=== PATIENT | female | born 1945 | race Caucasian/White ===

== ENCOUNTER 2018-09-27 17:11 | Observation (INO) | payer OTHER ==
--- OUTSIDE RECORDS SUMMARY | 2018-09-27 17:32 | XMS REPORT | Clinical Summary ---
:1945 Author Organization [facility] Address [address] [place] [address] Care Team Providers Name Role Phone Lázaro Butterfield MD Primary Care Provider Allergies Active Allergy Reactions Severity Noted Date Comments Amlodipine Other (See Comments) 02/07/2016 "makes me sick" Diltiazem Hcl 02/07/2016 Codeine Anaphylaxis High 02/07/2016 Cannot breath Gabapentin Other (See Comments) 02/07/2016 Hydralazine Other (See Comments) 12/17/2017 Body aches and coughing Hydrocodone Shortness Of Breath High 02/07/2016 Losartan-Hydrochlorothia Hives 02/07/2016 zide Latex, Natural Rubber 02/07/2016 "makes me skin breakout" Lisinopril 02/07/2016 Hydrocodone-Acetaminophe Shortness Of Breath High 02/07/2016 n Promethazine Other (See Comments) 02/07/2016 "Vomitting" Milnacipran 02/07/2016 Quetiapine 02/07/2016 Tramadol Palpitations, Other Medium 02/07/2016 (See Comments) Trazodone Shortness Of Breath High 02/07/2016 Simvastatin Other (See Comments) 02/07/2016 Blisters and rashes Medications Medication Sig Dispensed Refills Start Date End Date Status levothyroxine Take 75 mcg 0 Active (SYNTHROID, LEVOXYL) by mouth 75 mcg tablet every morning. aspirin (ECOTRIN) 81 Take 81 mg by 0 Active MG enteric coated mouth 2 (two) tablet times a day. estradiol (ESTRACE) 1 Take 1 mg by 0 Active MG tablet mouth nightly. clonAZEPAM (KlonoPIN) Take 0.5 mg 0 Active 0.5 MG tablet by mouth every 8 (eight) hours as needed for anxiety. metoprolol succinate Take 100 mg 0 Active XL (TOPROL-XL) 100 mg by mouth 2 24 hr tablet (two) times a day. omeprazole OTC Take 20 mg by 0 Active (PriLOSEC OTC) 20 MG mouth daily. EC tablet MAGNESIUM ORAL Take 1 tablet 0 Active by mouth daily. Patient stated takes OTC and doesnot know the dosage CYANOCOBALAMIN, Inject as 0 Active VITAMIN B-12, (B-12 directed COMPLIANCE INJ) every 30 (thirty) days. cholecalciferol, Take by mouth 0 Active vitamin D3, (VITAMIN daily. D3) 5,000 unit tablet docosahexanoic Take by mouth 0 Active acid/epa (FISH OIL daily. ORAL) ESTRADIOL, BULK, MISC Take 1 mg by 0 Discontinued mouth 8 nightly. meclizine (ANTIVERT) Take 25 mg by 0 Discontinued 25 mg tablet mouth 3 9 (three) times a day as needed for dizziness. dabigatran etexilate Take 1 60 capsule 0 12/18/2017 (PRADAXA) 150 mg capsule (150 8 capsuIndications: mg total) by Prevent mouth 2 (two) Thromboembolism in times a day Chronic Atrial for 30 days. Fibrillation phenazopyridine Take 1 tablet 30 tablet 0 08/09/2018 (PYRIDIUM) 200 MG (200 mg 9 tablet total) by mouth 3 (three) times a day as needed for bladder spasms for up to 10 days. Active Problems Problem Noted Date Renal mass 04/14/2017 Atrial fibrillation 02/07/2016 Encounters Date Type Specialty Care Team Description 08/09/2018 Surgery Urology Nico Mckeon CYSTOSCOPY, W/ 200 MD Xiang UNITS BOTULINUM TOXIN INJECTED INTO THE BLADDER 08/09/2018 Anesthesia Event Urology Donte Das DO 08/09/2018 Hospital Encounter Urology Nico Mckeon MD 01/25/2018 Hospital Encounter Procedural Cristy Crespo Paroxysmal atrial Cardiology MD Giovana fibrillation (HCC) 01/19/2018 Transcribe Orders Procedural Cristy Crespo Paroxysmal atrial Cardiology MD Giovana fibrillation (Primary Dx) 12/17/2017 Anesthesia Event Procedural Altaf Briggs, Cardiology 12/17/2017 Surgery Procedural Azk, Nadim Cv left atrial Cardiology MD Giovana appendage closure [87757 (CPT)] 12/17/2017 - Hospital Encounter Cardiology Cristy Crespo Atrial fibrillation , 12/18/2017 MD Giovana unspecified type 12/15/2017 Transcribe Orders Procedural Cristy Crespo Atrial fibrillation, Cardiology MD Giovana unspecified type (Primary Dx) after 09/26/2017 Family History Medical History Relation Name Comments Heart disease Father Heart disease Mother Relation Name Status Comments Father Mother Social History Tobacco Use Types Packs/Day Years Used Date Never Smoker Smokeless Tobacco: Never Used Alcohol Use Drinks/Week oz/Week Comments No Sex Assigned at Date Recorded Not on file Job Start Date Occupation Industry Not on file Not on file Not on file Travel History Travel Start Travel End No recent travel history available. Last Filed Vital Signs Vital Sign Reading Time Taken Blood Pressure 149/84 08/09/2018 11:35 AM CDT Pulse 80 08/09/2018 11:35 AM CDT Temperature 36.6 C (97.8 F) 08/09/2018 11:35 AM CDT Respiratory Rate 16 08/09/2018 11:35 AM CDT Oxygen Saturation 97% 08/09/2018 11:35 AM CDT Inhaled Oxygen Concentration - - Weight 70.9 kg (156 lb 6.4 oz) 08/09/2018 10:13 AM CDT Height 167.6 cm (5' 6") 08/09/2018 10:13 AM CDT Body Mass Index 25.24 08/09/2018 10:13 AM CDT Plan of Treatment Health Maintenance Due Date Last Done Comments BREAST CANCER SCREENING 09/05/1993 COLON CANCER SCREENING 09/05/1993 SHINGLES VACCINES (#1) 09/05/1993 65+ PNEUMOCOCCAL VACCINE (1 of 2 - PCV13) 09/05/2008 PNEUMOCOCCAL POLYSACCHARIDE VACCINE AGE 65 AND OVER 09/05/2008 INFLUENZA VACCINE 11/24/2018 Implants Implanted Type Area Insulation Blanket Maker Device Shelf Model / Identifier Expiration Serial / Date Lot Device Closure Watchcarlyle Felicia 24mm - [id number] Cardiovascular N/A: [place] 06/28/2020 [id number] / Implanted: 12/17/2017 (Quantity not on file) Implants N/A SCIENTIFIC / JEANINE [id number] Implantable Loop Recorder-07/17/2014 Implantable Loop Implanted: 07/17/2014 (Quantity not on file) Recorder Reveal Linq Shipwright-01/02/2015 Implanted: 01/02/2015 (Quantity not on file) Procedures Procedure Name Priority Date/Time Associated Diagnosis Comments CA AN ELECTIVE Routine 08/09/2018 10:32 AM SUPRAGLOTTIC AIRWAY CDT Procedure Note - Renetta Chang - 08/09/2018 10:32 AM CDT Airway Performed by: Renetta Chang Authorized by: Donte Das DO Location: OR Urgency: Elective Difficult Airway: No Performed by: resident/MATRIX REPAIRER/AA Preoxygenated with 100% O2: Yes Mask Ventilation: Not attempted Final Airway Type: Supraglottic airway Final LMA: I-Gel LMA Size: 4 Number of Attempts at Approach: 1 CYSTOSCOPY, WITH BOTULINUM TOXIN 08/09/2018 10:25 AM CDT OAB (overactive bladder) INJECTION Case Notes REQ 1030 START Special Needs REQ 1030 START ESTIMATED GFR Routine 08/09/2018 10:00 Results for this AM CDT procedure are in the results section. HC COMPLETE BLD COUNT Routine 08/09/2018 10:00 Results for this W/AUTO DIFF AM CDT procedure are in the results section. BASIC METABOLIC PANEL Routine 08/09/2018 10:00 Results for this AM CDT procedure are in the results section. ECG 12-LEAD Routine 08/09/2018 9:51 Results for this AM CDT procedure are in the results section. URINALYSIS SCREEN AND Routine 08/09/2018 9:45 Results for this MICROSCOPY, WITH REFLEX AM CDT procedure are in TO CULTURE the results section. URINE CULTURE Routine 08/09/2018 9:45 Results for this AM CDT procedure are in the results section. ECHOCARDIOGRAM Routine 01/25/2018 2:25 Paroxysmal atrial Results for this TRANSESOPHAGEAL W PM CDT fibrillation (HCC) procedure are in DOPPLER COLORFLOW the results section. POC GLUCOSE Routine 12/18/2017 12:41 Results for this PM CDT procedure are in the results section. HC COMPLETE BLD COUNT Routine 12/18/2017 5:05 Results for this W/AUTO DIFF AM CDT procedure are in the results section. ZZESTIMATED GFR Routine 12/18/2017 4:00 Results for this AM CDT procedure are in the results section. BASIC METABOLIC PANEL Routine 12/18/2017 4:00 Results for this AM CDT procedure are in the results section. HEMOGLOBIN Timed 12/17/2017 3:35 Results for this PM CDT procedure are in the results section. ZZESTIMATED GFR Timed 12/17/2017 3:00 Results for this PM CDT procedure are in the results section. CREATININE LEVEL Timed 12/17/2017 3:00 Results for this PM CDT procedure are in the results section. CV LEFT ATRIAL Routine 12/17/2017 2:44 Atrial fibrillation, Results for this APPENDAGE CLOSURE PM CDT unspecified type procedure are in the results section. ACTIVATED CLOTTING TIME Routine 12/17/2017 2:37 Results for this PM CDT procedure are in the results section. ANESTHESIA MIGUEL Routine 12/17/2017 2:34 PM CDT Procedure Note - Jostin Perea CRNA - 12/17/2017 2:34 PM CDT Procedure Performed: MIGUEL Start Time: End Time: Preanesthesia Checklist: Patient identified, IV assessed, risks and benefits discussed, monitors and equipment assessed, procedure being performed at surgeon's request, anesthesia consent obtained. General Procedure Information Diagnostic Indications for Echo: assessment of ascending aorta and assessment of surgical repair Physician Requesting Echo: CRISTY CRESPO JR. Location performed: laborer hoisting Intubated Bite block placed Heart visualized Probe Insertion: Easy Probe Type: Multiplane Modalities: Color flow mapping, 2D only, continuous wave Doppler and pulse wave Doppler Echocardiographic and Doppler Measurements Ventricles Right Ventricle: Cavity size normal. Hypertrophy not present. Thrombus not present. Global function normal. Left Ventricle: Cavity size normal. Hypertrophy not present. Thrombus not present. Global Function normal. Ejection Fraction 60%. Valves Aortic Valve: Annulus normal. Stenosis not present. Regurgitation absent. Leaflets normal. Leaflet motions normal. Mitral Valve: Annulus normal. Stenosis not present. Regurgitation absent. Leaflets normal. Leaflet motions normal. Tricuspid Valve: Annulus normal. Stenosis not present. Regurgitation absent. Leaflets normal. Leaflet motions normal. Pulmonic Valve: Annulus normal. Stenosis not present. Regurgitation absent. Aorta Ascending Aorta: Size normal. Dissection not present. Plaque thickness less than 3 mm. Mobile plaque not present. Aortic Arch: Size normal. Dissection not present. Plaque thickness less than 3 mm. Mobile plaque not present. Descending Aorta: Size normal. Dissection not present. Plaque thickness less than 3 mm. Mobile plaque not present. Atria Right Atrium: Size normal. Spontaneous echo contrast not present. Thrombus not present. Tumor not present. Device not present. Left Atrium: Size dilated. Spontaneous echo contrast not present. Thrombus not present. Tumor not present. Device not present. Left atrial appendage normal. Septa Atrial Septum: Intra-atrial septal morphology contains atrial septal defect. Ventricular Septum: Intra-ventricular septum morphology normal. Other Findings Pericardium: normal Pleural Effusion: none Pulmonary Arteries: normal Pulmonary Venous Flow: normal Anesthesia Information Performed Personally Anesthesiologist: ALTAF BRIGGS. Echocardiogram Comments: LVEF normal. RV ef normal. Small anterior pericardial effusion. No clot in FELICIA. No valvular abnormalities. No dissection S/p 24 mm watchman No leak. In adequate position. Pericardial effusion unchanged. Residual ASD noted. ACTIVATED CLOTTING TIME Routine 12/17/2017 2:25 PM CDT ACTIVATED CLOTTING TIME Routine 12/17/2017 2:19 PM CDT ACTIVATED CLOTTING TIME Routine 12/17/2017 2:13 PM CDT ACTIVATED CLOTTING TIME Routine 12/17/2017 1:44 PM CDT CA AN ELECTIVE ENDOTRACHEAL Routine 12/17/2017 1:43 PM CDT AIRWAY Procedure Note - Jostin Perea CRNA - 12/17/2017 1:43 PM CDT Airway Date/Time: 12/17/2017 1:28 PM Performed by: JOSTIN PEREA Authorized by: ALTAF BRIGGS Location: OR Urgency: Elective Difficult Airway: No Anesthesiologist: ALTAF BRIGGS. Resident/MATRIX REPAIRER/AA: LARRY CARDOSO Performed by: resident/MATRIX REPAIRER/AA Preoxygenated with 100% O2: Yes C-spine Precautions Maintained Throughout: Yes Mask Ventilation: Easy mask Final Airway Type: Endotracheal airway Final Endotracheal Airway: ETT Cuffed: Yes Technique Used: Direct laryngoscopy Devices/Methods Used in Placement: Intubating stylet Insertion Site: Oral Blade Type: Powell Laryngoscope Blade/Videolaryngoscope Blade Size: 2 ETT Size (mm): 7.0 Cuff at minimum occlusion pressure: Yes Measured from: Lips ETT to Lips (cm): 21 Placement Verified by: CO2 detection, direct visualization and equal breath sounds Laryngoscopic view: Grade I - full view of glottis Rapid Sequence Induction (RSI): No Modified RSI: No Number of Attempts at Approach: 1 Atraumatic intubation, teeth and lips intact, ETT secured via tape and connected to the OR vent. Patient tolerated intubation well. ARTERIAL LINE Routine 12/17/2017 1:42 PM CDT Procedure Note - Jostin Perea CRNA - 12/17/2017 1:42 PM CDT Arterial line Performed by: JOSTIN PEREA Authorized by: ALTAF BRIGGS Patient Location: OR Start Time: 12/17/2017 1:31 PM End Time: 12/17/2017 1:32 PM Staff: Anesthesiologist: ALTAF BRIGGS Resident/MATRIX REPAIRER/AA: JOSTIN PEREA Performed by: Resident/MATRIX REPAIRER/AA Pre-procedure: patient identified, IV checked, site and side verified, risks and benefits discussed, procedure verified, surgical consent complete, patient position confirmed, monitors and equipment checked and pre-op evaluation complete MSBT: antiseptic used, all elements of maximal sterile barrier technique followed, hand hygiene performed, cap/gown used by other personnel and solutions labeled TIme Out Performed: 12/17/2017 1:30 PM Indications: Indications: multiple ABGs and hemodynamic monitoring Anesthesia: Anesthesia: General Procedure Details: Arterial Line placement: Placed post induction Line placement site: Radial Line placement side: Left Arterial line gauge: 20 G Number of attempts: 1 Ultrasound guidance used: Yes Post-procedure: Post-procedure: Sterile dressing applied Post procedure circulation, sensation, movement: Unchanged Patient tolerance: Patient tolerated the procedure well with no immediate complications TYPE AND SCREEN STAT 12/17/2017 10:18 AM CDT PROTHROMBIN TIME WITH INR Routine 12/17/2017 10:15 AM CDT ECG PRE/POST OP STAT 12/17/2017 9:03 AM CDT after 09/26/2017 Results Estimated GFR (08/09/2018 10:00 AM CDT) Estimated GFR 64 mL/min/1.73 STEPHEN ORIENTAL ORTHODOX Comment: [address] CatergoryUnitsInterpretation G1 >=90 Normal or high G2 60-89Mildly decreased [id number] to moderately decreased G0v55-32Uqgrqkgpeq to severely decreased G4 15-29Severely decreased G5 <15Kidney failure The eGFR was calculated using the Chronic Kidney Disease Epidemiology Collaboration (CKD-EPI) equation. Interpretation is based on recommendations of the National Kidney Foundation-Kidney Disease Outcomes Quality Initiative (NKF-KDOQI) published in 2014. Specimen Plasma specimen Performing Organization Address City/State/Zipcode Phone Number [facility] DEPARTMENT OF PATHOLOGY AND [address] [place] [address] [facility] [address] [place] [id number] CBC with platelet and differential (08/09/2018 10:00 AM CDT)Only the most recent of2 resultswithin the time period is included. WBC 7.47 4.50 - 11.00 [facility] k/uL HOSPITAL RBC 4.60 4.20 - 5.50 [facility] 14.2 12.0 - 16.0 [facility] HCT 42.1 37.0 - 47.0 % [facility] MCV 91.5 82.0 - 100.0 [facility] MCH 30.9 27.0 - 34.0 pg [facility] MCHC 33.7 31.0 - 37.[address] [facility] RDW - SD 42.6 37.0 - 55.0 fL [facility] MPV 9.5 8.8 - 13.2 fL [facility] Platelet count 246 150 - 400 k/uL [facility] Nucleated RBC 0.00 /100 WBC [facility] Neutrophils 63.5 39.0 - 69.0 % [facility] Lymphocytes 23.8 (L) 25.0 - 45.0 % [facility] Monocytes 8.4 0.0 - 10.0 % [facility] Eosinophils 3.1 0.0 - 5.0 % [facility] Basophils 0.9 0.0 - 1.0 % [facility] Immature granulocytes 0.3Comment: 0.0 - 1.0 % [facility] "Immature [facility] granulocytes" (promyelocytes , myelocytes, metamyelocytes ) Specimen Blood Performing Organization Address City/[facility]/Zipcode Phone Number [facility] DEPARTMENT OF PATHOLOGY AND [address] [place] [address] [address] Basic metabolic panel (08/09/2018 10:00 AM CDT)Only the most recent of2 resultswithin the time period is included. Sodium 140 135 - 148 mEq/L [facility] Potassium 4.8 3.5 - 5.0 mEq/L [facility] Chloride 101 98 - 112 mEq/L [facility] CO2 24 24 - 31 mEq/L [facility] Anion gap 15@ANIO 7 - 15 mEq/L [facility] BUN 11 8 - 23 mg/dL [facility] Creatinine 0.88 0.50 - 0.90 mg/dL [facility] Glucose 109 (H) 65 - 99 mg/dL [facility] Calcium 9.5 8.8 - 10.2 mg/dL [facility] Specimen Plasma specimen Performing Organization Address City/State/[facility] Phone Number [facility] DEPARTMENT OF PATHOLOGY AND [address] [place] [address] [facility] [place] [id number] [place] [address] ECG 12 lead (08/09/2018 9:51 AM CDT) Pathologist [facility] Ventricular rate 82 [facility] Atrial rate 288 [facility] QRSD interval 80 [facility] QT interval 388 [facility] QTC interval 453 [facility] QRS axis 1 78 [facility] T wave axis 63 [facility] EKG impression Atrial [facility] M[facility] fibrillation-Abnormal ECG-In automated comparison with ECG of 17-DEC-2017 09:03,-No significant change was found- Specimen Narrative Performed At Performing Organization Address City/State/[facility] Cent[facility]ode Phone Number [facility] [place] [place] [address] [place] [address] Urinalysis screen and microscopy, with reflex to culture (08/09/2018 9:45 AM CDT) Specimen site Clean catch [facility] Color, UA Straw [facility] Appearance, UA Clear [facility] Specific gravity, UA 1.014 1.001 - 1.035 [facility] pH, UA 7.0 5.0 - 8.5 [facility] Protein, UA Negative Negative [facility] Glucose, UA Negative Negative [facility] Ketones, UA Negative Negative [facility] Bilirubin, UA Negative Negative [facility] Blood, UA Negative Negative [facility] Nitrite, UA Negative Negative [facility] Urobilinogen, UA <2.0 <2.0 [facility] Leukocyte esterase, Negative Negative [facility] Epithelial cells, UA <1 /HPF [facility] WBC, UA None seen 0 - 4 /HPF [facility] RBC, UA 1 0 - 5 /HPF [facility] Bacteria, UA None seen None seen [facility] Yeast, UA None seen [facility] Yeast with None seen [facility] pseudohyphae, [facility] Hyaline casts, UA 1 /LPF [facility] Specimen Urine Performing Organization Address City/[facility] Centercode Phone Number [facility] DEPARTMENT OF PATHOLOGY AND [address] [place] [address] Urine culture (08/09/2018 9:45 AM CDT) Urine culture SEE COMMENTComment: [facility] B[facility] negative. Specimen Performing Organization Address City/[facility] Centercode Phone Number [facility] DEPARTMENT OF PATHOLOGY AND [address] [place] [address] Echocardiogram transesophageal (01/25/2018 2:25 PM CDT) Specimen Narrative Performed At [facility] Transesophageal Echo Report [address] [place], [place] [address] [address] Pat.Name:LADY RAINES Pat.ID:[id number] .Date: 01/25/2018 Refer.MD:CRISTY CRESPO MD Exam Time: 1:29:00 PMStudy Type:MIGUEL Height:66inWeight: 155lb BSA: 1.8 f4ZAPItg:1945,72Y Sex: FEMALEBP:160/86 HR:85 bpmSonogrphr: Sean Elizondo MD Pat. Stat.:OutpatientStudy Status:Final Echo Event ID:[id number] Order ID:[id number] Reason for Study:Atrial fibrillation, S/P Watchman Procedures:Transesophageal Echo with Colorflow Doppler Race: SUMMARY: LV EF is normal. Estimated EF is 60-64%. Watchman device is well seated in LA appendage without octavia-device leak. FINDINGS: MIGUEL:The attending office support performed the MIGUEL procedure and waspresent for the entire duration. The patient was counseledand an informed consent was obtained. Topical and intravenousanesthesia was administered. The esophagus was intubatedwithout difficulty. The probe was passed to the gastricfundus and all standard echocardiographic views wereobtained. The patient tolerated the procedure well. LV: LV size is normal. LV EF is normal. Overall wall motion is normal.Estimated EF is 60-64%. RV: RV size is normal. RV systolic function is normal. LA: LA volume is enlarged. Watchman device is well seated in LA appendagewithout octavia-device leak. RA: RA volume is enlarged. AO: Aortic root diameter is normal in size. Mild atherosclerotic changesseen in the aortic arch and descending aorta. OCTAVIA: No pericardial effusion. AV: No structural AV abnormalities noted. MV: No structural MV abnormalities noted. A trace of mitral regurgitation. PV: No structural PV abnormalities noted. A trace of pulmonic regurgitation. TV: No structural TV abnormalities noted. A trace of tricuspid regurgitation IAS:No evidence of interatrial shunt demonstrated by color Doppler. MIGUEL: Anesthesia: Moderate SedationASA Class: 3 Physician: Rupesh Odell MD Jumpbasting Machine Operator: Sean Elizondo MD Pre TEEBP HR Post MIGUEL BP HR 160/86 97525/78 89 Meds:Viscous xylocaine, Cetacaine spray to oropharynx, Versed 3 mg IV, Fentanyl 75 mcg IV Complications: None Condition: Stable Signed 01/25/2018 05:10 PM Rupesh Odell MD Procedure Note Interface, Radiology Results In - 01/25/2018 5:11 PM CDT Transesophageal Echo Report [address], [place], [place] [address] Pat.Name: LADY RAINES Pat.ID: [id number] .Date: 01/25/2018 Refer.MD: CRISTY CRESPO MD Exam Time: 1:29:00 PM Study Type:MIGUEL Height: 66in Weight: 155lb BSA: 1.8 m2 Age: 3 1945,72Y Sex: FEMALE BP: 160/86 HR: 85 bpm Sonogrphr: Sean Elizondo MD Pat. Stat.:Outpatient Study Status:Final Echo Event ID:[id number] Order ID: [id number] Reason for Study:Atrial fibrillation, S/P Watchman Procedures:Transesophageal Echo with Colorflow Doppler Race: SUMMARY: LV EF is normal. Estimated EF is 60-64%. Watchman device is well seated in LA appendage without octavia-device leak. FINDINGS: MIGUEL: The attending office support performed the MIGUEL procedure and was present for the entire duration. The patient was counseled and an informed consent was obtained. Topical and intravenous anesthesia was administered. The esophagus was intubated without difficulty. The probe was passed to the gastric fundus and all standard echocardiographic views were obtained. The patient tolerated the procedure well. LV: LV size is normal. LV EF is normal. Overall wall motion is normal. Estimated EF is 60-64%. RV: RV size is normal. RV systolic function is normal. LA: LA volume is enlarged. Watchman device is well seated in LA appendage without octavia-device leak. RA: RA volume is enlarged. AO: Aortic root diameter is normal in size. Mild atherosclerotic changes seen in the aortic arch and descending aorta. OCTAVIA: No pericardial effusion. AV: No structural AV abnormalities noted. MV: No structural MV abnormalities noted. A trace of mitral regurgitation. PV: No structural PV abnormalities noted. A trace of pulmonic regurgitation. TV: No structural TV abnormalities noted. A trace of tricuspid regurgitation IAS: No evidence of interatrial shunt demonstrated by color Doppler. MIGUEL: Anesthesia: Moderate Sedation ASA Class: 3 Physician: Rupesh Odell MD Jumpbasting Machine Operator: Sean Elizondo MD Pre MIGUEL BP HR Post MIGUEL BP HR 160/86 85 144/78 89 Meds: Viscous xylocaine, Cetacaine spray to oropharynx, Versed 3 mg IV, Fentanyl 75 mcg IV Complications: None Condition: Stable Signed 01/25/2018 05:10 PM Rupesh Odell MD Performing Organization Address [facility] Phone Number [facility] [address] [place] [address] POC glucose (12/18/2017 12:41 PM CDT) [facility] POC glucose 101 (H) 65 - 99 mg/dL [facility] DEPARTMENT OF Comment: PATHOLOGY AND No Action Needed GENOMIC MEDICINE [facility] Notified RN Meter ID: [id number] Plant Operations Vice President: Nasim Mcelroy Performing Organization Address [facility] Phone Number [facility] DEPARTMENT OF PATHOLOGY AND [address] [place] [address] GENOMIC MEDICINE Estimated GFR (12/18/2017 4:00 AM CDT)Only the most recent of2 resultswithin the time period is included. [facility] GFR Non Af Amer 49 (A) mL/min/1.73 [facility] DEPARTMENT OF m2 PATHOLOGY AND GENOMIC MEDICINE GFR Af Amer 59 (A) mL/min/1.73 [facility] DEPARTMENT OF Comment: m2 PATHOLOGY AND Chronic kidney disease: <60 mL/min/1.73m2 [facility] Kidney failure: <15 mL/min/1.73m2 The estimated GFR is calculated from the IDMS-traceable Modification of Diet in Renal Disease Equation. The accuracy of the calculation is poor when the creatinine is normal. Calculated values >90 mL/min/1.73m2 are not reported. This equation has not been validated in children (<18 years), women, the elderly (>70 years), or ethnic groups other than Caucasians and Americans. Specimen Plasma specimen Performing Organization Address City/State/[facility] Phone Number [facility] DEPARTMENT OF PATHOLOGY AND [address] [place] [address] Hemoglobin (12/17/2017 3:35 PM CDT) HGB 12.0 12.0 - 16.0 g/dL [facility] DEPARTMENT OF PATHOLOGY AND GENOMIC MEDICINE Specimen Blood Performing Organization Address [facility] Phone Number [facility] DEPARTMENT OF PATHOLOGY AND [address] [place], [place] [id number] [facility] Creatinine level (12/17/2017 3:00 PM CDT) Creatinine 0.9 0.5 - 0.9 mg/dL [facility] DEPARTMENT OF PATHOLOGY AND GENOMIC MEDICINE Specimen Plasma specimen Performing Organization Address [facility] Phone Number [facility] DEPARTMENT OF PATHOLOGY AND [address] [place] [address] Cv laboratory assistant procedure (12/17/2017 2:44 PM CDT) Specimen Narrative Performed At TITLE OF PROCEDURE: CUPID Insertion of left atrial appendage occlusion device (WATCHMAN). PREOPERATIVE DIAGNOSES: 1.Persistent atrial fibrillation. 2.High CHADS-VASc score. 3.Hypertension. 4.Gastrointestinal hemorrhage. POSTOPERATIVE DIAGNOSES: 1.Persistent atrial fibrillation. 2.High CHADS-VASc score. 3.Hypertension. 4.Gastrointestinal hemorrhage. PROCEDURES PERFORMED: 1.General anesthesia. 2.Insertion of left atrial appendage occlusion device (WATCHMAN). BRIEF HISTORY AND CLINICAL BACKGROUND: This is a 72-year-old woman, soon to be 73-year-old with a history of hypertension and chronic atrial fibrillation.She has a known history of lower gastrointestinal hemorrhage.Because of her CHADS-VASc score and risk of chronic or significant lower gastrointestinal hemorrhage, she has been felt to be a poor candidate for the long-term oral anticoagulation.Because of her high CHADS-VASc score, we discussed implantation of a WATCHMAN.She and her primary office support and paint stockman have given a thoughtful consideration and we are all in agreement that she is an adequate candidate for this procedure. DESCRIPTION OF PROCEDURE: The patient was taken to the EP lab in the fasting nonsedated drug-free state. Informed consent had been obtained and reconfirmed.She was prepped and draped in usual sterile fashion.General anesthesia was achieved.Access to the right femoral vein was achieved and a 5-Bruneian sheath was utilized for venous access. Through the other access, a medium curved Agilis sheath was advanced and utilizing standard fluoroscopic approach guided by transesophageal echocardiography, the transseptal puncture was performed and left atrial pressure measurements were obtained.Thereafter, utilizing an Amplatz Super-Stiff wire, was advanced into the left superior pulmonary vein and the Agilis sheath was exchanged for a double-curved [employer] WATCHMAN deployment sheath.This sheath was placed into the left atrium and then subsequently a pigtail catheter was utilized to cannulate the left atrial appendage and identified the appropriate lobe into which the WATCHMAN would be deployed.Angiography was taken in different angulations as necessary. Measurements were taken and a 24-mm WATCHMAN device was selected.This was placed in standard fashion.After deployment, it was tug tested, it was evaluated under transesophageal echocardiography for appropriate anatomic deployment.It was evaluated for compression and it was evaluated for jet leakage via color Doppler.At the conclusion of this, the device was released and the guide sheath was returned to the right side of the intraatrial septum. Heparin was then reversed and the sheaths were removed and hemostasis was achieved utilizing digital pressure as well as a [id number] stitch above the vein in the venotomy sites. COMPLICATIONS: None. FINDINGS: 1.Estimated blood loss 50 mL. 2.The Watchman device is a [employer] 24 mm, lot #[id number], reference [id number]. 3.Tug test was nominal. 4.A 2D transesophageal echocardiography was nominal.Compressions at 0 were 21 degrees, at 45 degrees was 20 degrees, at 90 degrees was 17 degrees, at 135 degrees was 16 degrees.There was no leakage noted at any angulation. OTHER FINDINGS: Mean left atrial pressure 14 mmHg. CONCLUSIONS: Successful deployment of WATCHMAN device. RECOMMENDATIONS: Initiate anticoagulation in 4 hours post bed rest and discharge to home in the morning. Performing Organization Address City/[facility]/Zipcode Phone Number [facility] [address] [place] [address] Activated clotting time (12/17/2017 2:37 PM CDT)Only the most recent of5 resultswithin the time period is included. Pathologist [facility] Activated 87 (L) 96 - 152 sec [facility] DEPARTMENT OF clotting time Comment: PATHOLOGY AND Meter ID: [id number] GENOMIC MEDICINE Plant Operations Vice President: Brit Lisa Specimen Performing Organization Address [facility] Phone Number [facility] DEPARTMENT OF PATHOLOGY AND [address] [place] [phone] GENOMIC MEDICINE Type and screen (12/17/2017 10:18 AM CDT) Pathologist [facility] ABO grouping A [facility] DEPARTMENT OF PATHOLOGY AND GENOMIC MEDICINE Rh type POS [facility] DEPARTMENT OF PATHOLOGY AND GENOMIC MEDICINE Antibody screen (gel) NEG [facility] DEPARTMENT OF PATHOLOGY AND GENOMIC MEDICINE Specimen Blood Performing Organization Address [facility] Phone Number [facility] DEPARTMENT OF PATHOLOGY AND [address] [place] [phone] [facility] Prothrombin time with INR (12/17/2017 10:15 AM CDT) Pathologist [facility] Prothrombin time 12.4 12.0 - 15.0 [facility] DEPARTMENT OF sec PATHOLOGY AND GENOMIC MEDICINE INR 0.9 [facility] DEPARTMENT OF Comment: PATHOLOGY AND The International Normalized Ratio (INR) is a therapeutic GENOMIC MEDICINE monitoring tool for patients who are stable on oral anticoagulant therapy. An INR of 2.0-3.0 is suggested for deep vein thrombosis/pulmonary embolism. Specimen Blood Performing Organization Address [facility] Phone Number [facility] DEPARTMENT OF PATHOLOGY AND [address] [place] [phone] [facility] ECG Pre/Post Op (12/17/2017 9:03 AM CDT) Ventricular rate 108 [facility] Atrial rate 288 [facility] QRSD interval 80 [facility] QT interval 364 [facility] QTC interval 487 [facility] QRS axis 1 51 [facility] T wave axis 79 [facility] EKG impression Atrial fibrillation [facility] with rapid ventricular response-Abnormal ECG-In automated comparison with ECG of 21-JUL-2017 07:14,-No significant change was found- Specimen Performing Organization Address City/State/Zipcode Phone Number [facility] [address] [place] [address] after 09/26/2017 Insurance Payer Benefit Plan / Subscriber ID Effective Dates Phone Address Type Group MEDICARE MEDICARE xxxxxxxxxxx 2008-Present Medicare RAILROAD RAILROAD RESERVE RESERVE xxxxxxxxxx 2013-Present [employer] Advance Directives Patient has advance care planning documents, and code status on file. For more information, please contact:Pepe Burr[address] [place] [address] Code Status Date Activated Date Inactivated Comments Full Code 04/14/2017 4:02 PM 04/15/2017 4:12 PM Code Status decision reached by: Patient
--- OUTSIDE RECORDS SUMMARY | 2018-09-27 17:33 | XMS REPORT | Clinical Summary ---
:1945 Author Organization [facility] Address [address] [place] [address] Care Team Providers Name Role Phone Lázaro Butterfield Todd Primary Care Provider Allergies Active Allergy Reactions Severity Noted Date Comments Codeine Shortness Of Breath High 12/26/2016 Hydrocodone-Acetaminophen Shortness Of Breath High 12/26/2016 Promethazine-Dm Nausea And Vomiting 12/26/2016 Sihhjhn-Hnf-Cqg Reductase Inhibitors Rash Low 12/26/2016 Tramadol Nausea And Vomiting 12/26/2016 Trazodone Itching High 12/26/2016 Medications Medication Sig Dispensed Refills Start Date End Date Status levothyroxine Take 75 mcg by 0 Active (SYNTHROID, mouth Every LEVOTHROID) 75 MCG morning on an tablet empty stomach. amiodarone (PACERONE) Take 200 mg by 0 Active 200 MG tablet mouth daily. aspirin 81 MG EC Take 81 mg by 0 Active tablet mouth 2 (two) times daily. clonazePAM (KLONOPIN) Take 0.5 mg by 0 Active 0.5 MG tablet mouth 2 (two) times daily as needed for Anxiety. cholecalciferol, Take 5,000 0 Active vitamin D3, 5,000 unit Units by mouth Tab daily. amLODIPine (NORVASC) Take 1 tablet 30 tablet 0 12/29/2016 12/29/2017 10 MG tablet (10 mg total) by mouth daily. lisinopril Take 1 tablet 30 tablet 0 12/29/2016 12/29/2017 (PRINIVIL,ZESTRIL) 10 (10 mg total) MG tablet by mouth daily. Active Problems Problem Noted Date Chest pain 12/26/2016 Social History Tobacco Use Types Packs/Day Years Used Date Never Smoker Smokeless Tobacco: Never Used Alcohol Use Drinks/Week oz/Week Comments No has not drank alcohol in a long time. Sex Assigned at Date Recorded Not on file Job Start Date Occupation Industry Not on file Not on file Not on file Travel History Travel Start Travel End No recent travel history available. Last Filed Vital Signs Not on file Plan of Treatment Not on file Results Not on fileafter 09/26/2017 Insurance Payer Benefit Plan / Group Subscriber ID Type Phone Address MEDICARE MEDICARE A B xxxxxxxxxx Medicare [facility] GENERIC MEDIC[facility]PP[facility]INDIVIDUAL SUPPLEMENT
--- OUTSIDE RECORDS SUMMARY | 2018-09-27 17:33 | XMS REPORT ---
:1945 [facility] Address [address] [place] [address] Care Team Providers Name Role Phone LENARD LUNA Unavailable Unavailable Payers Payer Name Policy Type Policy Number Effective Date Expiration Date Problems This patient has no known problems. Allergies, Adverse Reactions, Alerts Allergy Name Allergy Status Severity Reaction(s) Onset Inactive Treating Comments Type Date Date Clinician promethazine DA Active [place] 2009-04 HCl 05-11 00:00: 00 hydrocodone bit DA Active [place] 2009-04 00:00: 00 propoxyphene DA Active [place] 2009-04 napsylate 05-11 00:00: 00 atorvastatin DA Active [place] 2009-04 calcium 05-11 00:00: 00 quetiapine DA Active [place] 2009-04 fumarate 05-11 00:00: 00 codeine DA Active [place] 2009-04 00:00: 00 acetaminophen DA Active [place] 2009-04 00:00: 00 simvastatin DA Active [place] 2009-04 00:00: 00 trazodone DA Active [place] 2009-04 00:00: 00 latex DA Active [place] 2009-04 00:00: 00 Medications This patient has no known medications. Results Test Description Test Time Test Comments Text Results Atomic Results Result Comments - MRI L-SPINE W/O CONT 2018-06-14 09:54:00 Patient Name: SAVANNA CASTILLO Unit No: [id number] EXAMS: CPT CODE: [id number] MRI L-SPINE W/O CONT 13016 TECHNIQUE: Multiplanar, multisequence MRI examination performed of the lumbar spine without intravenous contrast material. COMPARISON: MR dated 04/08/2010 FINDINGS: Postoperative changes of L3-L5 posterior decompression and fusion demonstrated. There is also posterior decompression and interbody fusion at L5-S1 Alignment: Grade 1 spondylolisthesis of L5-S1. Bone Lesion: No suspicious osseous lesion. Degenerative marrow signal is seen at L2-L3. Fracture: None present. Paraspinal Soft Tissues: A complex exophytic left renal mass measuring 2.5 cm appears new compared to prior imaging. Conus Medullaris: Termination at L1 level. Morphology is normal. L1/2: No significant abnormality. L2/3: Marked disc degeneration with endplate marrow changes and broad disc bulge. Moderate facet hypertrophy and ligamentum flavum thickening. There is moderate central canal stenosis without significant foraminal narrowing. These findings have increased compared to prior exam. L3/4: Discectomy with interbody graft. Central canal is decompressed with posterior fusion. No significant foraminal stenosis. L4/5: Discectomy with interbody graft. Central canal is decompressed with posterior fusion. No significant foraminal stenosis. L5/S1: Grade 1 spondylolisthesis. Discectomy and interbody fusion. The central canal is decompressed. No significant foraminal stenosis. IMPRESSION: 1. Development of an exophytic left renal mass measuring 2.5 cm, concerning for malignancy. Recommend further evaluation with renal mass protocol MRI. 2. Postoperative lumbar spine with progression in spondylosis at L2-L3, where there is moderate central canal stenosis. at 0954 Reported and signed by: Josafat Lux M.D. [facility] NAME: SAVANNA CASTILLO [address] [facility] PHYS: Justo Negron MD : 1945 AGE: 72 SEX: F [place], [place] [address] LOC: Y.MRI PHONE #: [phone] EXAM DATE: 06/13/2018 STATUS: DEP CLI FAX #: [phone] RAD #: [id number] D/C DT PAGE 1 Signed Report (CONTINUED) Patient Name: SAVANNA CASTILLO Unit No: [id number] EXAMS: CPT CODE: [id number] MRI L-SPINE W/O CONT 21498 <Continued> CC: Lázaro Butterfield MD; Kris Adames M.D. Technologist: BALBINA KMI MRI Transcribed D/ (0954) Marshal [facility] NAME: SAVANNA CASTILLO [address] [facility] PHYS: Justo Negron MD : 1945 AGE: 72 SEX: F [place] [address] LOC: Y.MRI PHONE #: [phone] EXAM DATE: 06/13/2018 STATUS: DEP CLI FAX #: [phone] RAD #: [id number] D/C DT PAGE 2 Signed Report Patient Name: SAVANNA CASTILLO Unit No: [id number] EXAMS: CPT CODE: [id number] MRI L-SPINE W/O CONT 31429 <Continued> Orig Print D/T: S: 06/14/2018 (0957) [facility] NAME: SAVANNA CASTILLO [address] [facility] PHYS: Justo Negron MD : 1945 AGE: 72 SEX: F [place] [address] LOC: Y.MRI PHONE #: [phone] EXAM DATE: 06/13/2018 STATUS: DEP CLI FAX #: [phone] RAD #: [id number] D/C DT PAGE 3 Signed Report - MRI LW JNT W/O CONT LT 2018-06-04 07:09:00 Patient Name: SAVANNA CASTILLO Unit No: [id number] EXAMS: CPT CODE: [id number] MRI LW JNT W/[place] [address] MRI OF THE PELVIS AND HIPS WITH SPECIAL ATTENTION TO THE LEFT HIP DIAGNOSIS: 1. Partial-thickness tears of the gluteus medius tendon insertions left worse than right without tendon retraction or muscular atrophy. Small effusions are seen in the trochanteric bursa bilaterally. 2. Bilateral hip joint degenerative change with superior cartilage irregularity and superior labral tearing. Also noted is a herniation. In the left proximal femur at the head neck junction anteriorly. 3. Low-grade partial thickness tears of the hamstring tendon insertions right worse than left without tendon retraction or muscular atrophy. COMMENT: COMPARISON: No prior exams available. Scans were performed in the sagittal, axial and coronal planes utilizing T1, spin density with fat saturation, inversion recovery and T2-weighted pulse sequences. A bony abnormality is seen in the left proximal femur at the head neck junction. Hip joint degenerative changes are present as noted. Tendon abnormalities are present as described. There is mild bilateral trochanteric bursitis. No muscle strains or tears are seen. There is no evidence for a pelvic mass or free pelvic fluid. at 0709 Reported and signed by: Misha Benavides MD CC: Lázaro Butterfield MD; Aguila Servin MD Technologist: Rosa M Lew RT(R) Transcribed D/ (708) Eric.RENO [facility] NAME: SAVANNA CASTILLO [address] [facility] PHYS: GOMMU. - Aguila Servin : 1945 AGE: 72 SEX: F [place] [address] LOC: Y.MRI PHONE #: [phone] EXAM DATE: 06/03/2018 STATUS: DEP CLI FAX #: [phone] RAD #: [id number] D/C DT PAGE 1 Signed Report Patient Name: SAVANNA CASTILLO Unit No: [id number] EXAMS: CPT CODE: [id number] MRI LW JNT W/[place] [address] <Continued> Orig Print D/T: S: 06/04/2018 (12) [facility] NAME: SAVANNA CASTILLO [address] [facility] PHYS: GOMMU. - DaneAguila valerio Ray : 1945 AGE: 72 SEX: F [place] [address] LOC: Y.MRI PHONE #: [phone] EXAM DATE: 06/03/2018 STATUS: DEP WISAM FAX #: [phone] RAD #: [id number] D/C DT PAGE 2 Signed Report MAGNESIUM 2016-12-28 06:33:00 Test Item Value Reference Range Comments MAGNESIUM (BEAKER) (test iggz=822) 1.9 mg/dL 1.6-2.6 BASIC METABOLIC [id number] 06:33:00 Test Item Value Reference Range Comments SODIUM (BEAKER) (test 138 meq/L 136-145 ikcm=621) POTASSIUM (BEAKER) (test 4.0 meq/L 3.5-5.1 zssm=238) CHLORIDE (BEAKER) (test 105 meq/L 98-107 ihdo=968) CO2 (BEAKER) (test 24 meq/L 22-29 uxtg=307) BLOOD UREA NITROGEN 10 mg/dL 7-21 (BEAKER) (test ffbl=127) CREATININE (BEAKER) (test 0.88 mg/dL 0.57-1.25 lnpq=895) GLUCOSE RANDOM (BEAKER) 98 mg/dL 70-105 (test uisr=685) CALCIUM (BEAKER) (test 9.1 mg/dL 8.4-10.2 hofq=841) EGFR (BEAKER) (test 63 mL/min/1.73 sq m ESTIMATED GFR IS NOT yjbw=5196) ACCURATE CREATININE CLEARANCE IN PREDICTING GLOMERULAR FILTRATION RATE. ESTIMATED GFR IS NOT APPLICABLE FOR DIALYSIS PATIENTS. [id number] 06:33:00 Test Item Value Reference Range Comments AMYLASE (BEAKER) (test ryrb=391) 54 U/L 25-125 IRON, TIBC, % SAT. (WITHOUT FERRITIN)2016-12-28 06:23:00 Test Item Value Reference Range Comments IRON (BEAKER) (test zigz=616) 30 ug/dL 40-160 TOTAL IRON BINDING CAPACITY (BEAKER) (test 316 ug/dL 250-450 hesr=439) IRON % SATURATION (2) (BEAKER) (test qtpn=9654) 9 % 20-55 CBC W/PLT COUNT & AUTO [id number] 06:16:00 Test Item Value Reference Range Comments WHITE BLOOD CELL COUNT (BEAKER) (test gshe=742) 6.2 K/ L 3.5-10.5 RED BLOOD CELL COUNT (BEAKER) (test etul=312) 3.83 M/ L 3.93-5.22 HEMOGLOBIN (BEAKER) (test xtsz=995) 9.7 GM/DL 11.2-15.7 HEMATOCRIT (BEAKER) (test zhpp=431) 31.1 % 34.1-44.9 MEAN CORPUSCULAR VOLUME (BEAKER) (test auna=195) 81.2 fL 79.4-94.8 MEAN CORPUSCULAR HEMOGLOBIN (BEAKER) (test 25.3 pg 25.6-32.2 ptaq=949) MEAN CORPUSCULAR HEMOGLOBIN CONC (BEAKER) (test 31.2 GM/DL 32.2-35.5 ogyf=538) RED CELL DISTRIBUTION WIDTH (BEAKER) (test 16.6 % 11.7-14.4 dmbi=468) PLATELET COUNT (BEAKER) (test jjgl=677) 294 K/CU MM 150-450 MEAN PLATELET VOLUME (BEAKER) (test vwxv=945) 9.4 fL 9.4-12.3 NUCLEATED RED BLOOD CELLS (BEAKER) (test 0 /100 WBC 0-0 ajxy=438) NEUTROPHILS RELATIVE PERCENT (BEAKER) (test 61 % sthk=594) LYMPHOCYTES RELATIVE PERCENT (BEAKER) (test 27 % ugcj=369) MONOCYTES RELATIVE PERCENT (BEAKER) (test 10 % uztm=220) EOSINOPHILS RELATIVE PERCENT (BEAKER) (test 2 % aaya=278) BASOPHILS RELATIVE PERCENT (BEAKER) (test 1 % yylh=746) NEUTROPHILS ABSOLUTE COUNT (BEAKER) (test 3.77 K/ L 1.56-6.13 lhcp=769) LYMPHOCYTES ABSOLUTE COUNT (BEAKER) (test 1.64 K/ L 1.18-3.74 hitl=922) MONOCYTES ABSOLUTE COUNT (BEAKER) (test 0.62 K/ L 0.24-0.36 rpaa=636) EOSINOPHILS ABSOLUTE COUNT (BEAKER) (test 0.10 K/ L 0.04-0.36 biad=769) BASOPHILS ABSOLUTE COUNT (BEAKER) (test 0.03 K/ L 0.01-0.08 rgar=044) IMMATURE GRANULOCYTES-RELATIVE PERCENT (BEAKER) 0 % 0-1 (test jpqo=0021) [id number] 14:25:00 Test Item Value Reference Range Comments FERRITIN (BEAKER) (test kxvs=456) 28 ng/mL 5-275 Effective 03/13/2014: Reference Range ChangeNew: Male 5-275 Previous: Male 22-322 Female 5-275 Female 10-291TSH/FREE T4 IF [id number] 14:25:00 Test Item Value Reference Range Comments THYROID STIMULATING HORMONE (BEAKER) (test 1.47 uIU/mL 0.35-4.94 weqb=762) HEPATIC FUNCTION [id number] 14:04:00 Test Item Value Reference Range Comments TOTAL PROTEIN (BEAKER) (test 6.5 gm/dL 6.0-8.3 Specimen slightly hemolyzed gbxc=610) ALBUMIN (BEAKER) (test 3.6 g/dL 3.5-5.0 Specimen slightly hemolyzed aeej=7557) BILIRUBIN TOTAL (BEAKER) (test 0.5 mg/dL 0.2-1.2 Specimen slightly hemolyzed wmpw=722) BILIRUBIN DIRECT (BEAKER) (test 0.2 mg/dL 0.1-0.5 Specimen slightly hemolyzed wozu=695) ALKALINE PHOSPHATASE (BEAKER) 56 U/L 40-150 (test aapm=543) AST (SGOT) (BEAKER) (test 33 U/L 5-34 Specimen slightly hemolyzed bflb=462) ALT (SGPT) (BEAKER) (test 37 U/L 6-55 Specimen slightly hemolyzed qpeb=623) RETICULOCYTE [id number] 13:37:00 Test Item Value Reference Range Comments RETICULOCYTE COUNT PCT (BEAKER) (test tach=782) 1.7 % 0.5-1.7 HEMOGLOBIN [id number] 10:31:00 Test Item Value Reference Range Comments HEMOGLOBIN A1C (BEAKER) (test yuek=933) 7.0 % 4.3-6.1 TROPONIN [id number] 05:43:00 Test Item Value Reference Range Comments TROPONIN I (BEAKER) (test mjwq=354) 0.19 ng/mL 0.00-0.03 Effective 03/13/2014: Reference Range ChangeNew: 0.00-0.03 Previous 0.00- 0.15Troponin I (TnI) levels must be interpreted in the context of the presenting symptoms and the clinical findings. Elevated TnI levels indicate myocardial damage, but are not specific for ischemic heart disease. Elevated TnI levels are seen in patients with other cardiac conditions (including myocarditis and congestive heartfailure), and slight TnI elevations occur in patients with other conditions, including sepsis, renalfailure, acidosis, acute neurological disease, and persistent tachyarrhythmia.[id number] 05:34: 00 Test Item Value Reference Range Comments MAGNESIUM (BEAKER) (test dijb=944) 1.7 mg/dL 1.6-2.6 BASIC METABOLIC [id number] 05:34:00 Test Item Value Reference Range Comments SODIUM (BEAKER) (test 138 meq/L 136-145 nmxa=964) POTASSIUM (BEAKER) (test 4.0 meq/L 3.5-5.1 agwf=112) CHLORIDE (BEAKER) (test 104 meq/L 98-107 zxbq=291) CO2 (BEAKER) (test 24 meq/L 22-29 umjq=969) BLOOD UREA NITROGEN 9 mg/dL 7-21 (BEAKER) (test mvcz=128) CREATININE (BEAKER) (test 0.81 mg/dL 0.57-1.25 puje=997) GLUCOSE RANDOM (BEAKER) 106 mg/dL 70-105 (test imfe=627) CALCIUM (BEAKER) (test 8.8 mg/dL 8.4-10.2 klmt=381) EGFR (BEAKER) (test 69 mL/min/1.73 sq m ESTIMATED GFR IS NOT orpw=9548) ACCURATE CREATININE CLEARANCE IN PREDICTING GLOMERULAR FILTRATION RATE. ESTIMATED GFR IS NOT APPLICABLE FOR DIALYSIS PATIENTS. LIPID [id number] 05:34:00 Test Item Value Reference Range Comments TRIGLYCERIDES (BEAKER) (test tmvn=788) 108 mg/dL CHOLESTEROL (BEAKER) (test pusj=930) 266 mg/dL HDL CHOLESTEROL (BEAKER) (test xxud=091) 65 mg/dL LDL CHOLESTEROL CALCULATED (BEAKER) (test 179 mg/dL jsul=729) Triglyceride Reference Range: Low Risk <150 Borderline 150- 199 High Risk 200-499 Very High Risk >=500Cholesterol Reference Range: Low Risk <200 Borderline 200-239 High Risk > 240HDL Cholesterol Reference Range: Low Risk >=60 High Risk <40LDL Cholesterol Reference Range: Optimal <100 Near Optimal 100-129 Borderline 130-159 High 160-189 Very High >=190CBC W/PLT COUNT & AUTO [id number] 05:33:00 Test Item Value Reference Range Comments WHITE BLOOD CELL COUNT (BEAKER) (test gaxq=806) 5.9 K/ L 3.5-10.5 RED BLOOD CELL COUNT (BEAKER) (test txvp=254) 3.50 M/ L 3.93-5.22 HEMOGLOBIN (BEAKER) (test nvrl=691) 8.9 GM/DL 11.2-15.7 HEMATOCRIT (BEAKER) (test ewcq=448) 28.6 % 34.1-44.9 MEAN CORPUSCULAR VOLUME (BEAKER) (test trjo=330) 81.7 fL 79.4-94.8 MEAN CORPUSCULAR HEMOGLOBIN (BEAKER) (test 25.4 pg 25.6-32.2 zqxy=025) MEAN CORPUSCULAR HEMOGLOBIN CONC (BEAKER) (test 31.1 GM/DL 32.2-35.5 yglt=140) RED CELL DISTRIBUTION WIDTH (BEAKER) (test 16.3 % 11.7-14.4 expm=887) PLATELET COUNT (BEAKER) (test byxv=100) 263 K/CU MM 150-450 MEAN PLATELET VOLUME (BEAKER) (test qqbx=842) 9.7 fL 9.4-12.3 NUCLEATED RED BLOOD CELLS (BEAKER) (test 0 /100 WBC 0-0 sutk=072) NEUTROPHILS RELATIVE PERCENT (BEAKER) (test 65 % rxip=113) LYMPHOCYTES RELATIVE PERCENT (BEAKER) (test 23 % addk=524) MONOCYTES RELATIVE PERCENT (BEAKER) (test 9 % qpal=032) EOSINOPHILS RELATIVE PERCENT (BEAKER) (test 2 % bdel=122) BASOPHILS RELATIVE PERCENT (BEAKER) (test 1 % mbll=609) NEUTROPHILS ABSOLUTE COUNT (BEAKER) (test 3.82 K/ L 1.56-6.13 ynza=210) LYMPHOCYTES ABSOLUTE COUNT (BEAKER) (test 1.33 K/ L 1.18-3.74 uptx=454) MONOCYTES ABSOLUTE COUNT (BEAKER) (test 0.50 K/ L 0.24-0.36 yhqp=510) EOSINOPHILS ABSOLUTE COUNT (BEAKER) (test 0.12 K/ L 0.04-0.36 kbcv=949) BASOPHILS ABSOLUTE COUNT (BEAKER) (test 0.05 K/ L 0.01-0.08 zpdk=082) IMMATURE GRANULOCYTES-RELATIVE PERCENT (BEAKER) 1 % 0-1 (test xuqk=4953) TROPONIN [id number] 21:11:00 Test Item Value Reference Range Comments TROPONIN I (BEAKER) (test epxc=655) 0.26 ng/mL 0.00-0.03 Effective 03/13/2014: Reference Range ChangeNew: 0.00-0.03 Previous 0.00- 0.15Troponin I (TnI) levels must be interpreted in the context of the presenting symptoms and the clinical findings. Elevated TnI levels indicate myocardial damage, but are not specific for ischemic heart disease. Elevated TnI levels are seen in patients with other cardiac conditions (including myocarditis and congestive heartfailure), and slight TnI elevations occur in patients with other conditions, including sepsis, renalfailure, acidosis, acute neurological disease, and persistent tachyarrhythmia.CREATINE KINASE (CK), TOTAL AND [id number] 21:06:00 Test Item Value Reference Range Comments CREATINE KINASE TOTAL (BEAKER) (test ugrl=836) 76 U/L 29-200 CREATINE KINASE-MB (BEAKER) (test vbqg=197) 2.7 ng/mL 0.0-6.6 CREATINE KINASE-MB INDEX (BEAKER) (test rhnc=659) 3.6 % Effective 03/13/2014: CK-MB Reference Range ChangeNew: 0.0-6.6 Previous: 0.0- 4.9CK-MB Reference Range:<6.7 Normal6.7-10.0 Borderline>10.0 Abnormal
[2018-09-27 18:13] VITALS: BMI 24.7
[2018-09-27 18:30] LABS: Absolute Lymphocytes (CBC) 1.5 K/uL (0.7-4.9); Absolute Monocytes 0.5 K/uL (0.1-1.3); Absolute Neutrophil 5.8 K/uL (1.8-8.0); Basophils % 1.2 % (0-1.3); Eosinophils % 1.6 % (0-4.4); Hematocrit 43.1 % (36.0-45.0); Lymphocytes % 18.2 % (15.3-44.8); MPV 7.7 fL (7.6-11.3); Monocytes % 6.7 % (3.3-12.3); RBC Red Blood Cell Count 4.72 M/uL (3.86-4.86)
[2018-09-27 18:33] LABS: Protime INR 0.98
--- NOTE | 2018-09-27 18:40 | RAD REPORT ---
EXAM DESCRIPTION: RAD - Chest Single View - 09/27/2018 6:32 pm CLINICAL HISTORY: n/v Chest pain. COMPARISON: Chest Single View dated 12/26/2016; Chest Pa And Lat (2 Views) dated 07/29/2015; CHEST SINGL E VIEW dated 06/14/2014; CHEST SINGLE VIEW dated 11/23/2012 FINDINGS: Portable technique limits examination quality. The lungs are grossly clear. The heart is normal in size. No displaced fractures. IMPRESSION: No acute intrathoracic process suspected.
[2018-09-27] MEDS ORDERED: ONDANSETRON 4 MG (ODT) TAB PO PRN (19:00)
[2018-09-27] MEDS ORDERED: POLYETHYL GLY 3350 17 GM/DOSE PO PRN (19:00)
[2018-09-27] MEDS ORDERED: DIPHENHYDRAMINE 25 MG TAB/CAP PO PRN (19:00)
[2018-09-27] MEDS ORDERED: ACETAMINOPHEN 325 MG TABLET PO PRN (19:00)
[2018-09-27] MEDS ORDERED: ONDANSETRON 4 MG/2 ML VIAL IV PRN (19:00)
[2018-09-27] MEDS ORDERED: LOPERAMIDE HCL 2 MG CAPSULE PO PRN (19:00)
[2018-09-27] MEDS ORDERED: NACHLORIDE 0.45% 1,000 ML IV SCH (19:00)
[2018-09-27] MEDS ORDERED: PNEUMOCOCCAL VACCINE 0.5 ML IMVAC ONE (19:00)
[2018-09-27 19:16] LABS: Albumin 3.8 g/dL (3.4-5.0); Bilirubin Direct 0.1 mg/dL (0-0.2); Bilirubin Total 0.6 mg/dL (0.2-1.0); Magnesium 1.9 mg/dL (1.8-2.4); Phosphorus 2.8 mg/dL (2.5-4.9); Potassium 3.9 mmol/L (3.5-5.1); Protein, Total 7.6 g/dL (6.4-8.2); Thyroid Stimulating Hormone 0.767 uIU/mL (0.360-3.740)
[2018-09-27] MEDS: clonazePAM 0.5 MG TAB PO SCH (20:15)
[2018-09-27] MEDS: ENOXAPARIN 40 MG/0.4 ML SQ SCH (20:15)
[2018-09-27] MEDS: MECLIZINE HCL 12.5 MG TAB PO SCH (20:15)
[2018-09-27] MEDS: cloNIDine HCl 0.1 MG TAB PO PRN ×2 (20:16→22:13)
--- NOTE | 2018-09-27 22:32 | RAD REPORT ---
EXAM DESCRIPTION: MRI - MRA Head Wo Cont - 09/27/2018 9:25 pm CLINICAL HISTORY: dizziness,not able to walk Headache, dizziness, CVA symptomology. COMPARISON: HEAD BRAIN W O CONTRAST dated 12/08/2014HEAD BRAIN W O CONTRAST dated 12/08/2014; Brain W/ Wo Cont dated 09/27/2018 FINDINGS: 3D noncontrast [id number]-fpxoei MR angiography of the [place] was performed. No aneurysm, flow-limiting stenosis or vascular malformation is seen. Forward flow seen in codominant vertebral arteries. The visualized dural venous sinuses appear patent. IMPRESSION: No significant flow abnormality of the [place] is identified.
--- NOTE | 2018-09-27 22:33 | RAD REPORT ---
EXAM DESCRIPTION: MRI - Brain W/Wo Cont - 09/27/2018 9:25 pm CLINICAL HISTORY: . Headache, drowsiness, CVA symptomology. COMPARISON: MRA Head Wo Cont dated 09/27/2018 TECHNIQUE: Multi-sequence, multiplanar MR imaging of the brain was performed with contrast. FINDINGS: No intracranial hemorrhage, hydrocephalus, or extra-axial fluid collection.Mild areas of T 2 and FLAIR hyperintensity in the periventricular white matter appear chronic in etiology likely repr esenting chronic microvascular ischemic changes. No edema or shift of midline structures. No intracra nial mass. DWI is negative for acute CVA. The midline structures are normally formed. The paranasal sinuses are clear except for a small mucous retention cyst in the right maxillary antrum. Small amount of left mastoid fluid. Post-contrast images show no abnormal enhancement to suggest tumor or infection. IMPRESSION: Negative for acute CVA or other acute intracranial process. Small amount of left mastoid fluid. No pathologic post-contrast enhancement suspected.
--- NOTE | 2018-09-27 22:34 | RAD REPORT ---
EXAM DESCRIPTION: MRI - MRA Neck W/Wo Cont - 09/27/2018 9:25 pm CLINICAL HISTORY: . Headache, drowsiness, TIA symptomology. COMPARISON: No comparisons FINDINGS: Contrast enhance 2D [id number] MR angiography of the neck vessels was performed. A left aortic arch is present. Normal branching pattern of the great vessels is seen. Both common carotid arteries and subclavian arteries appear widely patent. No significant internal carotid artery stenosis seen. Antegrade flow is seen codominant vertebral art eries. IMPRESSION: No significant flow abnormality of the neck vessels.
[2018-09-27 22:47] LABS: MPV 8.1 fL (7.6-11.3)
[2018-09-27 22:58] LABS: Platelet Estimate ADEQ
[2018-09-28] MEDS ORDERED: LEVOTHYROXINE SOD 0.075 MG TAB PO SCH (06:00)
[2018-09-28 06:20] LABS: Absolute Lymphocytes (CBC) 1.9 K/uL (0.7-4.9); Absolute Monocytes 0.5 K/uL (0.1-1.3); Absolute Neutrophil 2.9 K/uL (1.8-8.0); Basophils % 0.8 % (0-1.3); Eosinophils % 2.5 % (0-4.4); Hematocrit 41.4 % (36.0-45.0); MPV 7.7 fL (7.6-11.3); Monocytes % 8.2 % (3.3-12.3); RBC Red Blood Cell Count 4.52 M/uL (3.86-4.86)
[2018-09-28 06:25] LABS: Magnesium 2.1 mg/dL (1.8-2.4); Potassium 3.7 mmol/L (3.5-5.1)
[2018-09-28] MEDS ORDERED: CLOPIDOGREL 75 MG TABLET PO SCH (09:00)
[2018-09-28] MEDS ORDERED: DOCOSAHEXANOIC AC/EPA 1000 MG PO SCH (09:00)
[2018-09-28] MEDS ORDERED: HOME MED 1 EA UNK (Magnesium Oxide [Magnesium] 500 MG) PO SCH (09:00)
[2018-09-28] MEDS ORDERED: METOPROLOL XL 50 MG TAB PO SCH (09:00)
[2018-09-28] MEDS: clonazePAM 0.5 MG TAB PO SCH (09:44)
[2018-09-28] MEDS: MECLIZINE HCL 12.5 MG TAB PO SCH ×2 (09:45→13:22)
[2018-09-28] MEDS: ENOXAPARIN 40 MG/0.4 ML SQ SCH (09:45)
[2018-09-28 12:00] VITALS: O2SAT 95
[2018-09-28 13:33] VITALS: BP 144/74; TEMP 98.4
--- NOTE | 2018-09-28 21:49 | P.DS ---
Admission Date: 09/27/18 Discharge Date: 09/28/18 Disposition: ROUTINE DISCHARGE Discharge Condition: FAIR Hospital Course: SAVANNA CAME TO OFFICE , NOT BEING ABLE TO WALK, WITH NAUSEA, BP BEINGVERY HIGH AT 220 SYSTOLIC. SHE IMPROVED WITH CLONIDINE PO, KLONOPIN PO BID I SEE SHE HAS SEVERE ANXIETY. SHE IS STABLE TO GO HOME. I AM GIVING HER TWO NEW MEDS FOR CONTROL OF BP AND ANXIETY. SHE GOEST ODR NASSER FOR A FIB. Vital Signs/Physical Exam: Temp Pulse Resp BP Pulse Ox 98.4 F 74 18 144/74 H 95 09/28/18 12:00 09/28/18 12:00 09/28/18 12:00 09/28/18 12:00 09/28/18 12:00 General: Alert, In no apparent distress HEENT: Atraumatic, PERRLA, EOMI Neck: Supple, JVD not distended Respiratory: Clear to auscultation bilaterally, Normal air movement Cardiovascular: Regular rate/rhythm, Normal S1 S2 Gastrointestinal: Normal bowel sounds, No tenderness Musculoskeletal: No tenderness Integumentary: No rashes Neurological: Normal speech, Normal tone, Normal affect Lymphatics: No axilla or inguinal lymphadenopathy Laboratory Data at Discharge: WBC 5.5 K/uL (4.3-10.9) D 09/28/18 05:50 Hgb 14.1 g/dL (12.0-15.0) 09/28/18 05:50 Hct 41.4 % (36.0-45.0) 09/28/18 05:50 Plt Count 213 K/uL (152-406) 09/28/18 05:50 PT 11.6 SECONDS (9.5-12.5) 09/27/18 18:12 INR 0.98 09/27/18 18:12 APTT 31.0 SECONDS (24.3-36.9) 09/27/18 18:12 Sodium 139 mmol/L (136-145) 09/28/18 05:50 Potassium 3.7 mmol/L (3.5-5.1) 09/28/18 05:50 BUN 9 mg/dL (7-18) 09/28/18 05:50 Creatinine 0.70 mg/dL (0.55-1.3) 09/28/18 05:50 Glucose 98 mg/dL (74-106) 09/28/18 05:50 Phosphorus 2.8 mg/dL (2.5-4.9) 09/27/18 18:12 Magnesium 2.1 mg/dL (1.8-2.4) 09/28/18 05:50 Total Bilirubin 0.6 mg/dL (0.2-1.0) 09/27/18 18:12 AST 18 U/L (15-37) 09/27/18 18:12 ALT 22 U/L (12-78) 09/27/18 18:12 Alkaline Phosphatase 71 U/L (45-117) 09/27/18 18:12 Home Medications: Cholecalciferol (Vitamin D3) [Vitamin D3] 5,000 unit PO DAILY 09/27/18 Clopidogrel Bisulfate [Plavix*] 75 mg PO DAILY 09/27/18 Docosahexanoic AC/Epa [Fish Oil 1,000 MG CAP] 1 cap PO BID 09/27/18 Estradiol [Estrace] 1 mg PO DAILY 09/27/18 L.acidoph,Paracasei, B.lactis [Probiotic] 1 each PO DAILY 09/27/18 Levothyroxine Sodium 75 mcg PO [id number] 09/27/18 Magnesium Oxide [Magnesium] 500 mg PO DAILY 09/27/18 Metoprolol Succinate [Toprol Xl*] 100 mg PO BID 09/27/18 Pantoprazole Sodium [Protonix] 40 mg PO [id number] 09/27/18 Telmisartan/Amlodipine [Telmisartan-Amlodipine 40-5 mg] 1 each PO DAILY #90 tablet 09/28/18 clonazePAM [Klonopin*] 0.5 mg PO BID #60 tab 09/28/18 New Medications: clonazePAM [Klonopin*] 0.5 mg PO BID #60 tab Telmisartan/Amlodipine [Telmisartan-Amlodipine 40-5 mg] 1 each PO DAILY #90 tablet
== END 2018-09-28 14:20 | disposition home or self-care (01) ==
LOC: 4TH 17:29
PROVIDERS: ADMIT Internal Medicine; ATTEND Internal Medicine
DX: I10 Essential (primary) hypertension (principal); E53.8 Deficiency of other specified B group vitamins; I48.91 Unspecified atrial fibrillation; F33.2 Major depressive disorder, recurrent severe without psychotic features; R11.0 Nausea; Z91.81 History of falling; Z79.890 Hormone replacement therapy; Z79.02 Long term (current) use of antithrombotics/antiplatelets; Z79.899 Other long term (current) drug therapy; Z85.528 Personal history of other malignant neoplasm of kidney
CPT/HCPCS: 85025 ×2; 80048 ×2; 36415 ×2; 83735 ×2; 84100; 85049; 85610; 85379; 80076; 85730; 84443; 82607; 82306; 83880; 71045; 70553; 70544; 70549; A9577; G0379; J1650 ×2; G0378

== ENCOUNTER 2018-12-28 22:07 | Emergency (ER) | payer OTHER ==
--- OUTSIDE RECORDS SUMMARY | 2018-12-28 22:09 | XMS REPORT | Clinical Summary ---
:1945 Author Organization [facility] Address [address] [place] [address] Care Team Providers Name Role Phone Lázaro [...] 0 Active acid/epa (FISH OIL daily. ORAL) meclizine (ANTIVERT) Take 25 mg by 0 [...] Mckeon MD 01/25/2018 Hospital Encounter Procedural Cristy Aguirre Paroxysmal atrial Cardiology MD Giovana fibrillation (HCC) 01/19/2018 Transcribe Orders Procedural Cristy Aguirre Paroxysmal atrial Cardiology MD Giovana fibrillation (Primary Dx) after 12/27/2017 Family History Medical History Relation Name Comments [...] Vital Signs Vital Sign Reading Time Taken Comments Blood Pressure 149/84 08/09/2018 11:35 AM CDT [...] Last Done Comments BREAST CANCER SCREENING 09/05/1993 COLONOSCOPY SCREENING 09/05/1993 SHINGLES VACCINES (#1) 09/05/1993 65+ PNEUMOCOCCAL VACCINE (1 of 2 - PCV13) 09/05/2008 INFLUENZA VACCINE 11/24/2018 Implants Implanted Type Area Combine Operator Device Shelf Model / Identifier Expiration Serial / Date Lot Device Closure Watchman Susie 24mm - [id number] Cardiovascular N/A: [place] 06/28/2020 [id number] / Implanted: 12/17/2017 at [facility] (Quantity not on file) Implants N/A SCIENTIFIC / JEANINE [id number] Implantable Loop Recorder-07/17/2014 Implantable Loop Implanted: 07/17/2014 (Quantity not on file) Recorder Description:In JUNE or July 2014 Reveal Linq Anvil Worker-01/02/2015 Implanted: 01/02/2015 (Quantity not on file) Procedures Procedure Name Priority Date/Time Associated Diagnosis Comments CT AN ELECTIVE Routine 08/09/2018 10:32 AM SUPRAGLOTTIC AIRWAY CDT Procedure Note - Renetta Chang - 08/09/2018 10:32 AM CDT Airway Performed by: Renetta Chang Authorized by: Donte Das, Location: OR Urgency: Elective Difficult Airway: No Performed by: resident/APPOINTMENT CLERK/AA Preoxygenated with 100% O2: Yes Mask Ventilation: Not attempted Final Airway Type: Supraglottic airway Final LMA: I-Gel LMA Size: 4 Number of Attempts at Approach: 1 CYSTOSCOPY, WITH BOTULINUM TOXIN 08/09/2018 10:22 AM CDT OAB (overactive bladder) INJECTION Case [...] are in DOPPLER COLORFLOW the results section. after 12/27/2017 Results Estimated GFR (08/09/2018 10:00 AM CDT) Estimated GFR 64 mL/min/1.73 [facility] Comment: HOSPITAL CatergoryUnitsInterpretation G1 >=90 Normal or high G2 60-89Mildly decreased A1f08-03Wbvgxy to moderately decreased P5u08-82Lbidrezqqv to severely decreased G4 15-29Severely decreased G5 <15Kidney failure The eGFR was calculated using the Chronic Kidney Disease Epidemiology Collaboration (CKD-EPI) equation. Interpretation is based on recommendations of the National Kidney Foundation-Kidney Disease Outcomes Quality Initiative (NKF-KDOQI) published in 2014. Specimen Plasma specimen Performing Organization Address City/State/Zipcode Phone Number [facility] DEPARTMENT OF PATHOLOGY AND [address] [place] [phone] GENOMIC MEDICINE [address] [address] CBC with platelet and differential (08/09/2018 10:00 AM CDT) WBC 7.47 4.50 - 11.00 [facility] k/uL HOSPITAL RBC 4.60 4.20 - 5.50 [facility] m/uL HOSPITAL HGB 14.2 12.0 - 16.0 [facility] g/dL HOSPITAL HCT 42.1 37.0 - 47.0 % [facility] MCV 91.5 82.0 - 100.0 [facility] MCH 30.9 27.0 - 34.0 pg [facility] MCHC 33.7 31.0 - 37.0 [facility] g/dL HOSPITAL RDW - SD 42.6 37.0 - 55.0 fL [facility] MPV 9.5 8.8 - 13.2 [facility] Platelet count 246 150 - 400 k/uL [facility] Nucleated RBC 0.00 /100 WBC [facility] Neutrophils 63.5 39.0 - 69.0 % [facility] Lymphocytes 23.8 (L) 25.0 - 45.0 % [facility] Monocytes 8.4 0.0 - 10.0 % [facility] Eosinophils 3.1 0.0 - 5.0 % [facility] Basophils 0.9 0.0 - 1.0 % [facility] Immature granulocytes 0.3Comment: 0.0 - 1.0 % [facility] granulocytes" (promyelocytes , myelocytes, metamyelocytes ) Specimen Blood Performing Organization Address City/State/Zipcode Phone Number [facility] DEPARTMENT OF PATHOLOGY AND [address] [place] [phone] GENOMIC MEDICINE [address] [address] Basic metabolic panel (08/09/2018 10:00 AM CDT) Sodium 140 135 - 148 mEq/L [facility] Potassium 4.8 3.5 - 5.0 mEq/L [facility] Chloride 101 98 - 112 mEq/L [facility] CO2 24 24 - 31 mEq/L [facility] Anion gap 15@ANIO 7 - 15 mEq/L [facility] BUN 11 8 - 23 mg/dL [facility] Creatinine 0.88 0.50 - 0.90 mg/dL [facility] Glucose 109 (H) 65 - 99 mg/dL [facility] Calcium 9.5 8.8 - 10.2 mg/dL [facility] Specimen Plasma specimen Performing Organization Address City/State/Zipcode Phone Number [facility] DEPARTMENT OF PATHOLOGY AND [address] [place] [address] GENOMIC MEDICINE [address] [address] ECG 12 lead (08/09/2018 9:51 AM CDT) Ventricular rate 82 [facility] Atrial rate 288 [facility] QRSD interval 80 [facility] QT interval 388 [facility] QTC interval 453 [facility] QRS axis 1 78 [facility] T wave axis 63 [facility] EKG impression Atrial [facility] MUSE fibrillation-Abnormal ECG-In automated comparison with ECG of 17-DEC-2017 09:03,-No significant change was found- Specimen Narrative Performed At Performing Organization Address City/[facility] Phone Number [address] [address] Urinalysis screen and microscopy, with reflex to culture (08/09/2018 9:45 AM CDT) Specimen site Clean catch [facility] Color, UA Straw [facility] Appearance, UA Clear [facility] Specific gravity, UA 1.014 1.001 - 1.035 [facility] pH, UA 7.0 5.0 - 8.5 [facility] Protein, UA Negative Negative [facility] Glucose, UA Negative Negative [facility] Ketones, UA Negative Negative [facility] Bilirubin, UA Negative Negative [facility] Blood, UA Negative Negative [facility] Nitrite, UA Negative Negative [facility] Urobilinogen, UA <2.0 <2.0 [facility] Leukocyte esterase, Negative Negative [facility] Epithelial cells, UA <1 /HPF [facility] WBC, UA None seen 0 - 4 /HPF [facility] RBC, UA 1 0 - 5 /HPF [facility] Bacteria, UA None seen None seen [facility] Yeast, UA None seen [facility] Yeast with None seen [facility] pseudohyphae, [facility] Hyaline casts, UA 1 /LPF [facility] Specimen Urine Performing Organization Address City/State/Zipcode Phone Number [facility] DEPARTMENT OF PATHOLOGY AND [address] [place] [address] Urine culture (08/09/2018 9:45 AM CDT) Urine culture SEE COMMENTComment: [facility] Bacteriuria screen [facility] negative. Specimen Performing Organization Address City/State/Zipcode Phone Number [facility] DEPARTMENT OF PATHOLOGY AND [address] [place] [address] Echocardiogram transesophageal (01/25/2018 2:25 PM CDT) Specimen Narrative Performed At [facility] Transesophageal Echo Report [address]ac[address], [place] [address] Pat.Name:LADY RAINES Pat.ID:[id number] .Date: 01/25/2018 Refer.MD:CRISTY AGUIRRE MD Exam Time: 1:29:00 PMStudy Type:MIGUEL Height:66inWeight: 155lb BSA: 1.8 e4FLXWmz:1945,72Y Sex: FEMALEBP:160/86 HR:85 bpmSonogrphr: Sean Elizondo MD Pat. Stat.:OutpatientStudy Status:Final Echo Event ID:[id number] Order ID:[id number] Reason for Study:Atrial fibrillation, S/P Watchman Procedures:Transesophageal Echo with Colorflow Doppler Race: SUMMARY: LV EF is normal. Estimated EF is 60-64%. Watchman device is well seated in LA appendage without octavia-device leak. FINDINGS: MIGUEL:The attending production superintendent performed the MIGUEL procedure and waspresent for [...] SedationASA Class: 3 Physician: Rupesh Odell MD Laminating Machine Operator Helper: Sean Elizondo MD Pre TEEBP HR Post MIGUEL BP HR 160/86 94838/78 89 Meds:Viscous xylocaine, Cetacaine spray to oropharynx, Versed 3 mg IV, Fentanyl 75 mcg IV Complications: None Condition: Stable Signed 01/25/2018 05:10 PM Rupesh Odell MD Procedure Note Interface, Radiology Results In - 01/25/2018 5:11 PM CDT Transesophageal Echo Report [address], [place], [place] [address] Pat.Name: LADY RAINES Pat.ID: [id number] St.Date: 01/25/2018 Refer.MD: CRISTY AGUIRRE MD Exam Time: 1:29:00 PM Study Type:MIGUEL Height: 66in Weight: 155lb BSA: 1.8 m2 Age: 3 1945,72Y Sex: FEMALE BP: 160/86 HR: 85 bpm Sonogrphr: Sean Elizondo MD [facility]. Stat.:Outpatient Study Status:Final Echo Event ID:[id number] Order ID: [id number] Reason for Study:Atrial fibrillation, S/P Watchman Procedures:Transesophageal Echo with Colorflow Doppler Race: SUMMARY: LV EF is normal. Estimated EF is 60-64%. Watchman device is well seated in [place] appendage without octavia-device leak. FINDINGS: MIGUEL: The attending production superintendent performed the MIGUEL procedure and was present [...] ASA Class: 3 Physician: Rupesh Odell MD Laminating Machine Operator Helper: Sean Elizondo MD Pre MIGUEL BP HR Post MIGUEL BP HR 160/86 85 144/78 89 Meds: Viscous xylocaine, Cetacaine spray to oropharynx, Versed 3 mg IV, Fentanyl 75 mcg IV Complications: None Condition: Stable Signed 01/25/2018 05:10 PM Rupesh Odell MD Performing Organization Address City/State/[facility] Cent[facility] Phone Number [facility] [address] [place] [address] after 12/27/2017 Insurance Payer Benefit Plan / Subscriber ID Effective Dates Phone Address Type Group MEDICARE MEDICARE xxxxxxxxxxx 2008-Present Medicare [facility] xxxxxxxxxx 2013-Present [employer] Advance Directives For more information, please contact: [phone] Type Date Recorded Patient Tattoo Artist Explanation Advance Directives, Living Will 02/25/2017 11:32 AM and Medical Power of Auto Body Service Mechanic Code Status Date Activated Date Inactivated Comments Full Code 04/14/2017 4:02 PM 04/15/2017 4:12 PM Code Status decision reached by: Patient
--- OUTSIDE RECORDS SUMMARY | 2018-12-28 22:10 | XMS REPORT | Clinical Summary ---
:1945 Author Organization [facility] [place] [facility] Address [address] [place] [address] Care Team Providers Name Role Phone Lázaro Butterfield Todd Primary Care Provider Allergies Active Allergy Reactions Severity Noted Date Comments Codeine Shortness Of Breath High 12/26/2016 Hydrocodone-Acetaminophen Shortness Of Breath High 12/26/2016 Promethazine-Dm Nausea And Vomiting 12/26/2016 Otacnqm-Yls-Ptn Reductase Inhibitors Rash Low 12/26/2016 Tramadol Nausea [...] Not on file Results Not on fileafter 12/27/2017 Insurance Payer Benefit Plan / Group Subscriber ID Type Phone Address MEDICARE MEDICARE A B xxxxxxxxxx Medicare [facility] GENERIC MEDICARE x[facility]x [facility]/INDIVIDUAL SUPPLEMENT
--- OUTSIDE RECORDS SUMMARY | 2018-12-28 22:10 | XMS REPORT ---
:1945 [facility] Address [address] [place] [address] Care Team Providers Name Role Phone LENARD [...] 09:54:00 Patient Name: SAVANNA CASTILLO Unit No: [id number] EXAMS: CPT CODE: [id number] MRI L-SPINE W/O CONT 00712 TECHNIQUE: Multiplanar, multisequence MRI examination performed of [...] Reported and signed by: Josafat Lux M.D. [facility] NAME: SAVANNA CASTILLO [address] [facility] PHYS: Justo Negron MD : 1945 AGE: 72 SEX: F [place], [place] [address] LOC: Y.MRI PHONE #: [phone] EXAM DATE: 06/13/2018 STATUS: DEP CLI FAX #: [phone] RAD #: [id number] D/C DT PAGE 1 Signed Report (CONTINUED) Patient Name: SAVANNA CASTILLO Unit No: [id number] EXAMS: CPT CODE: [id number] MRI L-SPINE W/O CONT 18451 <Continued> CC: Lázaro Butterfield MD; Kris Adames M.D. Technologist: BALBINA KIM MRI Transcribed D/ (0954) Marshal [facility] NAME: SAVANNA CASTILLO [address] [facility] PHYS: Justo Negron MD : 1945 AGE: 72 SEX: F [place] [address] LOC: Y.MRI PHONE #: [phone] EXAM DATE: 06/13/2018 STATUS: DEP CLI FAX #: [phone] RAD #: [id number] D/C DT PAGE 2 Signed Report Patient Name: SAVANNA CASTILLO Unit No: [id number] EXAMS: CPT CODE: [id number] MRI L-SPINE W/O CONT 38695 <Continued> Orig Print D/T: S: 06/14/2018 (0957) [facility] NAME: SAVANNA CASTILLO [address] [facility] PHYS: Justo Negron MD : 1945 AGE: 72 SEX: F [place] [address] LOC: Y.MRI PHONE #: [phone] EXAM DATE: 06/13/2018 STATUS: DEP CLI FAX #: [phone] RAD #: [id number] D/C DT PAGE 3 Signed Report - MRI LW JNT W/O CONT LT 2018-06-04 07:09:00 Patient Name: SAVANNA CASTILLO Unit No: [id number] EXAMS: CPT CODE: [id number] MRI LW JNT W/[place] [address] MRI OF THE PELVIS AND HIPS WITH [...] M Lew RT(R) Transcribed D/ (708) Eric.RENO [facility] NAME: SAVANNA CASTILLO [address] [facility] PHYS: GOMMU. - Aguila Servin : 1945 AGE: 72 SEX: F [place] [address] LOC: Y.MRI PHONE #: [phone] EXAM DATE: 06/03/2018 STATUS: DEP CLI FAX #: [phone] RAD #: [id number] D/C DT PAGE 1 Signed Report Patient Name: SAVANNA CASTILLO Unit No: [id number] EXAMS: CPT CODE: [id number] MRI LW JNT W/[place] [address] <Continued> Orig Print D/T: S: 06/04/2018 (12) [facility] NAME: SAVANNA CASTILLO [address] [facility] PHYS: GOMMU. - DaneAguila valerio Ray : 1945 AGE: 72 SEX: F [place] [address] LOC: Y.MRI PHONE #: [phone] EXAM DATE: 06/03/2018 STATUS: DEP WISAM FAX #: [phone] RAD #: [id number] D/C DT PAGE 2 Signed Report MAGNESIUM 2016-12-28 06:33:00 Test Item Value Reference Range Comments MAGNESIUM (BEAKER) (test jhga=599) 1.9 mg/dL 1.6-2.6 BASIC METABOLIC [id number] 06:33:00 Test Item Value Reference Range Comments SODIUM (BEAKER) (test 138 meq/L 136-145 olyi=129) POTASSIUM (BEAKER) (test 4.0 meq/L 3.5-5.1 wfkv=821) CHLORIDE (BEAKER) (test 105 meq/L 98-107 rjpo=432) CO2 (BEAKER) (test 24 meq/L 22-29 spjd=816) BLOOD UREA NITROGEN 10 mg/dL 7-21 (BEAKER) (test ovap=952) CREATININE (BEAKER) (test 0.88 mg/dL 0.57-1.25 itqb=629) GLUCOSE RANDOM (BEAKER) 98 mg/dL 70-105 (test djzf=612) CALCIUM (BEAKER) (test 9.1 mg/dL 8.4-10.2 yooz=766) EGFR (BEAKER) (test 63 mL/min/1.73 sq m ESTIMATED GFR IS NOT euhx=4917) ACCURATE CREATININE CLEARANCE IN PREDICTING GLOMERULAR FILTRATION RATE. ESTIMATED GFR IS NOT APPLICABLE FOR DIALYSIS PATIENTS. [id number] 06:33:00 Test Item Value Reference Range Comments AMYLASE (BEAKER) (test jvyz=384) 54 U/L 25-125 IRON, TIBC, % SAT. (WITHOUT FERRITIN)2016-12-28 06:23:00 Test Item Value Reference Range Comments IRON (BEAKER) (test athk=528) 30 ug/dL 40-160 TOTAL IRON BINDING CAPACITY (BEAKER) (test 316 ug/dL 250-450 kpys=455) IRON % SATURATION (2) (BEAKER) (test dotj=2062) 9 % 20-55 CBC W/PLT COUNT & AUTO [id number] 06:16:00 Test Item Value Reference Range Comments WHITE BLOOD CELL COUNT (BEAKER) (test smuf=638) 6.2 K/ L 3.5-10.5 RED BLOOD CELL COUNT (BEAKER) (test ihsx=779) 3.83 M/ L 3.93-5.22 HEMOGLOBIN (BEAKER) (test hmyn=667) 9.7 GM/DL 11.2-15.7 HEMATOCRIT (BEAKER) (test snvx=648) 31.1 % 34.1-44.9 MEAN CORPUSCULAR VOLUME (BEAKER) (test uoju=255) 81.2 fL 79.4-94.8 MEAN CORPUSCULAR HEMOGLOBIN (BEAKER) (test 25.3 pg 25.6-32.2 crlo=266) MEAN CORPUSCULAR HEMOGLOBIN CONC (BEAKER) (test 31.2 GM/DL 32.2-35.5 nqnb=065) RED CELL DISTRIBUTION WIDTH (BEAKER) (test 16.6 % 11.7-14.4 hzpp=260) PLATELET COUNT (BEAKER) (test uxws=250) 294 K/CU MM 150-450 MEAN PLATELET VOLUME (BEAKER) (test bumq=749) 9.4 fL 9.4-12.3 NUCLEATED RED BLOOD CELLS (BEAKER) (test 0 /100 WBC 0-0 ukxb=162) NEUTROPHILS RELATIVE PERCENT (BEAKER) (test 61 % xoxr=566) LYMPHOCYTES RELATIVE PERCENT (BEAKER) (test 27 % hcnt=656) MONOCYTES RELATIVE PERCENT (BEAKER) (test 10 % ceqk=861) EOSINOPHILS RELATIVE PERCENT (BEAKER) (test 2 % nbmz=936) BASOPHILS RELATIVE PERCENT (BEAKER) (test 1 % hxtj=093) NEUTROPHILS ABSOLUTE COUNT (BEAKER) (test 3.77 K/ L 1.56-6.13 ajee=393) LYMPHOCYTES ABSOLUTE COUNT (BEAKER) (test 1.64 K/ L 1.18-3.74 zzhr=647) MONOCYTES ABSOLUTE COUNT (BEAKER) (test 0.62 K/ L 0.24-0.36 quyy=583) EOSINOPHILS ABSOLUTE COUNT (BEAKER) (test 0.10 K/ L 0.04-0.36 drax=128) BASOPHILS ABSOLUTE COUNT (BEAKER) (test 0.03 K/ L 0.01-0.08 fagk=843) IMMATURE GRANULOCYTES-RELATIVE PERCENT (BEAKER) 0 % 0-1 (test fguh=7901) [id number] 14:25:00 Test Item Value Reference Range Comments FERRITIN (BEAKER) (test pakn=990) 28 ng/mL 5-275 Effective 03/13/2014: Reference Range ChangeNew: Male 5-275 Previous: Male 22-322 Female 5-275 Female 10-291TSH/FREE T4 IF [id number] 14:25:00 Test Item Value Reference Range Comments THYROID STIMULATING HORMONE (BEAKER) (test 1.47 uIU/mL 0.35-4.94 panr=515) HEPATIC FUNCTION [id number] 14:04:00 Test Item Value Reference Range Comments TOTAL PROTEIN (BEAKER) (test 6.5 gm/dL 6.0-8.3 Specimen slightly hemolyzed elne=877) ALBUMIN (BEAKER) (test 3.6 g/dL 3.5-5.0 Specimen slightly hemolyzed dxlm=1004) BILIRUBIN TOTAL (BEAKER) (test 0.5 mg/dL 0.2-1.2 Specimen slightly hemolyzed crka=428) BILIRUBIN DIRECT (BEAKER) (test 0.2 mg/dL 0.1-0.5 Specimen slightly hemolyzed cqke=703) ALKALINE PHOSPHATASE (BEAKER) 56 U/L 40-150 (test lrkx=941) AST (SGOT) (BEAKER) (test 33 U/L 5-34 Specimen slightly hemolyzed ivir=179) ALT (SGPT) (BEAKER) (test 37 U/L 6-55 Specimen slightly hemolyzed sibo=921) RETICULOCYTE [id number] 13:37:00 Test Item Value Reference Range Comments RETICULOCYTE COUNT PCT (BEAKER) (test vgrl=266) 1.7 % 0.5-1.7 HEMOGLOBIN [id number] 10:31:00 Test Item Value Reference Range Comments HEMOGLOBIN A1C (BEAKER) (test pjri=529) 7.0 % 4.3-6.1 TROPONIN [id number] 05:43:00 Test Item Value Reference Range Comments TROPONIN I (BEAKER) (test mwhe=775) 0.19 ng/mL 0.00-0.03 Effective 03/13/2014: Reference Range [...] renalfailure, acidosis, acute neurological disease, and persistent tachyarrhythmia.[id number] 05:34: 00 Test Item Value Reference Range Comments MAGNESIUM (BEAKER) (test apzn=010) 1.7 mg/dL 1.6-2.6 BASIC METABOLIC [id number] 05:34:00 Test Item Value Reference Range Comments SODIUM (BEAKER) (test 138 meq/L 136-145 lgvk=545) POTASSIUM (BEAKER) (test 4.0 meq/L 3.5-5.1 fpra=980) CHLORIDE (BEAKER) (test 104 meq/L 98-107 mkbf=645) CO2 (BEAKER) (test 24 meq/L 22-29 ubpi=166) BLOOD UREA NITROGEN 9 mg/dL 7-21 (BEAKER) (test poih=716) CREATININE (BEAKER) (test 0.81 mg/dL 0.57-1.25 bcfs=891) GLUCOSE RANDOM (BEAKER) 106 mg/dL 70-105 (test tyqa=668) CALCIUM (BEAKER) (test 8.8 mg/dL 8.4-10.2 urxb=812) EGFR (BEAKER) (test 69 mL/min/1.73 sq m ESTIMATED GFR IS NOT nwkf=4657) ACCURATE CREATININE CLEARANCE IN PREDICTING GLOMERULAR FILTRATION RATE. ESTIMATED GFR IS NOT APPLICABLE FOR DIALYSIS PATIENTS. LIPID [id number] 05:34:00 Test Item Value Reference Range Comments TRIGLYCERIDES (BEAKER) (test snzc=300) 108 mg/dL CHOLESTEROL (BEAKER) (test ocpf=214) 266 mg/dL HDL CHOLESTEROL (BEAKER) (test cotb=027) 65 mg/dL LDL CHOLESTEROL CALCULATED (BEAKER) (test 179 mg/dL rlxx=251) Triglyceride Reference Range: Low Risk <150 Borderline 150- 199 High Risk 200-499 Very High Risk >=500Cholesterol Reference Range: Low Risk <200 Borderline 200-239 High Risk > 240HDL Cholesterol Reference Range: Low Risk >=60 High Risk <40LDL Cholesterol Reference Range: Optimal <100 Near Optimal 100-129 Borderline 130-159 High 160-189 Very High >=190CBC W/PLT COUNT & AUTO [id number] 05:33:00 Test Item Value Reference Range Comments WHITE BLOOD CELL COUNT (BEAKER) (test nfay=742) 5.9 K/ L 3.5-10.5 RED BLOOD CELL COUNT (BEAKER) (test wclu=782) 3.50 M/ L 3.93-5.22 HEMOGLOBIN (BEAKER) (test wgrn=966) 8.9 GM/DL 11.2-15.7 HEMATOCRIT (BEAKER) (test dbdn=250) 28.6 % 34.1-44.9 MEAN CORPUSCULAR VOLUME (BEAKER) (test xnhk=064) 81.7 fL 79.4-94.8 MEAN CORPUSCULAR HEMOGLOBIN (BEAKER) (test 25.4 pg 25.6-32.2 gpgr=698) MEAN CORPUSCULAR HEMOGLOBIN CONC (BEAKER) (test 31.1 GM/DL 32.2-35.5 zqum=802) RED CELL DISTRIBUTION WIDTH (BEAKER) (test 16.3 % 11.7-14.4 bloi=983) PLATELET COUNT (BEAKER) (test zmvq=329) 263 K/CU MM 150-450 MEAN PLATELET VOLUME (BEAKER) (test wstw=257) 9.7 fL 9.4-12.3 NUCLEATED RED BLOOD CELLS (BEAKER) (test 0 /100 WBC 0-0 qmab=575) NEUTROPHILS RELATIVE PERCENT (BEAKER) (test 65 % hvcg=880) LYMPHOCYTES RELATIVE PERCENT (BEAKER) (test 23 % dtro=816) MONOCYTES RELATIVE PERCENT (BEAKER) (test 9 % lzrw=580) EOSINOPHILS RELATIVE PERCENT (BEAKER) (test 2 % oocw=216) BASOPHILS RELATIVE PERCENT (BEAKER) (test 1 % fivy=662) NEUTROPHILS ABSOLUTE COUNT (BEAKER) (test 3.82 K/ L 1.56-6.13 ywdq=944) LYMPHOCYTES ABSOLUTE COUNT (BEAKER) (test 1.33 K/ L 1.18-3.74 zzyw=674) MONOCYTES ABSOLUTE COUNT (BEAKER) (test 0.50 K/ L 0.24-0.36 dayk=019) EOSINOPHILS ABSOLUTE COUNT (BEAKER) (test 0.12 K/ L 0.04-0.36 nnlv=376) BASOPHILS ABSOLUTE COUNT (BEAKER) (test 0.05 K/ L 0.01-0.08 yfgj=426) IMMATURE GRANULOCYTES-RELATIVE PERCENT (BEAKER) 1 % 0-1 (test ogsc=1610) TROPONIN [id number] 21:11:00 Test Item Value Reference Range Comments TROPONIN I (BEAKER) (test hjbt=623) 0.26 ng/mL 0.00-0.03 Effective 03/13/2014: Reference Range [...] and persistent tachyarrhythmia.CREATINE KINASE (CK), TOTAL AND [id number] 21:06:00 Test Item Value Reference Range Comments CREATINE KINASE TOTAL (BEAKER) (test iimj=834) 76 U/L 29-200 CREATINE KINASE-MB (BEAKER) (test nayy=708) 2.7 ng/mL 0.0-6.6 CREATINE KINASE-MB INDEX (BEAKER) (test jdcj=148) 3.6 % Effective 03/13/2014: CK-MB Reference Range ChangeNew: 0.0-6.6 Previous: 0.0- 4.9CK-MB Reference Range:<6.7 Normal6.7-10.0 Borderline>10.0 Abnormal
[2018-12-28 22:40] LABS: Absolute Lymphocytes (CBC) 2.4 K/uL (0.7-4.9); Basophils % 0.9 % (0-1.3); Hematocrit 40.3 % (36.0-45.0); Lymphocytes % 35.9 % (15.3-44.8); MPV 7.9 fL (7.6-11.3); RBC Red Blood Cell Count 4.43 M/uL (3.86-4.86)
[2018-12-28 22:49] LABS: Protime INR 0.94
[2018-12-28 22:56] LABS: Potassium 3.9 mmol/L (3.5-5.1)
[2018-12-28] MEDS ORDERED: METOPROLOL TARTRATE 5 MG/5 ML INJ IV ONE (23:27)
--- NOTE | 2018-12-28 23:28 | EDPHYS ---
Physician Documentation [facility] Name: Lady Raines Age: 73 yrs Sex: Female : 1945 Arrival Date: 12/28/2018 Time: 22:11 Bed 16 Private MD: ED Physician Asa Paz HPI: 12/28 22:43 This 73 yrs old Female presents to ER via Ambulatory with complaints of pkl Confusion, Altered Mental Status. 22:43 The patient presents with confusion. Onset: The symptoms/episode began/occurred just pkl prior to arrival, 2.5 hour(s) ago. Possible causes: CVA or TIA. Associated signs and symptoms: Pertinent positives: difficulty with her speech. 23:11 The patient has experienced similar episodes in the past, a few times. pkl Historical: - Allergies: 22:25 "zocar drugs"; lp1 22:25 Codeine; lp1 22:25 Hydrocodone-Acetaminophen; lp1 22:25 Phenergan; lp1 22:25 tramadol; lp1 - Home Meds: 22:25 Estradiol 0.1 mg once a day Oral 1 tab once daily [Active]; sotalol 80 mg Oral tab 0.5 lp1 tab daily [Active]; levothyroxine 50 mcg tab 1 tab once daily [Active]; aspirin 81 mg Oral TbEC 1 tab once daily [Active]; Acid Fig Caprifier (cimetidine) 200 mg Oral tab 1 tab once daily [Active]; clonazepam 0.5 mg Oral TbDL [Active]; amiodarone 200 mg Oral tab 1 tab once daily [Active]; clonidine HCl 0.1 mg Oral tab 1 tab 2 times per day [Active]; metoprolol tartrate 25 mg Oral tab 1 tab 2 times per day [Active]; - PMHx: 22:25 AFIB; Hyperlipidemia; Hypertension; reflux; lp1 - PSHx: 22:25 Hysterectomy; shoulder sx; Knee surgery; back sx; Cholecystectomy; Bladder suspension; lp1 - Immunization history:: Adult Immunizations up to date. - Ebola Screening: : No symptoms or risks identified at this time. ROS: 23:11 Eyes: Negative for injury, pain, redness, and discharge, ENT: Negative for injury, pkl pain, and discharge, Neck: Negative for injury, pain, and swelling, Cardiovascular: Negative for chest pain, palpitations, and edema, Respiratory: Negative for shortness of breath, cough, wheezing, and pleuritic chest pain, Abdomen/GI: Negative for abdominal pain, nausea, vomiting, diarrhea, and constipation, Back: Negative for injury and pain, : Negative for injury, bleeding, discharge, and swelling, MS/Extremity: Negative for injury and deformity, Skin: Negative for injury, rash, and discoloration. 23:11 Neuro: Positive for altered mental status, speech changes, visual changes. Exam: 23:11 Head/Face: Normocephalic, atraumatic. Eyes: Pupils equal round and reactive to light, pkl extra-ocular motions intact. Lids and lashes normal. Conjunctiva and sclera are non-icteric and not injected. Cornea within normal limits. Periorbital areas with no swelling, redness, or edema. ENT: Nares patent. No nasal discharge, no septal abnormalities noted. Tympanic membranes are normal and external auditory canals are clear. Oropharynx with no redness, swelling, or masses, exudates, or evidence of obstruction, uvula midline. Mucous membranes moist. Neck: Trachea midline, no thyromegaly or masses palpated, and no cervical lymphadenopathy. Supple, full range of motion without nuchal rigidity, or vertebral point tenderness. No Meningismus. Chest/axilla: Normal chest wall appearance and motion. Nontender with no deformity. No lesions are appreciated. Cardiovascular: Regular rate and rhythm with a normal S1 and S2. No gallops, murmurs, or rubs. Normal PMI, no JVD. No pulse deficits. Respiratory: Lungs have equal breath sounds bilaterally, clear to auscultation and percussion. No rales, rhonchi or wheezes noted. No increased work of breathing, no retractions or nasal flaring. Abdomen/GI: Soft, non-tender, with normal bowel sounds. No distension or tympany. No guarding or rebound. No evidence of tenderness throughout. Back: No spinal tenderness. No costovertebral tenderness. Full range of motion. Skin: Warm, dry with normal turgor. Normal color with no rashes, no lesions, and no evidence of cellulitis. MS/ Extremity: Pulses equal, no cyanosis. Neurovascular intact. Full, normal range of motion. 23:11 Neuro: Orientation: is normal, Mentation: appropriate for stated age, Cranial nerves: grossly normal, Cerebellar function: normal finger to nose testing, Motor: is normal, Sensation: is normal, Gait: is steady. Vital Signs: 22:10 BP 181 / 119; Pulse 80; Resp 18; Pulse Ox 99% on R/A; lp1 22:18 BP 182 / 104; Pulse 78; Resp 18; Pulse Ox 99% on R/A; lp1 22:47 Temp 98.7(O); Weight 71.2 kg (M); jb4 22:53 BP 160 / 87; Pulse 73; Resp 19; Pulse Ox 99% on R/A; 4 12/29 00:00 BP 181 / 102; Pulse 72; Resp 17; Pulse Ox 99% on R/A; jb4 00:15 BP 141 / 90; Pulse 80; Resp 17; Pulse Ox 98% on R/A; jb4 00:30 BP 110 / 75; Pulse 82; Resp 15; Pulse Ox 99% on R/A; jb4 01:00 BP 122 / 72; Pulse 85; Resp 15; Pulse Ox 98% on R/A; jb4 01:30 BP 135 / 76; Pulse 81; Resp 20; Pulse Ox 98% on R/A; jb4 02:00 BP 140 / 85; Pulse 87; Resp 21; Pulse Ox 98% on R/A; jb4 NIH Stroke Scale Scores: 12/28 22:29 NIHSS Score: 2 jb4 MDM: 22:29 Patient medically screened. [facility] 23:18 Data reviewed: vital signs, nurses notes, lab test result(s), EKG, radiologic studies, [facility] plain films. 23:20 Data reviewed: radiologic studies, CT scan. ED course: Talked to Dr. Berg ( [facility] Neurologist ) [facility]. Accepted transfer. Do not recommend thrombolytic due to improving speech.. 12/29 00:58 ED course: Talked to Dr. Berg and notified him on the lab. results. [facility] 12/28 22:31 Order name: Basic Metabolic Panel; Complete Time: 23:17 bb 12/28 22:31 Order name: CBC with Diff; Complete Time: 23:17 12/28 22:16 Order name: CT Stroke Brain w/o Contrast mw2 12/28 22:31 Order name: Protime (+inr); Complete Time: 23:17 bb 09/04 22:31 Order name: Ptt, Activated; Complete Time: 23:17 12/29 00:27 Order name: Urine Dipstick--Ancillary (enter results); Complete Time: 01:25 mw2 12/28 22:31 Order name: Stroke CXR 1 View 12/28 22:31 Order name: Accucheck; Complete Time: 22:45 bb 12/28 22:31 Order name: Cardiac monitoring; Complete Time: 22:44 12/28 22:31 Order name: EKG - Nurse/Tech; Complete Time: 22:45 12/28 22:31 Order name: IV Saline Lock; Complete Time: 22:45 12/28 22:31 Order name: Labs collected and sent; Complete Time: 22:47 12/28 22:31 Order name: NPO; Complete Time: 22:48 12/28 22:31 Order name: O2 Per Protocol; Complete Time: 22:48 12/28 22:31 Order name: O2 Sat Monitoring; Complete Time: 22:48 12/28 22:31 Order name: Stroke Swallow Screen; Complete Time: 22:49 bb Administered Medications: 12/28 23:39 Drug: Lopressor 5 mg Route: IVP; Site: left wrist; jb4 12/29 00:00 Follow up: Response: No adverse reaction; Blood pressure is unchanged 4 00:12 Drug: hydrALAZINE 20 mg {Note: given slow IV Push per pharmacy protocol..} Route: IV; [facility] Rate: calculated rate; Site: left wrist; 00:15 Follow up: Response: No adverse reaction; Blood pressure is lowered; IV Status: jb4 Completed infusion; IV Intake: 1ml Point of Care Testing: Blood Glucose: 12/28 22:14 Blood Glucose: 95 mg/dL; lp1 Ranges: Critical Glucose Levels:Adult <50 mg/dl or >400 mg/dl <40 mg/dl or >180 mg/dl Disposition: 12/29/18 01:25 Transfer ordered to [facility]. Diagnosis is Confusion. Speech difficulty. Transient ischemic attack. - Reason for transfer: Higher level of care. - Accepting physician is Dr. Cast. - Condition is Stable. - Problem is new. - Symptoms have improved. NIH Stroke Scale - NIH Stroke Score Date: 12/28/2018 Time: 22:29 Total Score = 2 1a. Level of Consciousness (LOC) - 0(Alert) 1b. Level of Consciousness (LOC) (Year \\T\\ Age) - 0(Both) 1c. LOC Commands (Open \\T\\ Closes Eyes/Ordained Minister) - 0(Both) 2. Best Gaze (Lateral Gaze Paresis) - 0(Normal) 3. Visual Field Loss - 0(No visual loss) 4. Facial Palsy - 0(Normal) 5a. Left Arm: Motor (10-second hold) - 0(No drift) 5b. Right Arm: Motor (10-second hold) - 0(No drift) 6a. Left Leg: Motor (5-second hold - always test supine) - 0(No drift) 6b. Right Leg: Motor (5-second hold - always test supine) - 0(No drift) 7. Limb Ataxia (finger/nose \\T\\ heel/calle - test with eyes open) - 0(Absent) 8. Sensory Loss (pinprick arms/legs/face) - 0(Normal) 9. Best Language: Aphasia (description/naming/reading) - 1(Mild to moderate aphasia) 10. Dysarthria (speech clarity - read or repeat words) - 1(Mild to Moderate) 11. Extinction and Inattention (visual/tactile/auditory/spatial/personal) - 0(No abnormality) Initials: jb4 Signatures: Dispatcher [employer] EDMS Asa Paz MD MD pkl Fern Underwood, RN RN bb Jacque Pitts, JACK RN lp1 Yonathan Bertrand RN RN jb4 Corrections: (The following items were deleted from the chart) 12/29 01:23 09 23:27 12/28/2018 23:27 Transfer ordered to [facility]. Diagnosis is Confusion. Speech difficulty Transient ishemic attack. Reason for transfer: Higher level of care. Accepting physician is Dr. Berg. Condition is Stable. Problem is new. Symptoms have improved. pkl 12/29 02:15 01:25 12/29/2018 01:25 Transfer ordered to [facility]. jb4 Diagnosis is Confusion. Speech difficulty. Transient ischemic attack. Reason for transfer: Higher level of care. Accepting physician is Dr. Cast. Condition is Stable. Problem is new. Symptoms have improved. pkl
--- NOTE | 2018-12-28 23:28 | ER ---
Nurse's Notes [facility] Name: Lady Raines Age: 73 yrs Sex: Female : 1945 Arrival Date: 12/28/2018 Time: 22:11 Bed 16 Private MD: Diagnosis: Confusion. Speech difficulty. Transient ischemic attack Presentation: 12/28 22:19 Presenting complaint: Grand daughter states receiving phone call from patient at 2126 lp1 and she was confused and could not get her words out; Patient lives alone at home; Unknown last well time; Patient ambulated independently into ER lobby. Transition of care: patient was not received from another setting of care. Onset of symptoms is unknown. Risk Assessment: Do you want to hurt yourself or someone else? Patient reports no desire to harm self or others. Initial Sepsis Screen: Does the patient meet any 2 criteria? No. Patient's initial sepsis screen is negative. Does the patient have a suspected source of infection? No. Patient's initial sepsis screen is negative. Care prior to arrival: None. 22:19 Method Of Arrival: Ambulatory lp1 22:19 Acuity: KOMAL 2 lp1 Historical: - Allergies: 22:25 "zocar drugs"; lp1 22:25 Codeine; lp1 22:25 Hydrocodone-Acetaminophen; lp1 22:25 Phenergan; lp1 22:25 tramadol; lp1 - Home Meds: 22:25 Estradiol 0.1 mg once a day Oral 1 tab once daily [Active]; sotalol 80 mg Oral tab 0.5 lp1 tab daily [Active]; levothyroxine 50 mcg tab 1 tab once daily [Active]; aspirin 81 mg Oral TbEC 1 tab once daily [Active]; Acid Clinching Machine Operator (cimetidine) 200 mg Oral tab 1 tab once daily [Active]; clonazepam 0.5 mg Oral TbDL [Active]; amiodarone 200 mg Oral tab 1 tab once daily [Active]; clonidine HCl 0.1 mg Oral tab 1 tab 2 times per day [Active]; metoprolol tartrate 25 mg Oral tab 1 tab 2 times per day [Active]; - PMHx: 22:25 AFIB; Hyperlipidemia; Hypertension; reflux; lp1 - PSHx: 22:25 Hysterectomy; shoulder sx; Knee surgery; back sx; Cholecystectomy; Bladder suspension; lp1 - Immunization history:: Adult Immunizations up to date. - Ebola Screening: : No symptoms or risks identified at this time. Screenin:15 Abuse screen: Denies threats or abuse. Nutritional screening: No deficits noted. jb4 Tuberculosis screening: No symptoms or risk factors identified. Fall Risk Secondary diagnosis (15 points) TIA, IV access (20 points). Total Maurer Fall Scale indicates Low Risk Score (25-44 pts). Fall prevention measures have been instituted. Side Rails Up X 2 Placed close to Nursing Station Frequent Obs/Assesments occuring Family Present and informed to notify staff if they need to leave bedside As available Patient and Family Educated on Fall Prevention Program and strategies. 22:29 The patient passed the bedside swallow screening. Oral medications may be given as jb4 ordered. Contact Physician for further diet orders. Assessment: 22:15 General: Appears in no apparent distress. comfortable, Behavior is calm, cooperative, jb4 appropriate for age. Pain: Denies pain. Neuro: Level of Consciousness is awake, alert, obeys commands, Oriented to person, place, time, situation, Casino Controller are equal bilaterally Moves all extremities. Gait is steady, Speech is slurred, with expressive aphasia noted, Facial symmetry appears normal, Pupils are PERRLA, Intact. Cardiovascular: Patient's skin is warm and dry. Respiratory: Airway is patent Respiratory effort is even, unlabored, Respiratory pattern is regular, symmetrical. GI: No deficits noted. No signs and/or symptoms were reported involving the gastrointestinal system. : No deficits noted. No signs and/or symptoms were reported regarding the genitourinary system. EENT: No deficits noted. No signs and/or symptoms were reported regarding the EENT system. Derm: Skin is intact, Skin is pink, warm \\T\\ dry. Musculoskeletal: Circulation, motion, and sensation intact. Range of motion: intact in all extremities. 22:18 Reassessment: Pt to Ct. jb4 23:00 Reassessment: Patient appears in no apparent distress at this time. No changes from jb4 previously documented assessment. Patient and/or family updated on plan of care and expected duration. Pain level reassessed. Patient is alert, oriented x 3, equal unlabored respirations, skin warm/dry/pink. 23:30 Reassessment: PT speech has improved, is speaking fluently and clearly. jb4 12/29 00:00 Reassessment: Patient appears in no apparent distress at this time. Patient and/or jb4 family updated on plan of care and expected duration. Pain level reassessed. Patient is alert, oriented x 3, equal unlabored respirations, skin warm/dry/pink. Blood pressure unchanged, provider notified, see MAR for orders. 00:16 Reassessment: B/p decreased to 141/90, Provider notified. jb4 01:00 Reassessment: Patient appears in no apparent distress at this time. Patient and/or jb4 family updated on plan of care and expected duration. Pain level reassessed. Patient is alert, oriented x 3, equal unlabored respirations, skin warm/dry/pink. 01:30 Reassessment: Patient appears in no apparent distress at this time. Patient and/or jb4 family updated on plan of care and expected duration. Pain level reassessed. Patient is alert, oriented x 3, equal unlabored respirations, skin warm/dry/pink. Transfer form signed. 01:41 Reassessment: Report called to JACK Del Valle at [facility]. jb4 02:11 Reassessment: Patient appears in no apparent distress at this time. Patient and/or jb4 family updated on plan of care and expected duration. Pain level reassessed. Patient is alert, oriented x 3, equal unlabored respirations, skin warm/dry/pink. PT loaded onto EMS transfer. Speech is clear, IV left in for transfer. Transported out of ED via stretcher. Vital Signs: 12/28 22:10 BP 181 / 119; Pulse 80; Resp 18; Pulse Ox 99% on R/A; lp1 22:18 BP 182 / 104; Pulse 78; Resp 18; Pulse Ox 99% on R/A; lp1 22:47 Temp 98.7(O); Weight 71.2 kg (M); jb4 22:53 BP 160 / 87; Pulse 73; Resp 19; Pulse Ox 99% on R/A; jb4 12/29 00:00 BP 181 / 102; Pulse 72; Resp 17; Pulse Ox 99% on R/A; jb4 00:15 BP 141 / 90; Pulse 80; Resp 17; Pulse Ox 98% on R/A; jb4 00:30 BP 110 / 75; Pulse 82; Resp 15; Pulse Ox 99% on R/A; jb4 01:00 BP 122 / 72; Pulse 85; Resp 15; Pulse Ox 98% on R/A; jb4 01:30 BP 135 / 76; Pulse 81; Resp 20; Pulse Ox 98% on R/A; jb4 02:00 BP 140 / 85; Pulse 87; Resp 21; Pulse Ox 98% on R/A; jb4 NIH Stroke Scale Scores: 12/28 22:29 NIHSS Score: 2 jb4 ED Course: 22:11 Patient arrived in ED. ds1 22:15 Patient has correct armband on for positive identification. Placed in gown. Bed in low jb4 position. Call light in reach. Side rails up X 1. cardiac monitor on. Pulse ox on. NIBP on. 22:[address] via stretcher. lp1 22:20 Triage completed. lp1 22:20 EKG done, by ED staff, reviewed by Asa Paz MD. jb4 22:21 Arm band placed on. lp1 22:27 CT Stroke Brain w/o Contrast In Process Unspecified. EDMS 22:28 Asa Paz MD is Attending Physician. pkl 22:30 Initial lab(s) drawn, by label machine operator, sent to lab. jb4 22:31 Yonathan Bertrand, RN is Primary Nurse. jb4 22:35 Missed attempt(s): 20 gauge in left antecubital area. Bleeding controlled, band aid aa1 applied, catheter tip intact. 22:39 Stroke CXR 1 View In Process Unspecified. EDMS 22:40 Inserted saline lock: 22 gauge in left forearm, using aseptic technique. aa1 12/29 02:14 No provider procedures requiring assistance completed. Patient transferred, IV remains jb4 in place. Administered Medications: 12/28 23:39 Drug: Lopressor 5 mg Route: IVP; Site: left wrist; jb4 12/29 00:00 Follow up: Response: No adverse reaction; Blood pressure is unchanged jb4 00:12 Drug: hydrALAZINE 20 mg {Note: given slow IV Push per pharmacy protocol..} Route: IV; jb4 Rate: calculated rate; Site: left wrist; 00:15 Follow up: Response: No adverse reaction; Blood pressure is lowered; IV Status: jb4 Completed infusion; IV Intake: 1ml Point of Care Testing: Blood Glucose: 12/28 22:14 Blood Glucose: 95 mg/dL; lp1 Ranges: Intake: 12/29 00:15 IV: 1ml; Total: 1ml. jb4 Outcome: 12/28 23:27 ER care complete, transfer ordered by . [email or web address] 12/29 01:25 ER care complete, transfer ordered by . [email or web address] 02:14 Transferred by ground EMS to [facility], Transfer form completed. jb4 X-rays sent w/ patient. 02:14 Condition: stable 02:14 Discharge instructions given to patient, Instructed on the need for transfer, Demonstrated understanding of instructions. 02:15 Patient left the ED. jb4 NIH Stroke Scale - NIH Stroke Score Date: 12/28/2018 Time: 22:29 Total Score = 2 1a. Level of Consciousness (LOC) - 0(Alert) 1b. Level of Consciousness (LOC) (Year \\T\\ Age) - 0(Both) 1c. LOC Commands (Open \\T\\ Closes Eyes/Transaction Processor) - 0(Both) 2. Best Gaze (Lateral Gaze Paresis) - 0(Normal) 3. Visual Field Loss - 0(No visual loss) 4. Facial Palsy - 0(Normal) 5a. Left Arm: Motor (10-second hold) - 0(No drift) 5b. Right Arm: Motor (10-second hold) - 0(No drift) 6a. Left Leg: Motor (5-second hold - always test supine) - 0(No drift) 6b. Right Leg: Motor (5-second hold - always test supine) - 0(No drift) 7. Limb Ataxia (finger/nose \\T\\ heel/calle - test with eyes open) - 0(Absent) 8. Sensory Loss (pinprick arms/legs/face) - 0(Normal) 9. Best Language: Aphasia (description/naming/reading) - 1(Mild to moderate aphasia) 10. Dysarthria (speech clarity - read or repeat words) - 1(Mild to Moderate) 11. Extinction and Inattention (visual/tactile/auditory/spatial/personal) - 0(No abnormality) Initials: jb4 Signatures: Dispatcher [employer] EDMS Cinthia Nunes RN RN aa1 Asa Paz MD MD pkl Mary Rajan ds1 Jacque Pitts RN RN lp1 Yonathan Bertrand RN RN jb4 Corrections: (The following items were deleted from the chart) 00:30 00:15 BP 141 / 90; Pulse 8bpm; Resp 17bpm; Pulse Ox 98% RA; jb4 jb4
[2018-12-29] MEDS ORDERED: HYDRALAZINE HCL 20 MG/ML VIAL ONE (00:03)
[2018-12-29 01:09] LABS: Urine Blood NEGATIVE (NEG); Urine Glucose NEGATIVE (NEG); Urine Protein NEGATIVE (NEG)
[2018-12-29 02:33] VITALS: TEMP 98.7
[2018-12-29 02:41] VITALS: O2SAT 98
[2018-12-29 02:43] VITALS: BP 140/85
--- NOTE | 2018-12-29 08:14 | RAD REPORT ---
EXAM DESCRIPTION: [place] Single View12/28/2018 10:48 pm CLINICAL HISTORY: Chest pain COMPARISON: November 2018 FINDINGS: Left pneumonia has almost completely resolved. The right lung appears clear of acute infiltrate. The heart is mildly enlarged
--- NOTE | 2018-12-29 10:02 | RAD REPORT ---
EXAM DESCRIPTION: CT - Ct Stroke Brain Wo Cont - 12/29/2018 5:59 am CLINICAL HISTORY: CONFUSED COMPARISON: None available TECHNIQUE: Axial CT of the head obtained from the skull apex to the skull base without contrast. FINDINGS: No acute intracranial hemorrhage identified. No mass, mass effect, shift of the midline, a bnormal extra-axial fluid collection or CT evidence of acute ischemic change identified. The ventricu lar system and sulcal spaces are mildly enlarged compatible with mild cerebral atrophy. Scattered a reas of hypodensity throughout the supratentorial white matter are nonspecific and may be related to chronic small vessel ischemic change. The visualized paranasal sinuses and the mastoids are clear. No skull fracture identified. Vis ualized orbits and globes are unremarkable DLP: 46 mGy-cm IMPRESSION: 1. No acute intracranial abnormality by CT criteria. This exam was performed according to our departmental dose-optimization program, which includes autom ated exposure control, adjustment of the mA and/or kV according to patient size and/or use of iterati ve reconstruction technique. Electronically signed by: Dexter Weaver 12/28/2018 10:34 PM CDT Due to temporary technical issues with the PACS/Fluency reporting system, reports are being signed by the in house radiologist as a courtesy to ensure prompt reporting. The interpreting radiologist is f ully responsible for the content of the report.
== END 2018-12-29 02:15 | disposition short-term general hospital (02) ==
LOC: ER 22:07
DX: G45.9 Transient cerebral ischemic attack, unspecified (principal); R47.9 Unspecified speech disturbances; I10 Essential (primary) hypertension; I48.91 Unspecified atrial fibrillation; E78.5 Hyperlipidemia, unspecified; Z79.82 Long term (current) use of aspirin; Z88.5 Allergy status to narcotic agent; Z88.6 Allergy status to analgesic agent; Z88.8 Allergy status to other drugs, medicaments and biological substances
CPT/HCPCS: 85025; 80048; 36415; 85610; 82962; 85730; 81003; 70450; 71045; 96375; 96374; 99285; J0360

== ENCOUNTER 2019-07-17 22:42 | Observation (INO) | payer OTHER ==
--- OUTSIDE RECORDS SUMMARY | 2019-07-17 22:47 | XMS REPORT ---
:1945 [facility] Organization [facility] Address [address] [place] [place] [address] Care Team Providers Name Role Phone DAVID KIDD V. Unavailable Unavailable LENARD LUNA Unavailable Unavailable Payers Payer Name Policy Type Policy Number Effective Date Expiration Date Problems This patient has no known problems. Allergies, Adverse Reactions, Alerts Allergy Name Allergy Status Severity Reaction(s) Onset Inactive Treating Comments Type Date Date Clinician promethazine DA Active RI 2009-04 HCl 05-11 00:00: 00 hydrocodone bit DA Active RI 2009-04 00:00: 00 propoxyphene DA Active U 2009-04 napsylate 05-11 00:00: 00 atorvastatin DA Active RI 2009-04 calcium 05-11 00:00: 00 quetiapine DA Active RI 2009-04 fumarate 05-11 00:00: 00 codeine DA Active RI 2009-04 00:00: 00 acetaminophen DA Active U 2009-04 00:00: 00 simvastatin DA Active RI 2009-04 00:00: 00 trazodone DA Active RI 2009-04 00:00: 00 latex DA Active RI 2009-04 00:00: 00 Medications This patient has no known medications. Results Test Description Test Time Test Comments Text Results Atomic Results Result Comments LIPID PANEL 2018-12-30 06:34:00 Test Item Value Reference Range Comments TRIGLYCERIDES (BEAKER) (test frab=844) 190 mg/dL CHOLESTEROL (BEAKER) (test kfzp=572) 244 mg/dL HDL CHOLESTEROL (BEAKER) (test slqj=055) 77 mg/dL LDL CHOLESTEROL CALCULATED (BEAKER) (test ghrw=860) 129 mg/dL Triglyceride Reference Range: Low Risk <150 Borderline 150- 199 High Risk 200-499 Very High Risk >=500Cholesterol Reference Range: Low Risk <200 Borderline 200-239 High Risk > 240HDL Cholesterol Reference Range: Low Risk >=60 High Risk <40LDL Cholesterol Reference Range: Optimal <100 Near Optimal 100-129 Borderline 130-159 High 160-189 Very High >=190BASIC METABOLIC [id number] 06:34:00 Test Item Value Reference Range Comments SODIUM (BEAKER) (test 135 meq/L 136-145 jieo=329) POTASSIUM (BEAKER) (test 3.9 meq/L 3.5-5.1 pvky=975) CHLORIDE (BEAKER) (test 102 meq/L 98-107 tjpd=283) CO2 (BEAKER) (test 26 meq/L 22-29 xgzw=017) BLOOD UREA NITROGEN 14 mg/dL 7-21 (BEAKER) (test mxci=469) CREATININE (BEAKER) (test 0.79 mg/dL 0.57-1.25 gcvd=897) GLUCOSE RANDOM (BEAKER) 96 mg/dL 70-105 (test jrik=854) CALCIUM (BEAKER) (test 9.4 mg/dL 8.4-10.2 uyoc=816) EGFR (BEAKER) (test 71 mL/min/1.73 sq m ESTIMATED GFR IS NOT bhip=3141) ACCURATE CREATININE CLEARANCE IN PREDICTING GLOMERULAR FILTRATION RATE. ESTIMATED GFR IS NOT APPLICABLE FOR DIALYSIS PATIENTS. TSH/FREE T4 IF [id number] 06:07:00 Test Item Value Reference Range Comments THYROID STIMULATING HORMONE (BEAKER) (test 4.72 uIU/mL 0.35-4.94 gvmu=417) CBC (HEMOGRAM ONLY)2018-12-30 05:28:00 Test Item Value Reference Range Comments WHITE BLOOD CELL COUNT (BEAKER) (test wqae=485) 6.8 K/ L 3.5-10.5 RED BLOOD CELL COUNT (BEAKER) (test rwoe=946) 4.32 M/ L 3.93-5.22 HEMOGLOBIN (BEAKER) (test upcv=480) 13.4 GM/DL 11.2-15.7 HEMATOCRIT (BEAKER) (test pumf=933) 39.8 % 34.1-44.9 MEAN CORPUSCULAR VOLUME (BEAKER) (test evxx=391) 92.1 fL 79.4-94.8 MEAN CORPUSCULAR HEMOGLOBIN (BEAKER) (test 31.0 pg 25.6-32.2 gcti=830) MEAN CORPUSCULAR HEMOGLOBIN CONC (BEAKER) (test 33.7 GM/DL 32.2-35.5 reay=941) RED CELL DISTRIBUTION WIDTH (BEAKER) (test 13.2 % 11.7-14.4 lsyv=753) PLATELET COUNT (BEAKER) (test dlhj=992) 215 K/CU MM 150-450 MEAN PLATELET VOLUME (BEAKER) (test xmrb=454) 9.5 fL 9.4-12.3 NUCLEATED RED BLOOD CELLS (BEAKER) (test 0 /100 WBC 0-0 gizz=838) MR, BRAIN, WITHOUT [id number] 19:36:00Reason for exam:->Ischemic Stroke EvaluationFINAL REPORT MR, BRAIN, WITHOUT CONTRAST INDICATION: Neuro deficit, acute, stroke suspectedIschemic Stroke Evaluation TECHNIQUE: Multiplanar, multisequence MR imaging of the brain without intravenous contrast. COMPARISON: MRI 12/18/2010 FINDINGS: Intracranial : Interval progression of mild cerebral volume loss. Scattered foci of T2 prolongation within the periventricular and subcortical white matter, markedly progressed since the prior exam, are a nonspecific finding commonly attributed to chronic small vessel ischemic disease. No intracranial hemorrhage. No restricted diffusion to suggest acute infarct. No mass effect. No hydrocephalus. Visualized intracranial flow voids are patent. Sinuses: Marked mucosal thickening in the right sphenoid sinus. Mucous retention cyst in the right maxillary sinus. Left mastoid effusion. Trace right mastoid fluid as well. Orbits: Globes areintact. Calvarium \T\ scalp: Unremarkable. IMPRESSION: 1.No intracranial hemorrhage or acute infarct.2.Interval progression of cerebral atrophy and chronic microvascular changes since 2010. Signed: Wade Tinajero Verified Date/Time: 12/29/2018 19:36:39 HEMOGLOBIN [id number] 11:34:00 Test Item Value Reference Range Comments HEMOGLOBIN A1C (BEAKER) (test htyx=961) 6.3 % 4.3-6.1 VITAMIN B12 AND [id number] 11:00:00 Test Item Value Reference Range Comments VITAMIN B12 (BEAKER) (test onmq=673) 312 pg/mL 213-816 FOLATE (BEAKER) (test koib=591) 10.2 ng/mL >=7.0 [id number] 10:28:00 Test Item Value Reference Range Comments PHOSPHORUS (BEAKER) (test qehx=678) 3.1 mg/dL 2.3-4.7 [id number] 10:28:00 Test Item Value Reference Range Comments MAGNESIUM (BEAKER) (test bdje=143) 1.7 mg/dL 1.6-2.6 BASIC METABOLIC [id number] 10:28:00 Test Item Value Reference Range Comments SODIUM (BEAKER) (test 135 meq/L 136-145 sixo=826) POTASSIUM (BEAKER) (test 4.2 meq/L 3.5-5.1 qlqb=758) CHLORIDE (BEAKER) (test 101 meq/L 98-107 grhx=846) CO2 (BEAKER) (test 28 meq/L 22-29 myso=494) BLOOD UREA NITROGEN 15 mg/dL 7-21 (BEAKER) (test tfkq=736) CREATININE (BEAKER) (test 0.79 mg/dL 0.57-1.25 bwnc=914) GLUCOSE RANDOM (BEAKER) 121 mg/dL 70-105 (test dejt=261) CALCIUM (BEAKER) (test 9.2 mg/dL 8.4-10.2 ybuz=966) EGFR (BEAKER) (test 71 mL/min/1.73 sq m ESTIMATED GFR IS NOT rwaf=2777) ACCURATE CREATININE CLEARANCE IN PREDICTING GLOMERULAR FILTRATION RATE. ESTIMATED GFR IS NOT APPLICABLE FOR DIALYSIS PATIENTS. HEPATIC FUNCTION [id number] 10:28:00 Test Item Value Reference Range Comments TOTAL PROTEIN (BEAKER) (test lcrx=611) 6.4 gm/dL 6.0-8.3 ALBUMIN (BEAKER) (test auhn=0417) 3.7 g/dL 3.5-5.0 BILIRUBIN TOTAL (BEAKER) (test cfjl=633) 0.5 mg/dL 0.2-1.2 BILIRUBIN DIRECT (BEAKER) (test ljdz=595) 0.2 mg/dL 0.1-0.5 ALKALINE PHOSPHATASE (BEAKER) (test oltn=268) 79 U/L 40-150 AST (SGOT) (BEAKER) (test hbnr=543) 15 U/L 5-34 ALT (SGPT) (BEAKER) (test zkdc=802) 9 U/L 6-55 [id number] 10:00:00 Test Item Value Reference Range Comments PROTIME (BEAKER) (test bjqu=675) 12.7 seconds 11.9-14.2 INR (BEAKER) (test yjzu=550) 1.0 <=5.9 PARTIAL THROMBOPLASTIN TIME (BEAKER) (test 29.0 seconds 22.5-36.0 oiuq=027) Effective 09/21/2018: PT Reference Range ChangeNew: 11.9-14.2 Previous: 11.7- 14.7RECOMMENDED COUMADIN/WARFARIN INR THERAPY RANGESSTANDARD DOSE: 2.0-3.0 Includes: PROPHYLAXIS for venous thrombosis, systemic embolization; TREATMENT for venous thrombosis and/or pulmonary embolus.HIGH RISK: Target INR is2.5-3.5 for patients wiht mechanical heart valves.CBC W/PLT COUNT & AUTO [id number] 08:09:00 Test Item Value Reference Range Comments WHITE BLOOD CELL COUNT (BEAKER) (test nhvh=104) 8.1 K/ L 3.5-10.5 RED BLOOD CELL COUNT (BEAKER) (test gmwd=789) 4.45 M/ L 3.93-5.22 HEMOGLOBIN (BEAKER) (test zoyq=018) 13.7 GM/DL 11.2-15.7 HEMATOCRIT (BEAKER) (test qjgh=435) 40.1 % 34.1-44.9 MEAN CORPUSCULAR VOLUME (BEAKER) (test izyg=335) 90.1 fL 79.4-94.8 MEAN CORPUSCULAR HEMOGLOBIN (BEAKER) (test 30.8 pg 25.6-32.2 mucb=740) MEAN CORPUSCULAR HEMOGLOBIN CONC (BEAKER) (test 34.2 GM/DL 32.2-35.5 yybo=036) RED CELL DISTRIBUTION WIDTH (BEAKER) (test 13.3 % 11.7-14.4 ckut=724) PLATELET COUNT (BEAKER) (test rxec=112) 202 K/CU MM 150-450 MEAN PLATELET VOLUME (BEAKER) (test yujf=361) 9.3 fL 9.4-12.3 NUCLEATED RED BLOOD CELLS (BEAKER) (test 0 /100 WBC 0-0 gkhv=970) NEUTROPHILS RELATIVE PERCENT (BEAKER) (test 61 % nqhm=614) LYMPHOCYTES RELATIVE PERCENT (BEAKER) (test 26 % idyb=432) MONOCYTES RELATIVE PERCENT (BEAKER) (test 10 % puet=871) EOSINOPHILS RELATIVE PERCENT (BEAKER) (test 2 % kbho=624) BASOPHILS RELATIVE PERCENT (BEAKER) (test 1 % joow=811) NEUTROPHILS ABSOLUTE COUNT (BEAKER) (test 4.91 K/ L 1.56-6.13 blbm=049) LYMPHOCYTES ABSOLUTE COUNT (BEAKER) (test 2.12 K/ L 1.18-3.74 ybfr=467) MONOCYTES ABSOLUTE COUNT (BEAKER) (test 0.78 K/ L 0.24-0.36 henf=986) EOSINOPHILS ABSOLUTE COUNT (BEAKER) (test 0.19 K/ L 0.04-0.36 gajc=145) BASOPHILS ABSOLUTE COUNT (BEAKER) (test 0.06 K/ L 0.01-0.08 nzww=316) IMMATURE GRANULOCYTES-RELATIVE PERCENT (BEAKER) 0 % 0-1 (test vvna=1003) - MRI L-SPINE W/O [id number] 09:54:00 Patient Name: SAVANNA CASTILLO Unit No: [id number] EXAMS: CPT CODE: [id number] MRI L-SPINE W/O CONT 17199 TECHNIQUE: Multiplanar, multisequence MRI examination performed of the lumbar spine without intravenous contrast material. COMPARISON: MR dated 04/08/2010 FINDINGS: Postoperative changes of L3- L5 posterior decompression and fusion demonstrated. There is [...] with posterior fusion. No significant foraminal stenosis. L4 /5: Discectomy with interbody graft. Central canal is [...] there is moderate central canal stenosis. at 0914 Reported and signed by: Josafat Lux M.D. [facility] NAME: SAVANNA CASTILLO [address] [facility] [address] PHYS: Justo Negron MD : 1945 AGE: 72SEX: F [place], [place] [address] LOC: Y.MRI PHONE #: [phone] EXAM DATE: 06/13/2018 STATUS: DEP CLI FAX #: [phone] RAD #: [id number] D/C DT PAGE 1 Signed Report (CONTINUED) Patient Name: SAVANNA CASTILLO Unit No: [id number] EXAMS: CPT CODE: [id number] MRI L-SPINE W/O CONT 56800 <Continued& gt; CC: Lázaro Butterfield MD; Kris Adames M.D. Technologist: BALBINA KIM MRI Transcribed D/ (0954) [facility] NAME: SAVANNA CASTILLO [address] [facility] [address] PHYS: Justo Negron MD : 1945 AGE: 72 SEX: F [place] [address] LOC: Y.MRI PHONE #: [phone] EXAM DATE: 06/13/2018 STATUS: DEP CLI FAX #: [phone] RAD #: [id number] D/C DT PAGE 2 Signed Report Patient Name: SAVANNA CASTILLO Unit No: [id number] EXAMS: CPT CODE: [id number] MRI L-SPINE W/O CONT 14893 <Continued> Orig Print D/T: S: 06/14/2018 (0957) [facility] NAME: SAVANNA CASTILLO [address] [facility] [address] PHYS: Justo Negron MD : 1945 AGE: 72 SEX: F [place] [address] LOC: Y.MRI PHONE #: EXAM DATE: 06/13/2018 STATUS: DEP CLI FAX #: RAD #: [id number] D/C DT PAGE 3 Signed Report- MRI LW JNT W/O CONT [id number] 07:09:00 Patient Name: SAVANNA CASTILLO Unit No: [id number] EXAMS: CPT CODE: [id number] MRI LW JNT W/[place] [address] MRI OF THE PELVIS AND HIPS WITH SPECIAL ATTENTION TO THE LEFT HIP DIAGNOSIS: 1. Partial-thickness tears of the gluteus medius tendon insertions leftworse than right without tendon retraction or muscular [...] or tears are seen. There is no evidencefor a pelvic mass or free pelvic fluid. at 0709 Reportedand signed by: Misha Benavides MD CC: Lázaro Butterfield MD; Aguila Aguayo Technologist: Rosa M Lew, RT(R) Transcribed D/ (0709) [email or web address] [facility] NAME: SAVANNA CASTILLO [address] [facility] PHYS: MAGALIE - Aguila Servin : 1945 AGE: 72 SEX: F [place] [address] LOC: Y.MRI PHONE #: [phone] EXAM DATE: 06/03/2018 STATUS: DEP CLI FAX #: [phone] RAD #: [id number] D/C DT PAGE 1 Signed Report Patient Name: SAVANNA CASTILLO Unit No: [id number] EXAMS: CPT CODE: [id number] MRI LW JNT W/[place] [address] <Continued> Orig Print D/T: S: 06/04/2018 (0712) [facility] NAME: SAVANNA CASTILLO [address] [facility] PHYS: MAGALIE - Aguila Servin : 1945 AGE: 72 SEX: F [place] [address] LOC: Y.MRI PHONE #: [phone] EXAM DATE: 06/03/2018 STATUS: DEP CLI FAX #: [phone] RAD #: [id number] D/C DT PAGE 2 Signed [id number] 06:33:00 Test Item Value Reference Range Comments MAGNESIUM (BEAKER) (test vgps=496) 1.9 mg/dL 1.6-2.6 BASIC METABOLIC [id number] 06:33:00 Test Item Value Reference Range Comments SODIUM (BEAKER) (test 138 meq/L 136-145 mdeh=425) POTASSIUM (BEAKER) (test 4.0 meq/L 3.5-5.1 snse=264) CHLORIDE (BEAKER) (test 105 meq/L 98-107 qaoo=683) CO2 (BEAKER) (test 24 meq/L 22-29 iril=135) BLOOD UREA NITROGEN 10 mg/dL 7-21 (BEAKER) (test hrrf=756) CREATININE (BEAKER) (test 0.88 mg/dL 0.57-1.25 qctd=209) GLUCOSE RANDOM (BEAKER) 98 mg/dL 70-105 (test dloy=702) CALCIUM (BEAKER) (test 9.1 mg/dL 8.4-10.2 pohv=135) EGFR (BEAKER) (test 63 mL/min/1.73 sq m ESTIMATED GFR IS NOT pxhc=2984) ACCURATE CREATININE CLEARANCE IN PREDICTING GLOMERULAR FILTRATION RATE. ESTIMATED GFR IS NOT APPLICABLE FOR DIALYSIS PATIENTS. [id number] 06:33:00 Test Item Value Reference Range Comments AMYLASE (BEAKER) (test sapt=032) 54 U/L 25-125 IRON, TIBC, % SAT. (WITHOUT FERRITIN)2016-12-28 06:23:00 Test Item Value Reference Range Comments IRON (BEAKER) (test onwd=913) 30 ug/dL 40-160 TOTAL IRON BINDING CAPACITY (BEAKER) (test 316 ug/dL 250-450 uzzo=758) IRON % SATURATION (2) (BEAKER) (test wfym=5138) 9 % 20-55 CBC W/PLT COUNT & AUTO [id number] 06:16:00 Test Item Value Reference Range Comments WHITE BLOOD CELL COUNT (BEAKER) (test wohw=507) 6.2 K/ L 3.5-10.5 RED BLOOD CELL COUNT (BEAKER) (test qprm=721) 3.83 M/ L 3.93-5.22 HEMOGLOBIN (BEAKER) (test bqyi=962) 9.7 GM/DL 11.2-15.7 HEMATOCRIT (BEAKER) (test pvgg=436) 31.1 % 34.1-44.9 MEAN CORPUSCULAR VOLUME (BEAKER) (test qjxk=079) 81.2 fL 79.4-94.8 MEAN CORPUSCULAR HEMOGLOBIN (BEAKER) (test 25.3 pg 25.6-32.2 rjeg=043) MEAN CORPUSCULAR HEMOGLOBIN CONC (BEAKER) (test 31.2 GM/DL 32.2-35.5 nhia=828) RED CELL DISTRIBUTION WIDTH (BEAKER) (test 16.6 % 11.7-14.4 kjlr=944) PLATELET COUNT (BEAKER) (test fdwy=435) 294 K/CU MM 150-450 MEAN PLATELET VOLUME (BEAKER) (test qaas=788) 9.4 fL 9.4-12.3 NUCLEATED RED BLOOD CELLS (BEAKER) (test 0 /100 WBC 0-0 qvqc=382) NEUTROPHILS RELATIVE PERCENT (BEAKER) (test 61 % enpz=485) LYMPHOCYTES RELATIVE PERCENT (BEAKER) (test 27 % yvaq=296) MONOCYTES RELATIVE PERCENT (BEAKER) (test 10 % ayqc=131) EOSINOPHILS RELATIVE PERCENT (BEAKER) (test 2 % gqkd=018) BASOPHILS RELATIVE PERCENT (BEAKER) (test 1 % ajbj=938) NEUTROPHILS ABSOLUTE COUNT (BEAKER) (test 3.77 K/ L 1.56-6.13 lcge=644) LYMPHOCYTES ABSOLUTE COUNT (BEAKER) (test 1.64 K/ L 1.18-3.74 hwca=538) MONOCYTES ABSOLUTE COUNT (BEAKER) (test 0.62 K/ L 0.24-0.36 dcko=813) EOSINOPHILS ABSOLUTE COUNT (BEAKER) (test 0.10 K/ L 0.04-0.36 skhm=820) BASOPHILS ABSOLUTE COUNT (BEAKER) (test 0.03 K/ L 0.01-0.08 voro=873) IMMATURE GRANULOCYTES-RELATIVE PERCENT (BEAKER) 0 % 0-1 (test mtex=0015) [id number] 14:25:00 Test Item Value Reference Range Comments FERRITIN (BEAKER) (test iyot=553) 28 ng/mL 5-275 Effective 03/13/2014: Reference Range ChangeNew: Male 5-275 Previous: Male 22-322 Female 5-275 Female 10-291TSH/FREE T4 IF [id number] 14:25:00 Test Item Value Reference Range Comments THYROID STIMULATING HORMONE (BEAKER) (test 1.47 uIU/mL 0.35-4.94 pvwo=631) HEPATIC FUNCTION [id number] 14:04:00 Test Item Value Reference Range Comments TOTAL PROTEIN (BEAKER) (test 6.5 gm/dL 6.0-8.3 Specimen slightly hemolyzed fdqf=036) ALBUMIN (BEAKER) (test 3.6 g/dL 3.5-5.0 Specimen slightly hemolyzed bltp=7403) BILIRUBIN TOTAL (BEAKER) (test 0.5 mg/dL 0.2-1.2 Specimen slightly hemolyzed rsml=392) BILIRUBIN DIRECT (BEAKER) (test 0.2 mg/dL 0.1-0.5 Specimen slightly hemolyzed mimp=515) ALKALINE PHOSPHATASE (BEAKER) 56 U/L 40-150 (test kkoc=728) AST (SGOT) (BEAKER) (test 33 U/L 5-34 Specimen slightly hemolyzed onpd=388) ALT (SGPT) (BEAKER) (test 37 U/L 6-55 Specimen slightly hemolyzed lcyq=754) RETICULOCYTE [id number] 13:37:00 Test Item Value Reference Range Comments RETICULOCYTE COUNT PCT (BEAKER) (test bmts=560) 1.7 % 0.5-1.7 HEMOGLOBIN [id number] 10:31:00 Test Item Value Reference Range Comments HEMOGLOBIN A1C (BEAKER) (test wexg=087) 7.0 % 4.3-6.1 TROPONIN [id number] 05:43:00 Test Item Value Reference Range Comments TROPONIN I (BEAKER) (test xowe=886) 0.19 ng/mL 0.00-0.03 Effective 03/13/2014: Reference Range [...] renalfailure, acidosis, acute neurological disease, and persistent tachyarrhythmia.[id number] 05:34: 00 Test Item Value Reference Range Comments MAGNESIUM (BEAKER) (test khqm=337) 1.7 mg/dL 1.6-2.6 BASIC METABOLIC [id number] 05:34:00 Test Item Value Reference Range Comments SODIUM (BEAKER) (test 138 meq/L 136-145 jhkt=083) POTASSIUM (BEAKER) (test 4.0 meq/L 3.5-5.1 zyai=119) CHLORIDE (BEAKER) (test 104 meq/L 98-107 fscg=866) CO2 (BEAKER) (test 24 meq/L 22-29 xgeq=357) BLOOD UREA NITROGEN 9 mg/dL 7-21 (BEAKER) (test czzo=685) CREATININE (BEAKER) (test 0.81 mg/dL 0.57-1.25 zeev=432) GLUCOSE RANDOM (BEAKER) 106 mg/dL 70-105 (test fewt=038) CALCIUM (BEAKER) (test 8.8 mg/dL 8.4-10.2 rjbr=065) EGFR (BEAKER) (test 69 mL/min/1.73 sq m ESTIMATED GFR IS NOT shzm=1804) ACCURATE CREATININE CLEARANCE IN PREDICTING GLOMERULAR FILTRATION RATE. ESTIMATED GFR IS NOT APPLICABLE FOR DIALYSIS PATIENTS. LIPID [id number] 05:34:00 Test Item Value Reference Range Comments TRIGLYCERIDES (BEAKER) (test xfkw=679) 108 mg/dL CHOLESTEROL (BEAKER) (test hrps=462) 266 mg/dL HDL CHOLESTEROL (BEAKER) (test psab=512) 65 mg/dL LDL CHOLESTEROL CALCULATED (BEAKER) (test 179 mg/dL kyon=081) Triglyceride Reference Range: Low Risk <150 Borderline 150- 199 High Risk 200-499 Very High Risk >=500Cholesterol Reference Range: Low Risk <200 Borderline 200-239 High Risk > 240HDL Cholesterol Reference Range: Low Risk >=60 High Risk <40LDL Cholesterol Reference Range: Optimal <100 Near Optimal 100-129 Borderline 130-159 High 160-189 Very High >=190CBC W/PLT COUNT & AUTO [id number] 05:33:00 Test Item Value Reference Range Comments WHITE BLOOD CELL COUNT (BEAKER) (test jfho=601) 5.9 K/ L 3.5-10.5 RED BLOOD CELL COUNT (BEAKER) (test zzxg=583) 3.50 M/ L 3.93-5.22 HEMOGLOBIN (BEAKER) (test zhdt=255) 8.9 GM/DL 11.2-15.7 HEMATOCRIT (BEAKER) (test bcit=091) 28.6 % 34.1-44.9 MEAN CORPUSCULAR VOLUME (BEAKER) (test dxyb=801) 81.7 fL 79.4-94.8 MEAN CORPUSCULAR HEMOGLOBIN (BEAKER) (test 25.4 pg 25.6-32.2 hqjq=235) MEAN CORPUSCULAR HEMOGLOBIN CONC (BEAKER) (test 31.1 GM/DL 32.2-35.5 vtgq=390) RED CELL DISTRIBUTION WIDTH (BEAKER) (test 16.3 % 11.7-14.4 jpeh=409) PLATELET COUNT (BEAKER) (test qpvm=125) 263 K/CU MM 150-450 MEAN PLATELET VOLUME (BEAKER) (test aanp=697) 9.7 fL 9.4-12.3 NUCLEATED RED BLOOD CELLS (BEAKER) (test 0 /100 WBC 0-0 ztto=425) NEUTROPHILS RELATIVE PERCENT (BEAKER) (test 65 % gdvx=883) LYMPHOCYTES RELATIVE PERCENT (BEAKER) (test 23 % xuii=271) MONOCYTES RELATIVE PERCENT (BEAKER) (test 9 % yyrg=971) EOSINOPHILS RELATIVE PERCENT (BEAKER) (test 2 % xdvo=473) BASOPHILS RELATIVE PERCENT (BEAKER) (test 1 % fnxi=066) NEUTROPHILS ABSOLUTE COUNT (BEAKER) (test 3.82 K/ L 1.56-6.13 nhji=334) LYMPHOCYTES ABSOLUTE COUNT (BEAKER) (test 1.33 K/ L 1.18-3.74 yxgs=317) MONOCYTES ABSOLUTE COUNT (BEAKER) (test 0.50 K/ L 0.24-0.36 vygt=028) EOSINOPHILS ABSOLUTE COUNT (BEAKER) (test 0.12 K/ L 0.04-0.36 ktvd=805) BASOPHILS ABSOLUTE COUNT (BEAKER) (test 0.05 K/ L 0.01-0.08 ivec=231) IMMATURE GRANULOCYTES-RELATIVE PERCENT (BEAKER) 1 % 0-1 (test osmi=2452) TROPONIN [id number] 21:11:00 Test Item Value Reference Range Comments TROPONIN I (BEAKER) (test wzkt=039) 0.26 ng/mL 0.00-0.03 Effective 03/13/2014: Reference Range [...] and persistent tachyarrhythmia.CREATINE KINASE (CK), TOTAL AND [id number] 21:06:00 Test Item Value Reference Range Comments CREATINE KINASE TOTAL (Intralign) (test kowo=119) 76 U/L 29-200 CREATINE KINASE-MB (Intralign) (test eojq=101) 2.7 ng/mL 0.0-6.6 CREATINE KINASE-MB INDEX (Intralign) (test mgfr=810) 3.6 % Effective 03/13/2014: CK-MB Reference Range ChangeNew: 0.0-6.6 Previous: 0.0- 4.9CK-MB Reference Range:<6.7 Normal6.7-10.0 Borderline>10.0 Abnormal
[2019-07-17 23:19] LABS: Absolute Lymphocytes (CBC) 1.9 K/uL (0.7-4.9); Basophils % 1.4 % (0-1.3); Lymphocytes % 24.3 % (15.3-44.8); MPV 7.7 fL (7.6-11.3); RBC Red Blood Cell Count 4.97 M/uL (3.86-4.86)
[2019-07-17] MEDS ORDERED: ONDANSETRON 4 MG/2 ML VIAL ONE (23:24)
[2019-07-17] MEDS ORDERED: NA CHLORIDE 0.9% 1,000 ML ONE (23:24)
[2019-07-17 23:40] LABS: ALT/SGPT 31 U/L (12-78); AST/SGOT 27 U/L (15-37); Albumin 3.9 g/dL (3.4-5.0); Alkaline Phosphatase 83 U/L (45-117); BUN Blood Urea Nitrogen 10 mg/dL (7-18); Bicarbonate 26 mmol/L (21-32); Bilirubin Direct 0.1 mg/dL (0-0.2); Bilirubin Total 0.5 mg/dL (0.2-1.0); Glucose Level 132 mg/dL (74-106); Magnesium 2.2 mg/dL (1.8-2.4); NT PRO-BNP 724 pg/mL (<450); Potassium 3.9 mmol/L (3.5-5.1); Protein, Total 8.1 g/dL (6.4-8.2); Sodium Level 137 mmol/L (136-145); Troponin (Emerg Dept Use Only) < 0.02 ng/mL (0.0-0.045)
[2019-07-18 00:02] LABS: Urine Blood NEGATIVE (NEG); Urine Glucose NEGATIVE (NEG); Urine Protein NEGATIVE (NEG)
[2019-07-18] MEDS ORDERED: METOPROLOL TARTRATE 5 MG/5 ML INJ IV ONE ×2 (00:19→01:18)
[2019-07-18] MEDS ORDERED: MORPHINE 2 MG/ML SYR ONE (00:19)
--- NOTE | 2019-07-18 00:47 | ER ---
Nurse's Notes [facility] Name: Lady Raines Age: 73 yrs Sex: Female : 1945 Arrival Date: 07/17/2019 Time: 22:47 Bed 7 Private MD: Diagnosis: Chest pain. Atrial fifrilation with RVR. Confusion Presentation: 07/16 23:03 Chief complaint: Patient states: "I have been feeling bad since this morning and jd3 tonight it has just gotten worse. I feel as though my chest is just gotten so tight. it doesn't really hurt, but just very tight. I also am feeling disoriented. I know what everything is, I just feel off center.". Coronavirus screen: Patient denies fever greater than 100.4F, cough, shortness of breath, or difficulty breathing. Proceed with normal triage process. Ebola Screen: Patient negative for fever greater than or equal to 101.5 degrees Fahrenheit, and additional compatible Ebola Virus Disease symptoms. Initial Sepsis Screen: Does the patient meet any 2 criteria? No. Patient's initial sepsis screen is negative. Does the patient have a suspected source of infection? No. Patient's initial sepsis screen is negative. Risk Assessment: Do you want to hurt yourself or someone else? Patient reports no desire to harm self or others. 23:03 Method Of Arrival: Wheelchair j 23:03 Acuity: KOMAL 3 [facility] 07/17 01:48 Onset of symptoms was July 17, 2019. [facility] Triage Assessment: 07/16 23:20 General: Appears in no apparent distress. General: Behavior is appropriate for age, ch anxious. GI: No deficits noted. Reports nausea. Historical: - Allergies: 23:09 "zocar drugs"; jd3 23:09 Codeine; jd3 23:09 Hydrocodone-Acetaminophen; jd3 23:09 Phenergan; jd3 23:09 tramadol; jd3 07/17 01:40 amlodipine; ch - Home Meds: 07/16 23:09 levothyroxine 75 mcg oral tab [Active]; aspirin 81 mg Oral TbEC 1 tab once daily jd3 [Active]; clonazepam 0.5 mg Oral TbDL [Active]; metoprolol succinate 100 mg oral Tb24 [Active]; amlodipine 5 mg tab [Active]; magnesium oxide 500 mg Oral tab [Active]; clopidogrel 75 mg oral tab [Active]; - PMHx: 23:09 Hypertension; reflux; AFIB; Hyperlipidemia; jd3 07/17 01:48 Anxiety; Hypothyroidism; jd3 - PSHx: 07/16 23:09 Knee surgery; shoulder sx; Hysterectomy; Cholecystectomy; Bladder suspension; back sx; jd3 Heart Surgery; - Immunization history:: Adult Immunizations up to date. - Social history:: Smoking status: Patient denies any tobacco usage or history of. Screenin/24 01:48 Abuse screen: Denies threats or abuse. Nutritional screening: No deficits noted. jd3 Tuberculosis screening: No symptoms or risk factors identified. Fall Risk Ambulatory Aid- None/Bed Rest/Nurse Assist (0 pts). Gait- Weak (10 pts.). Mental Status- Oriented to own ability (0 pts). Total Maurer Fall Scale indicates No Risk (0-24 pts). Assessment: 07/16 23:20 Reassessment: Patient appears in no apparent distress at this time. Patient and/or ch family updated on plan of care and expected duration. Pain level reassessed. Patient is alert, oriented x 3, equal unlabored respirations, skin warm/dry/pink. Neuro: No deficits noted. Respiratory: No deficits noted. EENT: No signs and/or symptoms were reported regarding the EENT system. Musculoskeletal: No signs and/or symptoms reported regarding the musculoskeletal system. Circulation, motion, and sensation intact. Capillary refill < 3 seconds, in bilateral fingers. toes. Range of motion: intact in all extremities. 23:30 Reassessment: PT ASSISTED TO BSC TO GIVE URINE SAMPLE. PT TOLERATED WELL. 07/17 00:15 Reassessment: PT IS VERY ANXIOUS IN ROOM AND STATES SHE DOES NOT FEEL BETTER. PT MEDIC ch ATED PER ORDERS. 00:15 General: Behavior is anxious. 00:36 Pain: Denies pain. Neuro: No deficits noted. Level of Consciousness is awake, alert, ch obeys commands, pt is slow to respond to questions, and has trouble finding words. . Oriented to person, place, time, situation, Rag Room Supervisor are equal bilaterally Moves all extremities. Full function Gait is steady, Speech is normal. Cardiovascular: Reports pt reports chest tightness. states there is like a band around my chest. denies pain Heart tones S1 S2 present. Respiratory: No deficits noted. Airway is patent Trachea midline Respiratory effort is even, unlabored, Respiratory pattern is regular, Breath sounds are clear bilaterally. GI: Abdomen is flat, non-distended, Bowel sounds present X 4 quads. Abd is soft and non tender X 4 quads. : No signs and/or symptoms were reported regarding the genitourinary system. Derm: Skin is pink, warm \\T\\ dry. 00:45 Reassessment: PT BP IS STILL ELEVATED. DECISION MADE TO ADMIT PT. ch 01:36 Reassessment: PT STATES SHE DID NOT TAKE HER HOME MEDICATIONS, HER NIGHT TIME MEDS. PT ch TAKE HER HOME METOPROLOL 100MG PO TAB. 02:00 Reassessment: REPORT CALLED TO GENIE. 02:10 Reassessment: Patient appears in no apparent distress at this time. Patient and/or ch family updated on plan of care and expected duration. Pain level reassessed. PT IS FEELING BETTER, PT APPEARS LESS ANXIOUS. PT IS RESTING QUIETLY IN ROOM, TALKING WITH DAUGHTER. Vital Signs: 07/16 23:09 BP 164 / 109; Pulse 84; Resp 19 S; Temp 97.3(TE); Pulse Ox 98% on R/A; Weight 68.95 kg jd3 (R); Height 5 ft. 6 in. (167.64 cm) (R); Pain 0/10; 23:45 BP 155 / 119; Pulse 100; ch 07/17 00:00 BP 184 / 110; Pulse 92; Pulse Ox 99% ; Pain 2/10; ch 00:10 BP 194 / 128; Pulse 98; ch 00:20 BP 206 / 132; Pulse 80; ch 00:25 BP 155 / 118; ch 00:35 BP 164 / 119; Pulse 103; ch 00:45 BP 183 / 128; Pulse 92; Resp 16; Temp 98.4; Pulse Ox 99% on R/A; Pain 0/10; ch 01:13 BP 169 / 108; Pulse 93; Resp 16; Pulse Ox 99% on R/A; Pain 0/10; ch 07/16 23:09 Body Mass Index 24.53 (68.95 kg, 167.64 cm) jd3 ED Course: 07/16 22:47 Patient arrived in ED. cf2 22:56 Asa Paz MD is Attending Physician. pkl 23:05 Triage completed. jd3 23:13 Leonarda Husain, RN is Primary Nurse. ch 23:13 Patient has correct armband on for positive identification. Placed in gown. Bed in low ch position. Call light in reach. Side rails up X 1. 23:13 Arm band placed on. jd3 23:13 Initial lab(s) drawn, by me, sent to lab. EKG done. Inserted saline lock: 20 gauge in right wrist, using aseptic technique. Blood collected. 07/17 00:02 CT Head Brain wo Cont In Process Unspecified. EDMS 00:45 Lázaro Butterfield MD is Hospitalizing Provider. pkl 00:52 XRAY Chest (1 view) In Process Unspecified. EDMS 02:11 No provider procedures requiring assistance completed. Patient admitted, IV remains in place. Administered Medications: 07/16 23:30 Drug: NS 0.9% 1000 ml Route: IV; Rate: 100 ml/hr; Site: right wrist; 07/17 02:15 Follow up: IV Status: Order to discontinue infusion; IV Intake: 300ml 07/16 23:40 Drug: Zofran (Ondansetron) 4 mg Route: IVP; Site: right wrist; ch 07/17 02:14 Follow up: Response: No adverse reaction; Marked relief of symptoms ch 00:10 Drug: morphine 2 mg Route: IVP; Site: right wrist; ch 02:14 Follow up: Response: No adverse reaction; No change in condition ch 00:15 Drug: Metoprolol 5 mg Route: IVP; Site: right wrist; ch 02:14 Follow up: Response: No adverse reaction; No change in condition ch 00:35 Drug: Metoprolol 5 mg Route: IVP; Site: right wrist; ch 02:14 Follow up: Response: No adverse reaction; No change in condition ch 01:20 Drug: Metoprolol 5 mg Route: IVP; Site: right wrist; ch 02:14 Follow up: Response: No adverse reaction ch Intake: 02:15 IV: 300ml; Total: 300ml. Outcome: 00:46 Decision to Hospitalize by Provider. pkl 02:08 Admitted to Med/surg accompanied by tech, family with patient, via stretcher, with chart. 02:08 Condition: unchanged 02:08 Instructed on the need for admit. 02:15 Patient left the ED. ch Signatures: Dispatcher MedHoLeonarda Lal RN RN ch Lam, Pin, MD MD pkl Davies, Jonathon, RN RN jJennifer Jara 2
--- NOTE | 2019-07-18 00:47 | EDPHYS ---
Physician Documentation [facility] Name: Lady Raines Age: 73 yrs Sex: Female : 1945 Arrival Date: 07/17/2019 Time: 22:47 Bed 7 Private MD: ED Physician Asa Paz HPI: 07/16 23:53 This 73 yrs old Female presents to ER via Wheelchair with complaints of High pkl Blood Pressure, Disorented, Nausea, Back Pain, Chest Tightness. 23:53 The patient or guardian reports chest pain that is located primarily in the substernal pkl area. Onset: this morning. The pain does not radiate. Associated signs and symptoms: Pertinent positives: confusion. The chest pain is described as tightness. Historical: - Allergies: 23:09 "zocar drugs"; jd3 23:09 Codeine; jd3 23:09 Hydrocodone-Acetaminophen; jd3 23:09 Phenergan; jd3 23:09 tramadol; jd3 07/17 01:40 amlodipine; ch - Home Meds: 07/16 23:09 levothyroxine 75 mcg oral tab [Active]; aspirin 81 mg Oral TbEC 1 tab once daily jd3 [Active]; clonazepam 0.5 mg Oral TbDL [Active]; metoprolol succinate 100 mg oral Tb24 [Active]; amlodipine 5 mg tab [Active]; magnesium oxide 500 mg Oral tab [Active]; clopidogrel 75 mg oral tab [Active]; - PMHx: 23:09 Hypertension; reflux; AFIB; Hyperlipidemia; jd3 07/17 01:48 Anxiety; Hypothyroidism; jd3 - PSHx: 07/16 23:09 Knee surgery; shoulder sx; Hysterectomy; Cholecystectomy; Bladder suspension; back sx; jd3 Heart Surgery; - Immunization history:: Adult Immunizations up to date. - Social history:: Smoking status: Patient denies any tobacco usage or history of. ROS: 23:53 Eyes: Negative for injury, pain, redness, and discharge, ENT: Negative for injury, pkl pain, and discharge, Neck: Negative for injury, pain, and swelling. 23:53 Cardiovascular: Positive for chest pain. 23:53 Respiratory: Negative for cough, shortness of breath. 23:53 Abdomen/GI: Negative for abdominal pain, nausea, vomiting, and diarrhea. 23:53 Back: Negative for acute changes. 23:53 : Negative for urinary symptoms. 23:53 MS/extremity: Negative for acute changes. 23:53 Skin: Negative for rash. 23:53 Neuro: Positive for confusion. Exam: 23:53 Head/Face: Normocephalic, atraumatic. Eyes: Pupils equal round and reactive to light, pkl extra-ocular motions intact. Lids and lashes normal. Conjunctiva and sclera are non-icteric and not injected. Cornea within normal limits. Periorbital areas with no swelling, redness, or edema. ENT: Nares patent. No nasal discharge, no septal abnormalities noted. Tympanic membranes are normal and external auditory canals are clear. Oropharynx with no redness, swelling, or masses, exudates, or evidence of obstruction, uvula midline. Mucous membranes moist. Neck: Trachea midline, no thyromegaly or masses palpated, and no cervical lymphadenopathy. Supple, full range of motion without nuchal rigidity, or vertebral point tenderness. No Meningismus. Chest/axilla: Normal chest wall appearance and motion. Nontender with no deformity. No lesions are appreciated. 23:53 Cardiovascular: Rate: tachycardic, actual rate is 103 bpm, Rhythm: irregularly irregular. 23:53 ECG was reviewed by the Attending Physician. Atrial fib. with RVR. QRS duration 74 ms. 23:53 Respiratory: the patient does not display signs of respiratory distress, Respirations: normal, Breath sounds: are clear throughout. 23:53 Abdomen/GI: Bowel sounds: normal, Palpation: abdomen is soft and non-tender, in all quadrants. 23:53 Back: Exam negative for acute changes. 23:53 : Exam negative for acute changes. 23:53 Musculoskeletal/extremity: Exam is negative for acute changes. 23:53 Skin: Exam negative for rash. 23:53 Neuro: Mentation: confused, Cranial nerves: is grossly normal based on the patient's age, Motor: is normal. Vital Signs: 23:09 BP 164 / 109; Pulse 84; Resp 19 S; Temp 97.3(TE); Pulse Ox 98% on R/A; Weight 68.95 kg jd3 (R); Height 5 ft. 6 in. (167.64 cm) (R); Pain 0/10; 23:45 BP 155 / 119; Pulse 100; ch 03/24 00:00 BP 184 / 110; Pulse 92; Pulse Ox 99% ; Pain 2/10; ch 00:10 BP 194 / 128; Pulse 98; ch 00:20 BP 206 / 132; Pulse 80; ch 00:25 BP 155 / 118; ch 00:35 BP 164 / 119; Pulse 103; ch 00:45 BP 183 / 128; Pulse 92; Resp 16; Temp 98.4; Pulse Ox 99% on R/A; Pain 0/10; ch 01:13 BP 169 / 108; Pulse 93; Resp 16; Pulse Ox 99% on R/A; Pain 0/10; ch 07/16 23:09 Body Mass Index 24.53 (68.95 kg, 167.64 cm) j MDM: 07/16 22:56 Patient medically screened. pkl 07/17 00:44 Data reviewed: vital signs, nurses notes, lab test result(s), EKG, radiologic studies, pkl plain films. 07/16 23:03 Order name: Basic Metabolic Panel; Complete Time: 23:48 [facility] 07/16 23:03 Order name: CBC with Diff; Complete Time: 23:48 [facility] 07/16 23:03 Order name: LFT's; Complete Time: 23:48 [facility] 07/16 23:03 Order name: Magnesium; Complete Time: 23:48 [facility] 07/16 23:03 Order name: NT PRO-BNP; Complete Time: 23:48 [facility] 07/16 23:03 Order name: PT-INR; Complete Time: 23:48 [facility] 07/16 23:03 Order name: Troponin (emerg Dept Use Only); Complete Time: 23:48 [facility] 07/16 23:03 Order name: XRAY Chest (1 view) [facility] 07/16 23:16 Order name: CT Head Brain wo Cont pkl 07/16 23:46 Order name: Urine Dipstick--Ancillary (enter results); Complete Time: 00:06 ar5 07/17 01:03 Order name: Troponin I [facility] 07/17 01:03 Order name: Troponin I [facility] 07/16 23:03 Order name: EKG; Complete Time: 23:05 [facility] 07/16 23:03 Order name: Cardiac monitoring; Complete Time: 23:03 [facility] 07/16 23:03 Order name: EKG - Nurse/Tech; Complete Time: 23:03 [facility] 07/16 23:03 Order name: IV Saline Lock; Complete Time: 23:15 [facility] 07/16 23:03 Order name: Labs collected and sent; Complete Time: 23:15 [facility] 07/16 23:03 Order name: O2 Per Protocol; Complete Time: 23:03 [facility] 07/16 23:03 Order name: O2 Sat Monitoring; Complete Time: 23:03 [facility] 07/17 01:02 Order name: Regular EDMS 07/17 01:03 Order name: EKG Electrocardiogram EDMS 07/17 01:03 Order name: EKG Electrocardiogram EDMS 07/17 01:03 Order name: EKG Electrocardiogram EDMS 07/17 01:03 Order name: EKG Electrocardiogram EDMS Administered Medications: 07/16 23:30 Drug: NS 0.9% 1000 ml Route: IV; Rate: 100 ml/hr; Site: right wrist; 07/17 02:15 Follow up: IV Status: Order to discontinue infusion; IV Intake: 300ml 07/16 23:40 Drug: Zofran (Ondansetron) 4 mg Route: IVP; Site: right wrist; 07/17 02:14 Follow up: Response: No adverse reaction; Marked relief of symptoms ch 00:10 Drug: morphine 2 mg Route: IVP; Site: right wrist; ch 02:14 Follow up: Response: No adverse reaction; No change in condition ch 00:15 Drug: Metoprolol 5 mg Route: IVP; Site: right wrist; ch 02:14 Follow up: Response: No adverse reaction; No change in condition ch 00:35 Drug: Metoprolol 5 mg Route: IVP; Site: right wrist; ch 02:14 Follow up: Response: No adverse reaction; No change in condition ch 01:20 Drug: Metoprolol 5 mg Route: IVP; Site: right wrist; ch 02:14 Follow up: Response: No adverse reaction Disposition: 07/18/19 00:46 Hospitalization ordered by Lázaro Butterfield for Observation. Preliminary diagnosis is Chest pain. Atrial fifrilation with RVR. Confusion. - Bed requested for Telemetry/MedSurg (observation). - Status is Observation. ch - Condition is Stable. - Problem is new. - Symptoms have improved. Signatures: Dispatcher [employer] EDMS Husain, Leonarda, RN RN Asa Paz MD MD pkl Isabelle Gillette RN RN cg Kemal Smith RN RN jd3 Corrections: (The following items were deleted from the chart) 01:20 00:46 Hospitalization Ordered by Lázaro Butterfield MD for Observation. Preliminary diagnosis cg is Chest pain. Atrial fifrilation with RVR. Confusion. Bed requested for Telemetry/MedSurg (observation). Status is Observation. Condition is Stable. Problem is new. Symptoms have improved. pkl 02:15 01:20 07/18/2019 00:46 Hospitalization Ordered by Lázaro Butterfield MD for Observation. Preliminary diagnosis is Chest pain. Atrial fifrilation with RVR. Confusion. Bed requested for Telemetry/MedSurg (observation). Status is Observation. Condition is Stable. Problem is new. Symptoms have improved. cg
[2019-07-18] MEDS ORDERED: ONDANSETRON 4 MG/2 ML VIAL IV PRN (00:58)
[2019-07-18] MEDS ORDERED: MORPHINE 4 MG/ML SYR IV PRN (00:58)
[2019-07-18 02:49] VITALS: BMI 24.9
[2019-07-18] MEDS ORDERED: LABETALOL 20 MG/4ML SYRINGE IV ONE (03:55)
--- NOTE | 2019-07-18 07:11 | RAD REPORT ---
EXAM DESCRIPTION: RAD - Chest Single View - 07/18/2019 12:51 am CLINICAL HISTORY: CHEST PAIN COMPARISON: Two view chest March 2019 TECHNIQUE: AP portable chest image was obtained 07/18/2019 12:51 am . FINDINGS: Lung volumes are relatively low compared to the prior study. Loop recorder overlies the est. Patient has scarring or chronic atelectasis changes in the left midlung field and medial right b ase. No peripheral mass or consolidation identifiable. Heart and vasculature prominent but not substantially different. No measurable pleural effusion and no pneumothorax. No acute bony abnormality seen. No acute aortic findings suspected. IMPRESSION: No acute cardiopulmonary process. Chest findings are accentuated by body habitus, portable technique and shallow inspiration. Significa nt change from comparison is not identifiable.
[2019-07-18] MEDS ORDERED: ASPIRIN EC 81 MG TAB PO SCH (09:00)
[2019-07-18] MEDS: METOPROLOL SUCCINATE 100 MG PO SCH ×2 (09:00→21:38)
[2019-07-18] MEDS ORDERED: METOPROLOL TAR 50 MG TAB PO SCH (09:00)
--- NOTE | 2019-07-18 10:00 | EKG ---
Test Date: 2019-07-17 Test Time: 22:58:04 Gericare Aide: ISIAH MEASUREMENT RESULTS: Intervals: Rate: 103 MS: QRSD: 74 QT: 352 QTc: 461 [place]: P: MS: QRS: 71 T: 55 INTERPRETIVE STATEMENTS: Atrial fibrillation with rapid ventricular response Cannot rule out Anterior infarct, age undetermined Abnormal ECG Compared to ECG 12/26/2016 14:00:47 Myocardial infarct finding now present Sinus bradycardia no longer present First degree AV block no longer present Electronically Signed On 07-18-19 09:59:51 CDT by Mike Campo
--- NOTE | 2019-07-18 10:24 | RAD REPORT ---
EXAM DESCRIPTION: CT - Head Brain Wo Cont - 07/18/2019 3:56 am CLINICAL HISTORY: 73 years Female CONFUSED COMPARISON: December 28, 2018. TECHNIQUE: Images were obtained in axial, sagittal, and coronal planes. This exam was performed according to our departmental dose-optimization program which includes use of Automated Exposure Control, adjustment of the mA and/or kV according to patient size and/or use of i terative reconstruction technique. FINDINGS: Ventricular system appears age appropriate in size. Mild prominence of the cortical sulci. No abnormal areas of increased or decreased parenchymal. No extra-axial fluid collections noted. No evidence for skull fracture. Symmetric aeration mastoid air cells bilaterally. Mucosal thickening with possible fluid right sphenoid sinus. The appearance is unchanged when correlated with the prior study. IMPRESSION: No acute intracranial abnormality. No evidence for hemorrhage, mass lesion, or large acu te infarction. Age-appropriate changes. Electronically signed by: Vi Morales MD 07/17/2019 11:58 PM CDT Due to temporary technical issues with the PACS/Fluency reporting system, reports are being signed by the in house radiologist as a courtesy to ensure prompt reporting. The interpreting radiologist is f ully responsible for the content of the report.
--- NOTE | 2019-07-18 11:53 | P.SSS ---
Patient History Date of Service: 07/18/19 Reason for admission: PALPITATIONS History of Present Illness: MS. CASTILLO IS AN A FIB PATIENT WHO CAME WITH RAPID A FIB. ER DOCTOR THOUGHT SHE WAS CONFUSED BUT SHE IS NOT. I SUSPECT SHE HAS SEVERE ADHD AND STRESS SO SHE DOES NOT STICK TO ONE SENTENCE AND NOT ABLE TO CONTINUE CONVERSATION PROPERLY COMING TO ANY CONCLUSION. THIS IS GOING ON FOR YEARS. SHE SAYS SHE TAKES MEDS BUT I AM NOT SURE. SHE MAY LOSE HER APT [place] SHE IS IN LOW INCOME APT. SHE SHOULD NOT LOSE IT SHE GETS ABOUT $2100 IN INCOME MONTHLY. SHE HAS NO CHEST PAIN, NO DYSPNEA AND SHE IS BACK TO BASELINE. Allergies codeine [Codeine] Allergy (Severe, Verified 08/14/11 23:15) Itching/Hives/Rash gabapentin Allergy (Intermediate, Verified 08/14/11 23:18) Itching/Hives/Rash hydrocodone [Hydrocodone] Allergy (Intermediate, Verified 08/14/11 23:17) Itching/Hives/Rash hydrocodone bitartrate [From Bland] Allergy (Intermediate, Verified 07/23/12 02: 19) Itching/Hives/Rash latex [Latex] Allergy (Intermediate, Verified 08/14/11 23:17) Itching/Hives/Rash milnacipran HCl [From Savella] Allergy (Intermediate, Verified 07/23/12 02:19) Itching/Hives/Rash promethazine HCl [From Phenergan] Allergy (Intermediate, Verified 08/14/11 23:16 ) Itching/Hives/Rash quetiapine fumarate [From Seroquel] Allergy (Intermediate, Verified 08/14/11 23: 16) Itching/Hives/Rash simvastatin [From Zocor] Allergy (Intermediate, Verified 08/14/11 23:16) Itching/Hives/Rash acetaminophen [From Darvocet-N 100] Allergy (Verified 08/15/11 10:23) Itching diltiazem HCl [From Cardizem] Allergy (Verified 07/18/19 03:39) Unknown hydrochlorothiazide [From Hyzaar] Allergy (Verified 07/18/19 03:39) Unknown Latex, Natural Rubber Allergy (Verified 07/18/19 03:39) Unknown losartan potassium [From Hyzaar] Allergy (Verified 07/18/19 03:39) Unknown promethazine [From Phenergan] Allergy (Verified 07/18/19 03:40) Unknown propoxyphene napsylate [From Darvocet-N 100] Allergy (Verified 08/15/11 10:23) Itching tramadol Allergy (Verified 07/18/19 03:40) Unknown amlodipine Adverse Reaction (Intermediate, Verified 07/23/12 02:19) Shortness of breath lisinopril Adverse Reaction (Intermediate, Verified 07/23/12 02:19) Shortness of breath trazodone Adverse Reaction (Verified 07/23/12 02:19) Nausea/Vomiting "zocar drugs" Allergy (Severe, Uncoded 07/18/19 03:40) Unknown Home Medications: Clopidogrel Bisulfate [Plavix*] 75 mg PO DAILY 09/27/18 Levothyroxine Sodium 75 mcg PO [id number] 09/27/18 Magnesium Oxide [Magnesium] 500 mg PO DAILY 09/27/18 Metoprolol Succinate [Toprol Xl*] 100 mg PO BID 09/27/18 Digoxin [Lanoxin*] 0.25 mg PO DAILY #90 tab 07/18/19 clonazePAM [Klonopin*] 0.5 mg PO BEDTIME 07/18/19 - Past Medical/Surgical History Has patient received pneumonia vaccine in the past: Yes Diabetic: No -: afib -: htn -: hypothyroidism -: anxiety -: GERD -: diverticulitis -: colon removal -: hysterectomy -: knee surgery-left -: cholecystectomy -: bladder surgery; sling/botox -: heart surgery-link/ watchman implant - Family History Mother -: Heart disease Notes: heart murmur Father -: Heart disease Notes: enlarged heart. MT - Social History Smoking Status: Never smoker Alcohol use: No CD- Drugs: No Caffeine use: No Place of Residence: Home Review of Systems 10-point ROS is otherwise unremarkable Physical Examination - Vital Signs Temperature: 97.9 F Blood Pressure: 150/90 Pulse: 81 Respirations: 16 Pulse Ox (%): 96 - Physical Exam General: Alert, In no apparent distress HEENT: Atraumatic, PERRLA, Mucous membr. moist/pink, EOMI, Sclerae nonicteric Neck: Supple, 2+ carotid pulse no bruit, No LAD, Without JVD or thyroid abnormality Respiratory: Clear to auscultation bilaterally, Normal air movement Cardiovascular: Regular rate/rhythm, Normal S1 S2 Gastrointestinal: Normal bowel sounds, No tenderness Musculoskeletal: No tenderness Integumentary: No rashes Neurological: Normal gait, Normal speech, Normal strength at 5/5 x4 extr, Normal tone, Normal affect Lymphatics: No axilla or inguinal lymphadenopathy - Studies Laboratory Data (last 24 hrs) 07/17/19 23:05: PT 11.8, INR 1.00 07/17/19 23:05: WBC 8.0, Hgb 14.8, Hct 44.0, Plt Count 285 07/17/19 23:05: Sodium 137, Potassium 3.9, BUN 10, Creatinine 1.01, Glucose 132 H, Magnesium 2.2, Total Bilirubin 0.5, AST 27, ALT 31, Alkaline Phosphatase 83 - Diagnosis (Problem(s)) (1) Rapid atrial fibrillation Current Visit: Yes Status: Acute Plan: I CALLED HER DOCTOR. DR. HALE. HE ADVISED DIGOXIN DAILY AFTER LOADING DOSE. SHE IS STABLE TO GO HOME AFTER TWO LOADING DOSE ORALLY TODAY. SHE CAN'T AFFORD TO GO TO [facility] SO SHE DOES NOT KEEP APTS. (2) HTN (hypertension) Current Visit: Yes Status: Chronic Plan: WILL CONTINUE MEDS AND WATCH. Qualifiers: Hypertension type: essential hypertension Qualified Code(s): I10 - Essential (primary) hypertension (3) ADD (attention deficit disorder) Current Visit: Yes Status: Chronic Plan: SHE HAD ADD FOR YEARS. NOT ABLE TO TREAT WITH MEDS SHE HAS REACTION TO MANY MEDS. Qualifiers: Hyperactivity presence: absent Qualified Code(s): F98.8 - Other specified behavioral and emotional disorders with onset usually occurring in childhood and adolescence (4) Chronic depression Current Visit: Yes Status: Chronic Plan: ANXIETY AND PANIC. FU. NOT ABLE TO HAVE ANY BENEFICIAL EFFECT OF ANTIDEPRESSANTS AND SHE STOPS. - Disposition Disposition: ROUTINE DISCHARGE Condition: GOOD
[2019-07-18 12:22] LABS: MPV 7.6 fL (7.6-11.3)
[2019-07-18] MEDS: Clopidogrel Bisulfate (Plavix) 75 MG TABLETS PO SCH (12:28)
[2019-07-18] MEDS: MAGNESIUM 500 MG PO SCH (12:29)
[2019-07-18] MEDS: DIGOXIN 0.25 MG TABLET PO SCH ×2 (12:36→15:16)
[2019-07-18] MEDS ORDERED: ACETAMINOPHEN 500 MG TAB PO PRN (13:17)
[2019-07-18 13:37] LABS: Platelet Estimate ADEQ
[2019-07-18] MEDS: cloNIDine HCL 0.1 MG TAB PO PRN ×2 (15:35→17:46)
[2019-07-18] MEDS: ENOXAPARIN 40 MG/0.4 ML SQ SCH (17:29)
[2019-07-18] MEDS ORDERED: CLONAZEPAM 0.5 MG PO PRN (21:00)
[2019-07-19] MEDS ORDERED: LEVOTHYROXINE SODIUM 75 MCG PO SCH (06:00)
[2019-07-19 06:26] LABS: Absolute Lymphocytes (CBC) 1.9 K/uL (0.7-4.9); Basophils % 1.2 % (0-1.3); Hematocrit 43.2 % (36.0-45.0); Lymphocytes % 32.2 % (15.3-44.8); MPV 7.8 fL (7.6-11.3); RBC Red Blood Cell Count 4.85 M/uL (3.86-4.86)
[2019-07-19 06:32] LABS: Potassium 3.9 mmol/L (3.5-5.1)
[2019-07-19] MEDS: METOPROLOL SUCCINATE 100 MG PO SCH (08:28)
[2019-07-19] MEDS: ENOXAPARIN 40 MG/0.4 ML SQ SCH (08:28)
[2019-07-19] MEDS: Clopidogrel Bisulfate (Plavix) 75 MG TABLETS PO SCH (08:29)
[2019-07-19] MEDS: MAGNESIUM 500 MG PO SCH (08:29)
[2019-07-19] MEDS ORDERED: ENOXAPARIN 40 MG/0.4 ML SQ SCH (09:00)
[2019-07-19] MEDS ORDERED: DIGOXIN 0.25 MG TABLET PO ONE (09:05)
[2019-07-19 10:14] VITALS: BP 118/98; TEMP 98.5
[2019-07-19 10:39] VITALS: O2SAT 100
== END 2019-07-19 11:32 | disposition home or self-care (01) ==
LOC: ER 22:42 → ERHOLD 07-18 01:01 → 4TH 07-18 01:44
PROVIDERS: ADMIT Internal Medicine; ATTEND Internal Medicine
DX: I48.20 Chronic atrial fibrillation, unspecified (principal); I10 Essential (primary) hypertension; F98.8 Other specified behavioral and emotional disorders with onset usually occurring in childhood and adolescence; F32.9 Major depressive disorder, single episode, unspecified; F41.9 Anxiety disorder, unspecified; E03.9 Hypothyroidism, unspecified; Z79.02 Long term (current) use of antithrombotics/antiplatelets; Z79.82 Long term (current) use of aspirin; Z79.899 Other long term (current) drug therapy
CPT/HCPCS: 96361; 93005; 85025 ×2; 80048 ×2; 36415 ×2; 83735; 85049; 85610; 80076; 81003; 84484 ×3; 83880; 70450; 71045; 96375; 96374; 99285; J1650 ×2; J2270; J7030; J2405 ×2; G0378 ×3

== ENCOUNTER 2021-01-25 00:35 | Emergency (ER) | payer OTHER ==
[2021-01-25 02:17] LABS: Absolute Lymphocytes (CBC) 2.5 K/uL (0.7-4.9); Basophils % 0.7 % (0-1.3); Hematocrit 39.6 % (36.0-45.0); Lymphocytes % 34.9 % (15.3-44.8); RBC Red Blood Cell Count 4.44 M/uL (3.86-4.86)
[2021-01-25] MEDS ORDERED: DIAZEPAM 5 MG TABLET ONE (02:19)
[2021-01-25] MEDS ORDERED: MORPHINE 4 MG/ML SYR ONE (02:20)
[2021-01-25 02:24] LABS: Protime INR 0.94
[2021-01-25 02:28] LABS: Albumin 4.1 g/dL (3.4-5.0); Bilirubin Direct 0.1 mg/dL (0-0.2); Bilirubin Total 0.3 mg/dL (0.2-1.0); Potassium 4.2 mmol/L (3.5-5.1); Protein, Total 8.1 g/dL (6.4-8.2)
--- NOTE | 2021-01-25 04:37 | ER ---
Nurse's Notes [facility] Name: Lady Raines Age: 75 yrs Sex: Female : 1945 Arrival Date: 01/25/2021 Time: 00:57 Bed 6 Private MD: Diagnosis: Other cervical disc degeneration;Muscle spasm Presentation: 01/25 00:59 Chief complaint: Patient states: right sided neck pain that radiates to right side of kc4 head. onset beginning 2 days ago. Pt states she has been under an immense amount of stress, caring for great grandchildren and recovering from covid/ PNA in November. Coronavirus screen: pt tested + for covid 12/14. Ebola Screen: Patient negative for fever greater than or equal to 101.5 degrees Fahrenheit, and additional compatible Ebola Virus Disease symptoms Patient denies exposure to infectious person. Patient denies travel to an Ebola-affected area in the 21 days before illness onset. No symptoms or risks identified at this time. Risk Assessment: Do you want to hurt yourself or someone else? Patient reports no desire to harm self or others. Onset of symptoms was January 23, 2021. 00:59 Method Of Arrival: EMS: [facility] kc4 00:59 Acuity: KOMAL 3 kc4 03:32 Initial Sepsis Screen: Does the patient meet any 2 criteria? No. Patient's initial kc4 sepsis screen is negative. Does the patient have a suspected source of infection? No. Patient's initial sepsis screen is negative. Triage Assessment: 01:13 General: Appears distressed, uncomfortable, malnourished, Behavior is agitated, kc4 anxious. Pain: Complains of pain in scalp Pain radiates to Right side neck raidiating to head Pain currently is 8 out of 10 on a pain scale. at worst was 10 out of 10 on a pain scale. level that patient reports is acceptable is 2 out of 10 on a pain scale. Quality of pain is described as burning, pressure, tender, throbbing, Pain began 2-3 days ago. Is episodic, Alleviated by medications, Aggravated by exercise, increased activity, repositioning, Noted to be agitated, crying, grimacing, guarding, moaning, resistant to movement, restless, Also complains of sleeplessness, Current management - is no interventions. Historical: - Allergies: 01:13 "zocar drugs"; kc4 01:13 amlodipine; kc4 01:13 Hydrocodone-Acetaminophen; kc4 01:13 Codeine; kc4 01:13 Phenergan; kc4 01:13 tramadol; kc4 - Home Meds: 01:13 amlodipine 5 mg tab [Active]; kc4 - PMHx: 01:13 AFIB; Anxiety; Hypertension; Hyperlipidemia; Hypothyroidism; reflux; kc4 - Immunization history:: Adult Immunizations not up to date, Client reports receiving the 1st dose of the Covid vaccine, Client reports receiving the Sae \\T\\ Sae single-dose vaccine. Date received July 08, 2020 Last tetanus immunization: up to date Pneumococcal vaccine is up to date, Flu vaccine is not up to date. It has been more than one year since last vaccine. Hepatitis A vaccine is up to date Hepatitis B vaccine is up to date. - Social history:: Smoking status: Patient/guardian denies using. Screenin:10 Abuse screen: Denies threats or abuse. Nutritional screening: No deficits noted. kc4 Tuberculosis screening: No symptoms or risk factors identified. Never had TB. Possible symptoms: None Risk factors: None. Fall Risk None identified. Fall in past 12 months (25 points). No secondary diagnosis (0 pts). IV access (20 points). Ambulatory Aid- None/Bed Rest/Nurse Assist (0 pts). Gait- Normal/Bed Rest/Wheelchair (0 pts) Mental Status- Oriented to own ability (0 pts). Total Maurer Fall Scale indicates High Risk Score (45 or more points). Fall prevention measures have been instituted. Side Rails Up X 2 Frequent Obs/Assessments Occuring As available patient and family educated on Fall Prevention Program and Strategies. Assessment: 02:04 General: Appears uncomfortable, unkempt, well nourished, Behavior is cooperative, kc4 anxious, crying, Denies fever, feeling ill, fatigue, chills. Pain: Complains of pain in left trapezius Pain radiates to scalp Pain currently is 5 out of 10 on a pain scale. Quality of pain is described as burning, aching, pressure, Pain began 2-3 days ago. Is episodic, Alleviated by medications, Aggravated by exercise, increased activity, repositioning, weight bearing, Noted to be Also complains of no other associated symptoms. Neuro: No deficits noted. Cardiovascular: Capillary refill < 3 seconds Pulses are all present. Rhythm is atrial fibrillation. Respiratory: No deficits noted. GI: No deficits noted. : No deficits noted. EENT: No deficits noted. Derm: No deficits noted. Musculoskeletal: Reports. Vital Signs: 00:59 BP 186 / 119; Pulse 82; Resp 16; Temp 98.8; Pulse Ox 99% on R/A; Weight 91.63 kg (R); kc4 Height 5 ft. 6 in. (167.64 cm); Pain 9/10; 01:25 BP 164 / 95; Pulse 84; Resp 20; Temp 98.9; Pulse Ox 99% on R/A; Pain 8/10; kc4 03:30 BP 155 / 74; Pulse 68; Resp 18; Temp 98.8(O); Pulse Ox 97% on R/A; Pain 4/10; kc4 05:28 BP 100 / 72; Pulse 88; Resp 20; Temp 97.7; Pulse Ox 97% on R/A; kc4 00:59 Body Mass Index 32.60 (91.63 kg, 167.64 cm) kc4 ED Course: 00:57 Patient arrived in ED. tt3 00:59 Agus Henderson MD is Attending Physician. mh7 00:59 Claudia Carbajal is Primary Nurse. kc4 01:13 Triage completed. kc4 01:13 Arm band placed on right wrist. kc4 01:51 Protime (+inr) Sent. kc4 01:51 Ptt, Activated Sent. kc4 01:51 LFT's Sent. kc4 01:51 BMP Sent. kc4 01:51 CBC with Diff Sent. kc4 02:09 No provider procedures requiring assistance completed. Inserted saline lock: 20 gauge kc4 in right forearm, using aseptic technique. 03:02 CT Head C Spine In Process Unspecified. EDMS 03:32 Patient has correct armband on for positive identification. Placed in gown. Bed in low kc4 position. Call light in reach. Side rails up X 1. 05:21 IV discontinued, bleeding controlled, No redness/swelling at site. Pressure dressing kc4 applied. Administered Medications: 02:03 Drug: morphine 4 mg Route: IVP; Site: right forearm; kc4 05:20 Follow up: Response: No adverse reaction kc4 02:03 Drug: Valium (diazepam) 5 mg Route: PO; kc4 05:19 Follow up: Response: No adverse reaction kc4 Outcome: 04:37 Discharge ordered by . devaughn 05:20 Discharged to home ambulatory. kc4 05:20 Condition: stable 05:20 Discharge instructions given to patient. 05:29 Patient left the ED. kc4 Signatures: Dispatcher [employer] Agus Mccord MD MD mh7 Humberto Moran3 Claudia Carbajal kc4
--- NOTE | 2021-01-25 04:37 | EDPHYS ---
Physician Documentation [facility] Name: Lady Raines Age: 75 yrs Sex: Female : 1945 Arrival Date: 01/25/2021 Time: 00:57 Bed 6 Private MD: KHARI Physician Agus Henderson HPI: 01/25 01:05 This 75 yrs old Female presents to ER via EMS with complaints of Neck Pain. mh7 01:05 The patient or guardian complains of pain, that is acute, spasm. The symptoms are mh7 located on the Left posterior neck. Onset: The symptoms/episode began/occurred 2 day(s) ago. Context: The problem was sustained at home, The neck injury/problem resulted from sleeping funny. Associated signs and symptoms: Pertinent negatives: chills, constipation, fever, headache, bladder incontinence, bowel incontinence, nausea, numbness, tingling, vomiting, weakness. The pain does not radiate. Modifying factors: The symptoms are alleviated by massage, the symptoms are aggravated by movement, pressure. Severity of symptoms: At their worst the symptoms were moderate, yesterday, in the emergency department the symptoms have improved, moderately. Patient states that she woke up with left posterior neck pain and muscle spasm 2 days ago. She has increased pain with turning her head to the left. Denies any injuries, fever, headache, chest pain, abdominal pain, shortness of breath, nausea, vomiting, cough, dizziness, numbness/tingling, or weakness.. Historical: - Allergies: 01:13 "zocar drugs"; kc4 01:13 amlodipine; kc4 01:13 Hydrocodone-Acetaminophen; kc4 01:13 Codeine; kc4 01:13 Phenergan; kc4 01:13 tramadol; kc4 - Home Meds: 01:13 amlodipine 5 mg tab [Active]; kc4 - PMHx: 01:13 AFIB; Anxiety; Hypertension; Hyperlipidemia; Hypothyroidism; reflux; kc4 - Immunization history:: Adult Immunizations not up to date, Client reports receiving the 1st dose of the Covid vaccine, Client reports receiving the Sae \\T\\ Sae single-dose vaccine. Date received July 08, 2020 Last tetanus immunization: up to date Pneumococcal vaccine is up to date, Flu vaccine is not up to date. It has been more than one year since last vaccine. Hepatitis A vaccine is up to date Hepatitis B vaccine is up to date. - Social history:: Smoking status: Patient/guardian denies using. ROS: 01:05 Constitutional: Negative for fever, chills, and weight loss, Eyes: Negative for injury, mh7 pain, redness, and discharge, ENT: Negative for injury, pain, and discharge, Cardiovascular: Negative for chest pain, palpitations, and edema, Respiratory: Negative for shortness of breath, cough, wheezing, and pleuritic chest pain, Abdomen/GI: Negative for abdominal pain, nausea, vomiting, diarrhea, and constipation, Back: Negative for injury and pain, : Negative for injury, bleeding, discharge, and swelling, MS/Extremity: Negative for injury and deformity, Skin: Negative for injury, rash, and discoloration, Neuro: Negative for headache, weakness, numbness, tingling, and seizure, Psych: Negative for depression, anxiety, suicide ideation, homicidal ideation, and hallucinations, Allergy/Immunology: Negative for hives, rash, and allergies, Endocrine: Negative for neck swelling, polydipsia, polyuria, polyphagia, and marked weight changes, Hematologic/Lymphatic: Negative for swollen nodes, abnormal bleeding, and unusual bruising. Exam: 01:05 Constitutional: This is a well developed, well nourished patient who is awake, alert, mh7 and in no acute distress. Head/Face: Normocephalic, atraumatic. Eyes: Pupils equal round and reactive to light, extra-ocular motions intact. Lids and lashes normal. Conjunctiva and sclera are non-icteric and not injected. Cornea within normal limits. Periorbital areas with no swelling, redness, or edema. 01:05 Chest/axilla: Normal chest wall appearance and motion. Nontender with no deformity. No lesions are appreciated. 01:05 Respiratory: Lungs have equal breath sounds bilaterally, clear to auscultation and percussion. No rales, rhonchi or wheezes noted. No increased work of breathing, no retractions or nasal flaring. Abdomen/GI: Soft, non-tender, with normal bowel sounds. No distension or tympany. No guarding or rebound. No evidence of tenderness throughout. Back: No spinal tenderness. No costovertebral tenderness. Full range of motion. Skin: Warm, dry with normal turgor. Normal color with no rashes, no lesions, and no evidence of cellulitis. MS/ Extremity: Pulses equal, no cyanosis. Neurovascular intact. Full, normal range of motion. Neuro: Awake and alert, GCS 15, oriented to person, place, time, and situation. Cranial nerves II-XII grossly intact. Motor strength 5/5 in all extremities. Sensory grossly intact. Cerebellar exam normal. Normal gait. Psych: Awake, alert, with orientation to person, place and time. Behavior, mood, and affect are within normal limits. 01:05 Neck: External neck: tenderness, that is moderate, of the left mid cervical area and left trapezius, C-spine: appears grossly normal, no vertebral tenderness, no crepitus, Thyroid: appears normal, Trachea: is midline with no obvious abnormalities, ROM/movement: pain, that is moderate, with rotation to the left, limited range of motion, that is mild, when rotating to the left, Meningeal signs: are not present, nuchal rigidity, is not appreciated, Lymph nodes: no appreciated lymphadenopathy. 01:05 Cardiovascular: Rate: normal, Rhythm: irregularly irregular, Pulses: no pulse deficits are appreciated, Heart sounds: normal, normal S1and S2, Edema: is not appreciated, JVD: is not appreciated. Vital Signs: 00:59 BP 186 / 119; Pulse 82; Resp 16; Temp 98.8; Pulse Ox 99% on R/A; Weight 91.63 kg (R); kc4 Height 5 ft. 6 in. (167.64 cm); Pain 9/10; 01:25 BP 164 / 95; Pulse 84; Resp 20; Temp 98.9; Pulse Ox 99% on R/A; Pain 8/10; kc4 03:30 BP 155 / 74; Pulse 68; Resp 18; Temp 98.8(O); Pulse Ox 97% on R/A; Pain 4/10; kc4 05:28 BP 100 / 72; Pulse 88; Resp 20; Temp 97.7; Pulse Ox 97% on R/A; kc4 00:59 Body Mass Index 32.60 (91.63 kg, 167.64 cm) [facility] MDM: 04:33 Differential diagnosis: arthritis, C-Spine Fracture Cervical Disc Herniation Cervical mh7 Discogenic Pain Cervical Spondylosis cervical strain, Degenerative Disc Disease Osteoarthritis Spondylolisthesis Spondylosis subluxation, torticollis, Muscle spasm. Data reviewed: vital signs, nurses notes, EMS record, old medical records, lab test result(s), CBC, electrolytes, EKG, radiologic studies, CT scan. Data interpreted: Pulse oximetry: on room air is 99 %. Interpretation: normal. Counseling: I had a detailed discussion with the patient and/or guardian regarding: the historical points, exam findings, and any diagnostic results supporting the discharge/admit diagnosis, the presence of at least one elevated blood pressure reading (>120/80) during this emergency department visit, lab results, radiology results, the need for outpatient follow up, to return to the emergency department if symptoms worsen or persist or if there are any questions or concerns that arise at home. Response to treatment: the patient's symptoms have markedly improved after treatment. 04:37 Patient medically screened. [facility] 01/25 01:28 Order name: CBC with Diff; Complete Time: 02:30 [facility] 01/25 01:28 Order name: BMP; Complete Time: 02:30 [facility] 01/25 01:19 Order name: CT Head C Spine [facility] 01/25 01:28 Order name: LFT's; Complete Time: 02:30 [facility] 01/25 01:28 Order name: Protime (+inr); Complete Time: 02:30 [facility] 01/25 01:28 Order name: Ptt, Activated; Complete Time: 02:30 [facility] 01/25 01:28 Order name: Saline Lock; Complete Time: 02:04 [facility] Administered Medications: 02:03 Drug: morphine 4 mg Route: IVP; Site: right forearm; kc4 05:20 Follow up: Response: No adverse reaction kc4 02:03 Drug: Valium (diazepam) 5 mg Route: PO; kc4 05:19 Follow up: Response: No adverse reaction kc4 Disposition Summary: 01/25/21 04:37 Discharge Ordered Location: Home [facility] Problem: new [facility] Symptoms: have improved [facility] Condition: Stable [facility] Diagnosis - Other cervical disc degeneration [facility] - Muscle spasm [facility] Followup: [facility] - With: Private Physician - When: 2 - 3 days - Reason: Worsening of condition, Recheck today's complaints, Continuance of care, Re-evaluation by your physician Discharge Instructions: - Discharge Summary Sheet [facility] - Muscle Pain, Adult [facility] - Degenerative Disk Disease [facility] Forms: - Medication Reconciliation Form [facility] - Thank You Letter [facility] - Antibiotic Education [facility] - Prescription Opioid Use [facility] Prescriptions: - Valium 5 mg Oral Tablet - take 1 tablet by ORAL route every 8 hours As needed; 6 tablet; Refills: 0, mh7 Product Selection Permitted Signatures: Dispatcher [employer] Agus Mccord MD MD [facility] Claudia Carbajal 4
[2021-01-25 05:58] VITALS: O2SAT 97
[2021-01-25 05:59] VITALS: BP 100/72; TEMP 97.7
--- NOTE | 2021-01-25 20:47 | RAD REPORT ---
EXAM DESCRIPTION: CT - Head C Spine Mpr Wo Con - 01/25/2021 4:14 am CLINICAL HISTORY: 75 years, Female, PAIN COMPARISON: 07/17/2019. FINDINGS: Multiple transaxial tomograms of the brain were obtained from the base of the skull to the vertex without contrast. 2-D multiplanar reformats and the coronal and sagittal plane were performed and reviewed. Multiple axial CT images through the cervical spine were obtained at 2 mm slice thickness at 2 mm int erval reconstruction. In addition 2-D multiplanar reformats and the sagittal coronal plane were perfo rmed and reviewed. This exam was performed according to our departmental dose-optimization protocol, which includes auto mated exposure control, adjustment of the mA and/or kV according to patient size and/or use of iterat isaura reconstruction technique. CT head: Brain parenchyma demonstrate mild prominence of the sulci and gyri are corresponding to mild cerebral and cerebellar atrophy. There is very minimal periventricular white matter changes of micro vascular ischemia. There is no midline shift and/or mass effect. There is no evidence for acute intra cranial hemorrhage. Lateral ventricles and cisterns displace normal appearance. No intra or extra axial fluid collections were seen. The calvarium is intact with no evidence for fracture. The visual ized portions of the paranasal sinuses and orbits demonstrate to be clear. CT C-spine: The alignment, vertebral body heights, and disc spaces are normal. There is no evidence of fracture or subluxation. There is degenerative disc disease with decreased intervertebral disc he ight, anterior spondylosis and posterior osteophyte complex at C4-C7. There is minimal anterolisthesi s of C3 over C4 related to uncovertebral degenerative changes. The spinal canal demonstrate no eviden ce for significant stenosis. Neural foramina demonstrate to be unremarkable. The there are uncoverteb ral degenerative changes C2-C7. There is no prevertebral soft tissue swelling. The visualized portion s of the lung apices demonstrate to be unremarkable Sagittal coronal reformatted images demonstrate n o subluxation or bony abnormalities. IMPRESSION: No evidence for acute intracranial hemorrhage. Mild brain atrophy with very minimal periventricular white matter changes of microvascular ischemia. No evidence of acute fracture or subluxation of the cervical spine. Degenerative disc disease at C4-C7 with minimal anterolisthesis of C3 over C4 related to uncovertebra l degenerative changes. Electronically signed by: Cam Ross MD 01/25/2021 3:18 AM CDT Due to temporary technical issues with the PACS/Fluency reporting system, reports are being signed by the in house radiologists without review as a courtesy to insure prompt reporting. The interpreting radiologist is fully responsible for the content of the report.
--- NOTE | 2021-01-28 18:18 | EKG ---
Test Date: 2021-01-25 Test Time: 01:47:56 Knitted Garment Finisher: BECK MEASUREMENT RESULTS: Intervals: Rate: 70 TN: QRSD: 84 QT: 414 QTc: 447 [place]: P: TN: QRS: 84 T: 74 INTERPRETIVE STATEMENTS: Atrial fibrillation with a competing junctional pacemaker Abnormal ECG Compared to ECG 07/17/2019 22:58:04 Myocardial infarct finding no longer present Electronically Signed On 01-28-21 18:06:55 CDT by Mike Campo
== END 2021-01-25 05:29 | disposition home or self-care (01) ==
LOC: ER 00:35
DX: M50.30 Other cervical disc degeneration, unspecified cervical region (principal); M62.838 Other muscle spasm; I10 Essential (primary) hypertension; Z88.5 Allergy status to narcotic agent; Z88.8 Allergy status to other drugs, medicaments and biological substances
CPT/HCPCS: 36415; 70450; 72125; 80048; 80076; 85025; 85610; 85730; 93005; 96374; 99284

== ENCOUNTER 2021-10-24 16:21 | Emergency (ER) | payer MEDICARE, OTHER ==
--- NOTE | 2021-10-24 17:16 | RAD REPORT ---
EXAM DESCRIPTION: CT - Ct Stroke Brain Wo Cont - 10/24/2021 5:07 pm CLINICAL HISTORY: aphasia COMPARISON: 2019 TECHNIQUE: Computed axial tomography of the head was obtained. All CT scans are performed using dose optimization technique as appropriate and may include automated exposure control or mA/KV adjustment according to patient size. FINDINGS: An intracranial bleed is not seen . The ventricles are normal in caliber. No extra-axial fluid collection is noted. Mild low-density within periventricular, deep and subcortical white matter likely ischemic changes se condary to small vessel disease Fluid within the sinuses/ mastoids is not seen. IMPRESSION: No acute intracranial abnormality is seen. If patient's symptoms persist MRI of the bra in would be recommended. Dr Corral of the emergency room was notified at 5:12 p.m. on October 24, 2021
--- NOTE | 2021-10-24 17:17 | RAD REPORT ---
EXAM DESCRIPTION: [place] Single View10/24/2021 4:55 pm CLINICAL HISTORY: aphasia COMPARISON: September 2021 FINDINGS: The lungs appear clear of acute infiltrate. The heart is normal size. patient monitor in place IMPRESSION: No acute abnormalities displayed
[2021-10-24 17:22] LABS: Hematocrit 41.5 % (36.0-45.0); Lymphocytes % 25.3 % (15.3-44.8); MCV 84.8 fL (80-100); MPV 7.5 fL (7.6-11.3); RBC Red Blood Cell Count 4.89 M/uL (3.86-4.86)
[2021-10-24 17:31] LABS: Protime INR 0.93
[2021-10-24 17:34] LABS: Potassium 4.2 mmol/L (3.5-5.1)
--- NOTE | 2021-10-24 19:05 | ER ---
Nurse's Notes [facility] Name: Lady Raines Age: 76 yrs Sex: Female : 1945 Arrival Date: 10/24/2021 Time: 16:30 Bed 4 Private MD: Diagnosis: Aphasia;Aphasia following cerebral infarction;Chronic atrial fibrillation Presentation: 10/24 16:30 Chief complaint: EMS states: APHASIC WITH LEFT FACIAL DROOP, LAST KNOWN NORMAL Y/D bp 1700. Coronavirus screen: At this time, the client does not indicate any symptoms associated with coronavirus-19. Ebola Screen: No symptoms or risks identified at this time. An acute neurological deficit is present. The charge nurse has been notified. The patient has been moved to a treatment area. The patients blood glucose was checked before arriving to the hospital and was found to be normal. Initial Sepsis Screen: Does the patient meet any 2 criteria? Altered Mental Status. No. Patient's initial sepsis screen is negative. Does the patient have a suspected source of infection? No. Patient's initial sepsis screen is negative. Risk Assessment: Do you want to hurt yourself or someone else? Patient reports no desire to harm self or others. Onset of symptoms is unknown. Care prior to arrival: Glucose check: 130. 16:30 Method Of Arrival: EMS: [facility] bp 16:30 Acuity: KOMAL 2 bp Triage Assessment: 16:34 The onset of the patients symptoms was October 23, 2021 at 17:00. General: Appears bp comfortable, unkempt, Behavior is cooperative, anxious. Pain: Denies pain. EENT: No deficits noted. Neuro: Reports GLOBAL APHASIA, LEFT FACIAL DROOP. Cardiovascular: No deficits noted. Respiratory: No deficits noted. GI: No signs and/or symptoms were reported involving the gastrointestinal system. : No signs and/or symptoms were reported regarding the genitourinary system. Derm: No deficits noted. Musculoskeletal: No deficits noted. Stroke Activation: Symptom onset > 6 hours Physician: Stroke Attending; Name: ; Notified At: ; Arrived At: Physician: Chief Stroke Resident; Name: ; Notified At: ; Arrived At: Physician: Stroke Resident; Name: ; Notified At: ; Arrived At: Physician: ED Attending; Name: ; Notified At: ; Arrived At: Physician: ED Resident; Name: ; Notified At: ; Arrived At: Historical: - Allergies: 16:34 "zocar drugs"; bp 16:34 amlodipine; bp 16:34 Codeine; bp 16:34 Hydrocodone-Acetaminophen; bp 16:34 Phenergan; bp 16:34 tramadol; bp 16:34 GABAPENTIN; bp 16:34 diltiazem HCl; bp 16:34 hydrocodone bitartrate; bp 16:34 Propoxyphene; bp 16:34 Losartan; bp 16:34 quetiapine; bp 16:34 milnacipran; bp 16:34 Latex, Natural Rubber; bp 16:34 Lisinopril; bp 16:34 ACETAMINOPHEN; bp 16:34 Hydrochlorothiazide; bp 16:34 Simvastatin; bp 16:34 Trazodone; bp - Home Meds: 16:34 amlodipine 5 mg tab [Active]; bp - PMHx: 16:34 AFIB; Anxiety; Hyperlipidemia; Hypertension; Hypothyroidism; reflux; bp - Immunization history:: Adult Immunizations unknown. - Social history:: Smoking status: Patient denies any tobacco usage or history of. Screenin:34 Abuse screen: Denies threats or abuse. Denies injuries from another. Nutritional bp screening: No deficits noted. Tuberculosis screening: No symptoms or risk factors identified. Fall Risk None identified. Assessment: 16:34 VAN Scoring: Arm Drift: Patients demonstrates NO arm weakness. Patient is VAN Negative. bp The patient has not been NPO before screening. The patient is alert, and able to follow commands. The patient exhibits slurred or garbled speech. The patient is exhibiting difficulty speaking. The patient is exhibiting difficulty understanding words. The patient is able to swallow own secretions with no drooling or need for suction. Patient tolerated one teaspoon of water. No drooling, immediate coughing, gurgling, or clearing of the throat was noted. The patient tolerated 90mL of water. No drooling, immediate coughing, gurgling, or clearing of the throat was noted. The patient failed the bedside swallow screening. The patient will be kept NPO until cleared by Speech Therapy or Physician. Provider notified of bedside swallow screening results: Blu Corral MD. T-PA (Activase) Screening: Contraindications: Patient reports onset of signs and symptoms of stroke greater than 6 hours ago: Yes. 17:33 Reassessment: Patient states symptoms have improved. bp 18:44 Reassessment: Patient appears in no apparent distress at this time. Patient states bp symptoms have improved. 20:00 Reassessment: No changes from previously documented assessment. Patient and/or family ll3 updated on plan of care and expected duration. Pain level reassessed. Patient is alert, oriented x 3, equal unlabored respirations, skin warm/dry/pink. 21:00 Reassessment: No changes from previously documented assessment. Patient and/or family ll3 updated on plan of care and expected duration. Pain level reassessed. Patient is alert, oriented x 3, equal unlabored respirations, skin warm/dry/pink. Vital Signs: 16:30 BP 120 / 80; Pulse 70; Resp 16; Temp 98; Pulse Ox 98% ; bp 17:30 BP 134 / 86; Pulse 71; Resp 17; Pulse Ox 98% ; bp 18:30 BP 110 / 89; Pulse 69; Resp 19; Pulse Ox 100% ; bp 20:00 BP 164 / 82; Pulse 65; Resp 17; Pulse Ox 97% ; ll3 21:00 BP 171 / 93; Pulse 65; Resp 18; Pulse Ox 97% on R/A; ll3 21:14 Weight 65.77 kg; ll3 NIH Stroke Scale Scores: 16:34 NIHSS Score: 8 bp 17:33 NIHSS Score: 2 bp ED Course: 16:30 Patient arrived in ED. bp 16:33 Triage completed. bp 16:34 Arm band placed on. bp 16:34 Patient has correct armband on for positive identification. Bed in low position. Call bp light in reach. Side rails up X2. 16:37 Blu Corral MD is Attending Physician. kdr 16:57 Stroke CXR 1 View In Process Unspecified. EDMS 16:57 Trini Leroy, JACK is Primary Nurse. ph 17:06 Inserted saline lock: 22 gauge in left antecubital area, using aseptic technique. Blood zm collected. 17:07 Basic Metabolic Panel Sent. zm 17:07 CBC with Diff Sent. zm 17:07 Protime (+inr) Sent. zm 17:07 Ptt, Activated Sent. zm 17:09 CT Stroke Brain w/o Contrast In Process Unspecified. EDMS 17:38 EKG done, by ED staff, reviewed by Blu Corral MD. dh3 18:43 initiated a transfer with Devang Koch from the [facility]. eb 18:47 connected the neurologist director translational for [facility] with Dr. Corral for patient eb transfer consultation. 18:52 SARS-COV-2 RT PCR (Document "Date of Onset" if Symptomatic) Sent. zm 20:31 Attending Physician role handed off by Blu Corral MD melissa 20:31 Juliocesar Honeycutt MD is Attending Physician. melissa 20:36 Pt. accepted for transfer by Dr. Guille Aranda at 20:35...admin I spoke to was Kyle Alicia. 21:09 No provider procedures requiring assistance completed. Patient transferred, IV remains ll3 in place. Administered Medications: 21:07 Drug: foLIC Acid 1 mg Route: IVPB; Site: left antecubital; ll3 21:23 Follow up: Response: No adverse reaction; IV Status: Completed infusion; IV Intake: [id number] 21:07 Drug: Aspirin Chewable Tablet 324 mg Route: PO; ll3 21:23 Follow up: Response: No adverse reaction ll3 Medication: 21:23 VIS not applicable for this client. ll3 Intake: 21:23 IV: 10ml; Total: 10ml. ll3 Outcome: 19:05 ER care complete, transfer ordered by . kdr 21:23 Transferred by ground EMS to [facility], Transfer form completed. ll3 X-rays sent w/ patient. 21:23 Condition: stable 21:23 Discharge instructions given to patient, family, EMS, Instructed on the need for transfer, Demonstrated understanding of instructions. 21:25 Patient left the ED. ll3 NIH Stroke Scale - NIH Stroke Score Date: 10/24/2021 Time: 16:34 Total Score = 8 1a. Level of Consciousness (LOC) - 0(Alert) 1b. Level of Consciousness (LOC) (Month \\T\\ Age) - 2(Neither) 1c. LOC Commands (Open \\T\\ Closes Eyes/Direct Care Worker) - 0(Both) 2. Best Gaze (Lateral Gaze Paresis) - 0(Normal) 3. Visual Field Loss - 0(No visual loss) 4. Facial Palsy - 1(Minor Paralysis) 5a. Left Arm: Motor (10-second hold) - 0(No drift) 5b. Right Arm: Motor (10-second hold) - 0(No drift) 6a. Left Leg: Motor (5-second hold - always test supine) - 0(No drift) 6b. Right Leg: Motor (5-second hold - always test supine) - 0(No drift) 7. Limb Ataxia (finger/nose \\T\\ heel/calle - test with eyes open) - 0(Absent) 8. Sensory Loss (pinprick arms/legs/face) - 0(Normal) 9. Best Language: Aphasia (description/naming/reading) - 3(Mute, global aphasia) 10. Dysarthria (speech clarity - read or repeat words) - 2(Severe) 11. Extinction and Inattention (visual/tactile/auditory/spatial/personal) - 0(No abnormality) Initials: bp NIH Stroke Scale - NIH Stroke Score Date: 10/24/2021 Time: 17:33 Total Score = 2 1a. Level of Consciousness (LOC) - 0(Alert) 1b. Level of Consciousness (LOC) (Month \\T\\ Age) - 0(Both) 1c. LOC Commands (Open \\T\\ Closes Eyes/Direct Care Worker) - 0(Both) 2. Best Gaze (Lateral Gaze Paresis) - 0(Normal) 3. Visual Field Loss - 0(No visual loss) 4. Facial Palsy - 1(Minor Paralysis) 5a. Left Arm: Motor (10-second hold) - 0(No drift) 5b. Right Arm: Motor (10-second hold) - 0(No drift) 6a. Left Leg: Motor (5-second hold - always test supine) - 0(No drift) 6b. Right Leg: Motor (5-second hold - always test supine) - 0(No drift) 7. Limb Ataxia (finger/nose \\T\\ heel/calle - test with eyes open) - 0(Absent) 8. Sensory Loss (pinprick arms/legs/face) - 0(Normal) 9. Best Language: Aphasia (description/naming/reading) - 1(Mild to moderate aphasia) 10. Dysarthria (speech clarity - read or repeat words) - 0(Normal) 11. Extinction and Inattention (visual/tactile/auditory/spatial/personal) - 0(No abnormality) Initials: bp Signatures: Dispatcher [employer] EDJuliocesar Lima MD MD cha Rittger, Kevin, MD MD kdr Hall Trini, RN RN Chelsea Billingslye 3 Abiodun Byrne RN RN bp Aleksandra Bill Wendy wm Loubet, Lynsea, RN RN 3 Gema Canas Corrections: (The following items were deleted from the chart) 17:35 16:34 NIHSS Score: 9 bp bp 18:44 18:30 Reassessment: PT TO MRI bp bp
--- NOTE | 2021-10-24 19:05 | EDPHYS ---
Physician Documentation [facility] Name: Lady Raines Age: 76 yrs Sex: Female : 1945 Arrival Date: 10/24/2021 Time: 16:30 Bed 4 Private MD: ED Physician Juliocesar Honeycutt HPI: 10/25 07:18 This 76 yrs old Female presents to ER via EMS with complaints of Aphasia. kdr 10/24 19:08 Last known well was 5 PM yesterday. kdr 10/25 07:18 The patient's problem is reported as Speech difficulty. Onset: The symptoms/episode kdr began/occurred at an unknown time. Last known well was yesterday at 5:00 PM. Duration: The episode is continuous. Context: the episode(s) was witnessed, by no one, symptoms became apparent at an unknown time, occurred at home, occurred while the patient was at rest. Severity of symptoms: At their worst the symptoms were moderate severe in the emergency department the symptoms are unchanged. Patient's baseline: Neuro: alert and fully oriented, Motor: no deficits, Speech: normal for age. It is unknown whether or not the patient has had similar symptoms in the past. It is unknown whether or not the patient has recently seen a physician. Historical: - Allergies: 10/24 16:34 "zocar drugs"; bp 16:34 amlodipine; bp 16:34 Codeine; bp 16:34 Hydrocodone-Acetaminophen; bp 16:34 Phenergan; bp 16:34 tramadol; bp 16:34 GABAPENTIN; bp 16:34 diltiazem HCl; bp 16:34 hydrocodone bitartrate; bp 16:34 Propoxyphene; bp 16:34 Losartan; bp 16:34 quetiapine; bp 16:34 milnacipran; bp 16:34 Latex, Natural Rubber; bp 16:34 Lisinopril; bp 16:34 ACETAMINOPHEN; bp 16:34 Hydrochlorothiazide; bp 16:34 Simvastatin; bp 16:34 Trazodone; bp - Home Meds: 16:34 amlodipine 5 mg tab [Active]; bp - PMHx: 16:34 AFIB; Anxiety; Hyperlipidemia; Hypertension; Hypothyroidism; reflux; bp - Immunization history:: Adult Immunizations unknown. - Social history:: Smoking status: Patient denies any tobacco usage or history of. ROS: 07/02 07:15 Constitutional: Negative for fever, chills, and weight loss, Eyes: Negative for injury, kdr pain, redness, and discharge, ENT: Negative for injury, pain, and discharge, Neck: Negative for injury, pain, and swelling, Cardiovascular: Negative for chest pain, palpitations, and edema, Respiratory: Negative for shortness of breath, cough, wheezing, and pleuritic chest pain, Abdomen/GI: Negative for abdominal pain, nausea, vomiting, diarrhea, and constipation, Back: Negative for injury and pain, : Negative for injury, bleeding, discharge, and swelling, MS/Extremity: Negative for injury and deformity, Skin: Negative for injury, rash, and discoloration, Psych: Negative for depression, anxiety, suicide ideation, homicidal ideation, and hallucinations, Allergy/Immunology: Negative for hives, rash, and allergies, Endocrine: Negative for neck swelling, polydipsia, polyuria, polyphagia, and marked weight changes, Hematologic/Lymphatic: Negative for swollen nodes, abnormal bleeding, and unusual bruising. Neuro: Positive for speech changes, weakness, Negative for altered mental status, dizziness, gait disturbance, headache, hearing loss, loss of consciousness. Exam: 10/24 19:01 ECG was reviewed by the Attending Physician. kdr 20:38 ECG was reviewed by the Attending Physician. [facility] 10/25 07:15 Radiologist reports: Negative/[place] kdr Constitutional: This is a well developed, well nourished patient who is awake, alert, and in no acute distress. Head/Face: Normocephalic, atraumatic. Eyes: Pupils equal round and reactive to light, extra-ocular motions intact. Lids and lashes normal. Conjunctiva and sclera are non-icteric and not injected. Cornea within normal limits. Periorbital areas with no swelling, redness, or edema. Neck: Trachea midline, no thyromegaly or masses palpated, and no cervical lymphadenopathy. Supple, full range of motion without nuchal rigidity, or vertebral point tenderness. No Meningismus. Chest/axilla: Normal chest wall appearance and motion. Nontender with no deformity. No lesions are appreciated. Cardiovascular: Regular rate and rhythm with a normal S1 and S2. No gallops, murmurs, or rubs. Normal PMI, no JVD. No pulse deficits. Respiratory: Lungs have equal breath sounds bilaterally, clear to auscultation and percussion. No rales, rhonchi or wheezes noted. No increased work of breathing, no retractions or nasal flaring. Abdomen/GI: Soft, non-tender, with normal bowel sounds. No distension or tympany. No guarding or rebound. No evidence of tenderness throughout. Back: No spinal tenderness. No costovertebral tenderness. Full range of motion. Skin: Warm, dry with normal turgor. Normal color with no rashes, no lesions, and no evidence of cellulitis. MS/ Extremity: Pulses equal, no cyanosis. Neurovascular intact. Full, normal range of motion. Psych: Awake, alert, with orientation to person, place and time. Behavior, mood, and affect are within normal limits. Neuro: Orientation: appropriate for stated age, Mentation: slow to respond, Memory: unable to test, Speech impaired, Cranial nerves: Speech is slowed. Vital Signs: 10/24 16:30 BP 120 / 80; Pulse 70; Resp 16; Temp 98; Pulse Ox 98% ; bp 17:30 BP 134 / 86; Pulse 71; Resp 17; Pulse Ox 98% ; bp 18:30 BP 110 / 89; Pulse 69; Resp 19; Pulse Ox 100% ; bp 20:00 BP 164 / 82; Pulse 65; Resp 17; Pulse Ox 97% ; ll3 21:00 BP 171 / 93; Pulse 65; Resp 18; Pulse Ox 97% on R/A; ll3 21:14 Weight 65.77 kg; ll3 NIH Stroke Scale Scores: 16:34 NIHSS Score: 8 bp 17:33 NIHSS Score: 2 bp MDM: 19:05 Patient medically screened. kdr 10/25 07:15 Data reviewed: vital signs, nurses notes, lab test result(s), radiologic studies. kdr Counseling: I had a detailed discussion with the patient and/or guardian regarding: the historical points, exam findings, and any diagnostic results supporting the discharge/admit diagnosis, lab results, radiology results, the need to transfer to another facility. 10/24 16:38 Order name: Basic Metabolic Panel; Complete Time: 18:44 kdr 10/24 16:38 Order name: CBC with Diff; Complete Time: 18:44 kdr 10/24 16:38 Order name: Protime (+inr); Complete Time: 18:44 kdr 10/24 16:38 Order name: Ptt, Activated; Complete Time: 18:44 kdr 10/24 16:38 Order name: CT Stroke Brain w/o Contrast; Complete Time: 18:44 kdr 10/24 18:32 Order name: SARS-COV-2 RT PCR (Document "Date of Onset" if Symptomatic); Complete Time: eb 20:32 10/24 16:38 Order name: Stroke CXR 1 View; Complete Time: 18:44 kdr 10/24 16:38 Order name: EKG; Complete Time: 16:39 kdr 10/24 16:38 Order name: Accucheck; Complete Time: 17:14 kdr 10/24 16:38 Order name: Cardiac monitoring; Complete Time: 17:14 kdr 10/24 16:38 Order name: EKG - Nurse/Tech; Complete Time: 17:28 kdr 10/24 16:38 Order name: IV Saline Lock; Complete Time: 17:07 kdr 10/24 16:38 Order name: Labs collected and sent; Complete Time: 17:07 kdr 10/24 16:38 Order name: NPO; Complete Time: 17:14 kdr 10/24 16:38 Order name: O2 Per Protocol; Complete Time: 17:14 kdr 10/24 16:38 Order name: O2 Sat Monitoring; Complete Time: 17:14 kdr 10/24 16:38 Order name: Stroke Swallow Screen; Complete Time: 17:30 kdr EC/01 19:01 Rate is 67 beats/min. Rhythm is irregularly irregular, A fib with No ectopy. QRS [place] kdr is Normal. MA interval is normal. QRS interval is normal. QT interval is normal. Clinical impression: Atrial Fibrillation. 20:38 Rate is 67 beats/min. Rhythm is regular. QRS [place] is Normal. MA interval is normal. QRS melissa interval is normal. QT interval is normal. No Q waves. T waves are Normal. No ST changes noted. Clinical impression: Atrial Fibrillation and No evidence of ischemia. Interpreted by me. Reviewed by me. Administered Medications: 21:07 Drug: foLIC Acid 1 mg Route: IVPB; Site: left antecubital; ll3 21:23 Follow up: Response: No adverse reaction; IV Status: Completed infusion; IV Intake: [id number] 21:07 Drug: Aspirin Chewable Tablet 324 mg Route: PO; ll3 21:23 Follow up: Response: No adverse reaction ll3 Disposition Summary: 10/24/21 19:05 Transfer Ordered Transfer Location: [facility] kdr Reason: Higher level of care kdr Condition: Fair kdr Problem: new kdr Symptoms: have improved kdr Accepting Physician: cc/[facility](10/24/21 21:25) ll3 Diagnosis - Aphasia kdr - Aphasia following cerebral infarction kdr - Chronic atrial fibrillation melissa Forms: - Medication Reconciliation Form kdr - SBAR form kdr NIH Stroke Scale - NIH Stroke Score Date: 10/24/2021 Time: 16:34 Total Score = 8 1a. Level of Consciousness (LOC) - 0(Alert) 1b. Level of Consciousness (LOC) (Month \\T\\ Age) - 2(Neither) 1c. LOC Commands (Open \\T\\ Closes Eyes/Carbonation Equipment Operator) - 0(Both) 2. Best Gaze (Lateral Gaze Paresis) - 0(Normal) 3. Visual Field Loss - 0(No visual loss) 4. Facial Palsy - 1(Minor Paralysis) 5a. Left Arm: Motor (10-second hold) - 0(No drift) 5b. Right Arm: Motor (10-second hold) - 0(No drift) 6a. Left Leg: Motor (5-second hold - always test supine) - 0(No drift) 6b. Right Leg: Motor (5-second hold - always test supine) - 0(No drift) 7. Limb Ataxia (finger/nose \\T\\ heel/calle - test with eyes open) - 0(Absent) 8. Sensory Loss (pinprick arms/legs/face) - 0(Normal) 9. Best Language: Aphasia (description/naming/reading) - 3(Mute, global aphasia) 10. Dysarthria (speech clarity - read or repeat words) - 2(Severe) 11. Extinction and Inattention (visual/tactile/auditory/spatial/personal) - 0(No abnormality) Initials: bp NIH Stroke Scale - NIH Stroke Score Date: 10/24/2021 Time: 17:33 Total Score = 2 1a. Level of Consciousness (LOC) - 0(Alert) 1b. Level of Consciousness (LOC) (Month \\T\\ Age) - 0(Both) 1c. LOC Commands (Open \\T\\ Closes Eyes/Carbonation Equipment Operator) - 0(Both) 2. Best Gaze (Lateral Gaze Paresis) - 0(Normal) 3. Visual Field Loss - 0(No visual loss) 4. Facial Palsy - 1(Minor Paralysis) 5a. Left Arm: Motor (10-second hold) - 0(No drift) 5b. Right Arm: Motor (10-second hold) - 0(No drift) 6a. Left Leg: Motor (5-second hold - always test supine) - 0(No drift) 6b. Right Leg: Motor (5-second hold - always test supine) - 0(No drift) 7. Limb Ataxia (finger/nose \\T\\ heel/calle - test with eyes open) - 0(Absent) 8. Sensory Loss (pinprick arms/legs/face) - 0(Normal) 9. Best Language: Aphasia (description/naming/reading) - 1(Mild to moderate aphasia) 10. Dysarthria (speech clarity - read or repeat words) - 0(Normal) 11. Extinction and Inattention (visual/tactile/auditory/spatial/personal) - 0(No abnormality) Initials: bp Signatures: Dispatcher [employer] EDJuliocesar Lima MD MD cha Rittger, Kevin, MD MD kdr Peltier, Brian RN RN Jerson Aponte RN RN ll3 Vianney Lew PA PA sb3 Corrections: (The following items were deleted from the chart) 20:39 19:05 cc/[facility] 21:25 20:39 /[facility] ll3
[2021-10-24] MEDS ORDERED: ASPIRIN 81 MG CHEWABLE TABLET ONE (21:08)
[2021-10-24] MEDS ORDERED: FOLIC ACID 5 MG/ML VIAL ONE (21:08)
[2021-10-24 22:02] VITALS: TEMP 98
[2021-10-24 22:39] VITALS: O2SAT 97
[2021-10-24 22:51] VITALS: BP 171/93
--- NOTE | 2021-10-28 08:05 | EKG ---
Test Date: 2021-10-24 Test Time: 17:30:16 Community Health Educator: RODRIGO MEASUREMENT RESULTS: Intervals: Rate: 67 UT: QRSD: 80 QT: 416 QTc: 439 Burton: P: UT: QRS: 68 T: 99 INTERPRETIVE STATEMENTS: Atrial fibrillation Abnormal ECG Compared to ECG 01/25/2021 01:47:56 No significant changes Electronically Signed On 10-28-21 07:56:30 CDT by Mike Campo
== END 2021-10-24 21:25 | disposition short-term general hospital (02) ==
LOC: ER 16:21
DX: R47.01 Aphasia (principal); I69.320 Aphasia following cerebral infarction; I48.19 Other persistent atrial fibrillation; R29.708 NIHSS score 8; Z20.822 Contact with and (suspected) exposure to COVID-19; I10 Essential (primary) hypertension; E78.5 Hyperlipidemia, unspecified; E03.9 Hypothyroidism, unspecified; F41.9 Anxiety disorder, unspecified; Z88.5 Allergy status to narcotic agent; Z88.6 Allergy status to analgesic agent; Z88.8 Allergy status to other drugs, medicaments and biological substances; Z91.040 Latex allergy status; Z91.048 Other nonmedicinal substance allergy status
CPT/HCPCS: 96365; 85025; 80048; 36415; 85610; 85730; 70450; 71045; 99285; U0003; 93005